=== PATIENT | female | born 1945 | race Caucasian/White ===

== ENCOUNTER 2016-07-11 10:33 | Outpatient (RCR) | payer MEDICARE ==
[~2016-07-11 10:33] MED LIST: ASPI-586 PO; ESTR0.5T3 VG; FLUT9.9S NS; LORA0.5T PO; METO-270 PO; PROP20TA5 PO; [UNRECOGNIZED DRUG - CODE] OP
--- OUTSIDE RECORDS SUMMARY | 2016-07-11 10:39 | XMS REPORT | Continuity of Care Document ---
Author Author [facility] Organization [facility] Address Unknown Phone Unavailable Care Team Providers Care Welding Machine Operator Thermit Name Role Phone Yash Johnson PCP [phone] Source Comments Some departments are not documenting in the electronic medical record. If you do not see the information that you expected, contact Release of Information in the Health Information Management department at [phone] for further assistance in locating additional records.[facility] Active Allergies and Adverse Reactions Allergen Noted Date Severity Reactions Comments Keflex 04/11/2016 Low UNKNOWN Current Medications Prescription Sig. Disp. Refills Start End Date Status Date propranolol (INDERAL) 20 Take 20 mg by mouth as Active mg tablet Needed (Pt takes after, metoprolol: Take one tablet if pulse exceeds 150-188 and if pulse and chest pain persists take one more tablet in an hour.). LORazepam (ATIVAN) 0.5 mg Take 1 Tab by mouth three Active tablet times daily. 2-3 Tablets taken daily; pt trying to take 2 tablets daily meloxicam (MOBIC) 7.5 mg Take 7.5 mg by mouth Active tablet twice weekly. Pt not taking daily as directed HYDROcodone-acetaminophen Take 1 Tab by mouth every Active (ZYDONE) 7.5-400 mg 6 hours as needed for tablet Pain (pt takes maybe 5 times a month) other medication 1 Dose four times daily. Active Eye drops aspirin 81 mg chewable Take 81 mg by mouth Active tablet daily. Take with food. fluticasone (FLOVENT HFA) Inhale 2 Puffs by mouth Active 110 mcg/actuation inhaler as Needed for Other.... MULTIVITAMIN WITH Take by mouth daily. Active MINERALS (ONE-A-DAY 50 PLUS PO) Active Problems Problem Noted Date AVNRT (AV marquita re-entry tachycardia) ([facility]) 06/01/2016 Overview: 05/31/16 SVT Ablation--Slow pathway modification for typical AVNRT - Dr. Knowles SVT (supraventricular tachycardia) (HCC) 05/31/2016 Tachycardia 05/17/2016 Overview: 03/2016 PioneerGEORGE: Echocardiogram -- Normal 03/2016 Pioneer MS: Stress thallium - "normal" 04/13/16 ILR implant - Medtronic Linq - Essential hypertension 05/17/2016 Hypercholesteremia 05/17/2016 JULIO (obstructive sleep apnea) 05/17/2016 Chronic headache 05/17/2016 Most Recent Encounters Date Type Specialty Providers Description 07/01/2016 Telephone Cardiology Joan Blackman RN Follow-up Phone Call - regarding ILR report- MPE recommendations 06/22/2016 Hospital Cardiology Temo Knowles MD Encounter 06/22/2016 Telephone Cardiology Joan Blackman RN HRM - Abnormal Results (Remote Device - Abnormal Rhythms) - Linq- frequent PVCs 06/22/2016 Orders Only Cardiology Temo Knowles MD Essential hypertension (Primary Dx); Hypercholesteremia; SVT (supraventricular tachycardia) (HCC); AVNRT (AV marquita re-entry tachycardia) (HCC); Tachycardia 06/21/2016 Hospital Cardiology Temo Knowles MD Encounter 06/01/2016 Telephone Cardiology Ginny Lewis RN 06/01/2016 Telephone Cardiology Alen Lara Remote Monitoring Questions - LM on pt's cell phone number to send a remote transmission from LINQ monitor to see add'l information. 05/31/2016 Hospital Cardiology Temo Knowles MD Encounter 05/31/2016 Hospital Cardiology Temo Knowles MD SVT ( supraventricular Encounter tachycardia) (HCC) 05/31/2016 Surgery Cardiology Temo Knowles MD Supraventricular Tachycardia Radiofrequency Ablation 05/30/2016 Anesthesia Cardiology Kermit Vega MD Event 05/30/2016 Pre-Admit Cardiology Taisha Lucia, NAVAL DESIGNER-C Orders Only 05/26/2016 Documentation Cardiology Magalie Wade, RN Labs Only - cbc, mg, bmp 05/24/2016 Documentation Cardiology Magalie Wade, flow match sofa cutter Request - pre procedure lab orders to [facility] 05/20/2016 Telephone Cardiology Trang Giang, Remote Monitoring RN Questions - symptom triggers 05/19/2016 Telephone Cardiology Mary Felix RN HRM - Abnormal Results (Remote Device - Abnormal Rhythms) - PVCs 05/18/2016 Documentation Cardiology Rj Bautista RN Precertification - Medicare 05/18/2016 Telephone Cardiology Kaela Pichardo LPN Procedure - Schedule ablation 05/17/2016 Office Visit Cardiology Temo Knowles MD SVT - possible SVT ablation 05/17/2016 Hospital Cardiology Temo Knowles MD Canceled (Error) Encounter 05/17/2016 Pre-Procedure Cardiology Magalie Wade RN EP Pre-Procedure Instructions Instructions - Electropysiology study with SVT ablation 05/17/2016 [facility] Cardiology Temo Knowles MD Encounter 05/11/2016 Office Visit Optometry Aileen Gallo, OD Visual disturbance (Primary Dx); Posterior vitreous detachment of both eyes; Pseudophakia of both eyes; ERM OS (epiretinal membrane, left eye); Anisometropia 05/06/2016 Telephone Cardiology Feliz Gonzalez RN HRM - Abnormal Results (Remote Device - Abnormal Rhythms) - LINQ symptom triggered / tachy event 05/0505/06/2016 Telephone Cardiology Alen Lara Remote Monitoring Questions - LM for pt to send a remote transmission from LINQ monitor to see any stored information. 05/03/2016 Telephone Cardiology Minda Palacios RN Other - SVT ablation discussion 05/01/2016 Documentation Cardiology Temo Knowles MD SVT 04/29/2016 Telephone Cardiology Feliz Gonzalez RN HRM - Abnormal Results (Remote Device - Abnormal Rhythms) - LINQ symptom events from 04/2804/29/2016 Telephone Cardiology Alen Lara Remote Monitoring Questions - LM for pt to send a remote transmission from LINQ monitor to see stored symptom triggered event. Pt verbalized understanding and sent full transmission. 04/18/2016 Telephone Cardiology Fany Rosales RN Follow-up Phone Call - LINQ tachy event 04/14/2016 Hospital Cardiology Temo Knowles MD Encounter 04/14/2016 Telephone Cardiology Kaela Pichardo LPN Remote Monitoring Questions - Needs help in setting it up 04/13/2016 Hospital Cardiology Temo Knowles MD Encounter 04/13/2016 Office Visit Cardiology Temo Knowles MD New Patient - Tachycardia ref Dr. Yash Johnson 04/13/2016 Documentation Cardiology Rj Bautista RN Precertification - Medicare 04/11/2016 Telephone Cardiology Kaela Pichardo LPN Patient Information - Returning call 04/11/2016 Patient Profile Cardiology Tiffanie Pappas Patient - Tacycardia Social History Tobacco Use Types Packs/Day Years Used Date Never Smoker Smokeless Tobacco: Never Used Alcohol Use Drinks/Week oz/Week Comments Yes Social Last Filed Vital Signs Vital Sign Reading Time Taken Blood Pressure 127/71 05/31/2016 4:00 PM CDT Pulse 60 05/31/2016 4:00 PM CDT Temperature 36.8 C (98.2 F) 05/31/2016 9:55 AM CDT Respiratory Rate - - Height 1.651 m (5' 5") 05/31/2016 6:00 AM CDT Weight 55.792 kg (123 lb) 05/31/2016 6:00 AM CDT Body Mass Index 20.47 05/31/2016 6:00 AM CDT Oxygen Saturation 95% 05/31/2016 4:00 PM CDT Plan of Care Date Type Specialty Providers Description 07/26/2016 Appointment Cardiology Temo Knowles MD [address] [facility] [place] [address] [phone] (Fax) 08/09/2016 Appointment Ophthalmology Aileen Gallo, OD [address] [place] [address] [phone] (Fax) 08/30/2016 Appointment Cardiology Temo Knowles MD [address] [facility] [address] [place] [address] [phone] (Fax) 08/30/2016 Appointment Cardiology Temo Knowles MD [address] [facility] [address] [address] [place] [address] [phone] (Fax) Health Maintenance Due Date Last Done Comments Hepatitis C Screening 1945 Physical (Comprehensive) 1952 Exam Pertussis Vaccine 1956 Tetanus Vaccine 1962 Breast Cancer Screening 1985 Colorectal Cancer 1995 Screening Shingles Vaccine 2005 Osteoporosis Screening 2010 Prevnar/Pneumovax (#1) 2010 Influenza Vaccine 05/19/2016 Procedures from Last 3 Months Procedure Name Priority Date/Time Associated Diagnosis Comments PROCEDURES-SCAN 06/02/2016 Results for this 10:53 AM CDT procedure are in the results section. PROCEDURES-SCAN 06/02/2016 Results for this 10:52 AM CDT procedure are in the results section. PROCEDURES-SCAN 06/02/2016 Results for this 10:52 AM CDT procedure are in the results section. PROCEDURES-SCAN 06/02/2016 Results for this 10:41 AM CDT procedure are in the results section. Results from Last 3 Months DEVICE EVALUATION - REMOTE ILR (06/22/2016 11:26 AM)Only the most recent of 3 results within the time period is included. Component Value Range Device Implanted By Dr.Martin Knowles Generator Model # [id number] Generator Serial # [id number] Generator Implnat Date 04/13/16 Remote Monitor Serial# [id number] YEE/EOL Indicator per transmitter Generator Termite Treater Dailymotion Wireless Generator Yes Device Type ILR Device Goldsmith Carelink Express Transmitter Compatible Permanent Comments r waves 0.28-0.34mV on date of implant ILR History of Afib no ILR Symptom Duration 4 7.5 mins each ILR Tachy Rate 158 ILR Tachy Duration 16 ILR Pause Duration 3 ILR Lev Rate 30 ILR Lev Duration 4 ILR AT Events Since Last n/a Interrogation ILR AT Lifetime Events as n/a of EP Device Followed By MAC ILR AF Rate AF only ILR AF Duration episodes > 6 mins ILR Current Monitoring 06/21/2016 to 07/21/2016 Period ILR Date of Last Daily 07/01/2016 Connection ILR Lifetime Events as of 07/01/2016 Datetion ILR Symptom Events Since 4 Last Interrogation ILR Symptom Lifetime 12 Events as of ILR Tachy Events Since 0 Last Interrogation ILR Tachy Lifetime Events 7 as of ILR Pause Events Since 0 Last Interrogation ILR Pause Lifetime Events 0 as of ILR Lev Events Since 0 Last Interrogation ILR Lev Lifetime Events 0 as of ILR AF Events Since Last 0 Interrogation ILR AF Lifetime Events as 0 of ILR Percent Time in AT/AF 0.0% Events Since Last Interrogation ILR Percent Time in AT/AF 0.0% Lifetime of Events as of ILR Battery Status OK ILR Presenting ECG Strip 06/22/16 SR with pvc's Generator Location Left Narrative [07/01/2016 4:04:44 PM - ALEN LARA] Reviewed Full Report. No new events to report. Will continue to monitor pt. I will route to Dr. Perez in the EP lab at [facility] for review and co-sign. Dr. Knowles is out of the office. Pt with relatively frequent VPDs--Sxic and no recurrent SVT.At this time we will get a 24 Hour Holter, either here at [facility] or with Dr. Esquivel to quantify her VPDs per 24 hrs and the we will likely initiate Mexilitine 200 mgBID, even if not > 20%, etc. Since her VPDs are Sxic. Temo Knowles MD [06/22/2016 4:30:58 PM - DENAE KOENIG] Full Report received. VRH shows appropriate botello curve distribution of HR. #19 Symptom SR with PVC's and artifact. #18 Symptom SR in the 90's with PVC's. Deemed WNL. Please click blue HRM Data Sheet Hyperlink for Report #18 #17 Symptom 06/04/16 @ 15:06 majority of strips shows a ST at a rate just above 100 bpm, with pvc's and some artifact. #16 Symptom 06/04/16 @ 14:[address] in the low 100's with frequent PVC's. Called pt's home to discuss symptoms, pt not available. Spoke with family member that relayed he would tell the pt the transmission was received and reviewed. Family member mention the pt had been working in the barn more the past few days, but I explained the symptoms were from 06/19/16. Educated to have pt call if she had any concerns or questions. Routed to [facility] for review and sign off. [06/22/2016 11:27:45 AM - ALEN LARA] Reviewed Summary Report. Two symptom triggered events rec'd #19 Symptom 06/19 @ 23:07 the 30 sec strip shows SR in the 80's-90's. Plot graph indicates possible premature contractions occurred between 2-5 min prior to symptom trigger activation. #16 Symptom / @ 14:33 the 30 sec strip shows SA in the 90's-100's with freq/trigeminal PVCs. Pt may need to send a remote transmission to see any stored information. Strips were scanned to review and I will route to Dr. Knowles for review and co-sign. EP nurse was flagged to review and f/u if needed. PROCEDURES-SCAN (06/02/2016 10:53 AM) Narrative Ordered by an unspecified provider. PROCEDURES-SCAN (06/02/2016 10:52 AM) Narrative Ordered by an unspecified provider. PROCEDURES-SCAN (06/02/2016 10:52 AM) Narrative Ordered by an unspecified provider. PROCEDURES-SCAN (06/02/2016 10:41 AM) Narrative Ordered by an unspecified provider. EP STUDY (05/31/2016 5:30 PM) Impressions : 1.Typical AVNRT easily and reproducibly induced. 2.Successful AVN Modification/ Slow Pathway Ablation. 3.NO evidence of Antegrade slow pathway function post ablation was present.ONLY Retrograde remnant slow pathway was present post RFA with a RG only jump and no echos and no reentry.No SVT could be induced post RFA despite aggressive programmed stimulation. PLAN: 1.We will monitor the patient overnight in the hospital with plans for discharge in the morning. 2.Will stop her Toprol. Narrative BRIEF SUMMARY: S/P Successful RFA for typical AVNRT Patient also had inducible atrial flutter it was very brief and nonsustained. With standard SVT catheter placement the earliest atrial activation was the His-A. CS activation was proximal to distal. It is possible that this is an isthmus-dependent atrial flutter but was not able to sustain the rhythm long enough to map.It is UNLIKELY that this is currently a clinically significant arrhythmia. Typical AVNRT was easily and reproducibly induced. First RF application just outside the os of the coronary sinus and the typical slow pathway location resulted in no SVT induced and dramatic modification of the slow pathway.Additional RFA resulted in no antegrade evidence of slow pathway function, and no inducible SVT, a retrograde slow pathway noted with a "jump". No evidence of her entry, no echo beats, et cetera. No evidence of accessory pathway. Pt. Tolerated the procedure well. DC home possibly later this evening if she is clinically stable Changes in her medications will include:Discontinuation of Toprol-XL She'll continue to utilize her Medtronic Reveal LinQ Implantable Looping Monitor device with any recurrent symptoms. We will make sure her Medtronic Reveal LinQ Implantable Looping Monitor Device is "cleared" prior to discharge. PROCEDURE: AV Node Modification-AVNRT RFA --Comprehensive EP study with coronary sinus catheter placement. --Three-dimensional electroanatomic mapping using Ensite NavX. --Moderate sedation. --SVT Ablation--Slow pathway modification for typical AVNRT. TRANSMISSION SYSTEM OPERATOR:Temo Knowles M.D. DIVISIONAL STOREKEEPER:None DATE:05/31/2016 INDICATION FOR PROCEDURE:Recurrent SVT CONSENT: The risks, benefits, indications and alternatives to the procedure were explained in detail with the patient and discussed at length prior to the procedure. The patient expressed understanding of the risks and consented to the procedure. All questions asked were answered and all permits were signed.The patient was transported to the Electrophysiology Laboratory in a non-sedated state and was placed supine on the fluoroscopy table. SEDATION: The patient underwent moderate sedation using Versed and Fentanyl administered by a trained Registered Nurse whom I supervised. Continuous blood pressure, heart rate and O2 saturation monitoring with supplemental oxygen as needed was utilized throughout the procedure. ANESTHESIA: Marcaine 0.25% was injected into subcutaneous tissue for local anesthesia. OTHER MEDICATIONS:NONE ACCESS: The left and right groins were prepped and draped in a sterile fashion. Marcaine 0.25% was injected into the subcutaneous tissue overlying the right and left femoral veins. The right and left femoral veins were accessed using the modified Seldinger technique with placement of sheaths and catheters as described below. CATHETERS USED: 1.EP Janet-curve hexapolar catheter placed via access with a 6 [place]an sheath in the left femoral vein and advanced to the right ventricular apex. 2.EP His-curve quadrapolar catheter placed via access with a 6 [place] sheath in the left femoral vein and advanced to the His position. 3.EP Janet-curve quadrapolar catheter placed via access with a 6 [place] sheath in the left femoral vein and advanced to the high right atrium. 4.EP decapolar deflectable catheter placed via access with a 6 [place] sheath in the right femoral vein and advanced to the coronary sinus. 5.4.0 mm [id number] EPTmapping/ablation catheter placed via access with a 7 [place] sheath in the right femoral vein and advanced to the right atrium to be used for mapping and ablation. DETAILS OF PROCEDURE: Electrophysiology Study & Programmed Stimulation: Following insertion of catheters as above, baseline measurements were obtained and programmed stimulation was performed as described below. Programmed extra stimulation was performed with evidence of dual AV marquita physiology and SVT was Induced. Following ablation, a repeat EP study was performed. EP STUDY FINDINGS: Programmed Stimulation: 1.Incremental Atrial pacing. 2.Incremental Ventricular. 3.Single and double atrial extra stimuli were performed at drive trains of600 msec. 4.Single ventricular extra stimuli were performed at drive train of 600 msec. Baseline Measurements: Initial:Sinus rhythm, cycle length 960 msec, P-R 140 msec, QRS 90 msec, Q-T 401 msec. Final:Sinus rhythm, cycle length 840 msec, P-R 139 msec, QRS 108 msec, Q-T 389 msec. Sinus Node Function: The patient was in normal sinus rhythm at the beginning of the procedure. AV Marquita Function: --A-H interval at baseline was 80 msec at beginning and 90 msec at completion of procedure. --Anterograde AV Wenckebach -Baseline:340 with a shift to SP around 420 ms -Post RFA Baseline:430 --Retrograde AV Wenckebach: -Baseline:330 -Post RFA Baseline:330 --Antegrade AVN ERP: -Baseline: 600/280 ms Jumps and Echos: 600/300 jump and Echo beat SVT Induced at 600/400/310 ms -Post RFA Baseline: 600/360 ms 600/400/380 Jumps and Echos: NONE--Antegrade ONLY Retrograde remnant slow pathway was present post RFA with a RG only jump and no echos and no reentry. NO evidence of Antegrade slow pathway function post ablation. No SVT could be induced post RFA despite aggressive programmed stimulation. --Retrograde AVN ERP: -Baseline: 600/< 280 ms ms Jumps and Echos:None at baseline -Post RFA Baseline: 600/< 270 ms Jumps and Echos: 600/340 to SP but NO reentry Atrial Function: A.Atrial ERP: Baseline:600/250 Post RFA Baseline:600/260 B.NONSUSTAINED Atrial flutter was reproducibly /340 ms but was never longer than a few seconds. His Purkinje System Function: A.H-V interval at baseline was 45 msec and was without significant change post RFA. There was no block below the His noted during testing. Accessory Pathway: No evidence of an accessory pathway was noted--with concentric and decremental antegrade and retrograde conduction via the AVN. ARRHYTHMIAS, MAPPING AND ABLATION: Arrhythmias Induced: A.Typical ANRT -SVT RY=983 -Induction:600/400/310 ms -Termination:Sensed single VPD and Overdrive V-pacing -Earliest RG atrial activation was the HBE-A -During SVT the WP=951 ms; the SHEPARD=36 ms -During SVT the VA time=16 ms -During SVT a sensed single VPD introduced when the His was refractory terminated SVT Mapping and Ablation: We advanced the EPT [id number] mapping/ablation catheter to the right atrium, and the His and AV node were mapped extensively using the intracrdiac 3-D mapping system and the HIS region was identified and displayed on the Litespriteite NavX mapping system. Applications of RF energy were delivered in the posterior-septal area of the slow pathway region.Just outside of the CS os. The CS os appeared to be very vertical and somewhat large therefore initially maintained some catheter stability without "falling in" to the CS was difficult. Ablation induced junctional beats/an accelerated junctional rhythm. We then repeated EP study.We were not able to induce tachycardia. ONLY Retrograde remnant slow pathway was present post RFA with a RG only jump and no echos and no reentry. NO evidence of Antegrade slow pathway function post ablation. No SVT could be induced post RFA despite aggressive programmed stimulation. Completion of Study: The catheters were then removed and the patient was transported to the outpatient holding area with plans for removal of the sheaths with manual pressure held until adequate hemostasis was noted. The patient tolerated the procedure well. No adverse events were noted at the end of the study. DEVICE EVALUATION - ILR (05/31/2016 3:07 PM) Component Value Range Device Implanted By Dr.Martin Knowles Generator Model # LNQ11 Generator Serial # [id number] Generator Implnat Date 04/13/16 Remote Monitor Serial# [id number] YEE/EOL Indicator per transmitter Generator Termite Treater Medtronic Wireless Generator Yes Device Type ILR Device Goldsmith Carelink Express Transmitter Compatible Permanent Comments r waves 0.28-0.34mV on date of implant ILR History of Afib no ILR Symptom Duration 4 7.5 mins each ILR Tachy Rate 158 ILR Tachy Duration 16 ILR Pause Duration 3 ILR Lev Rate 30 ILR Lev Duration 4 ILR AT Events Since Last n/a Interrogation ILR AT Lifetime Events as n/a of EP Device Followed By MAC ILR AF Rate AF only ILR AF Duration episodes > 6 mins Generator Location Left Narrative Inpt Medtronic LINQ interrogation by Loni Garza with Dailymotion. See scanned Implantable Device Flowsheet. Pt was inpt for EP study, SVT ablation.Cleared after that. Report to Dr. Knowles. POC ACTIVATED CLOTTING TIME (05/31/2016 9:52 AM) Component Value Range Activated Clotting Time 140 s POC PT/INR (05/31/2016 6:44 AM) Component Value Range INR POC 0.9 0.8-1.2 MAGNESIUM (05/26/2016) Component Value Range Magnesium 2.3 Specimen Blood BASIC METABOLIC PANEL (05/26/2016) Component Value Range Sodium 138 Potassium 4.7 Chloride 101 CO2 33.0 Blood Urea Nitrogen 20 Creatinine 0.7 Glucose 100 Calcium 9.8 Anion Gap 9 Specimen Blood CBC (05/26/2016) Component Value Range White Blood Cells 10.94 (A) 5.00-10.00 RBC 4.32 Hemoglobin 14.1 Hematocrit 42.0 MCV 97.2 (A) 80.0-97.0 MCH 32.6 (A) 27.0-31.0 MCHC 33.6 Platelet Count 207 RDW 13.3 Specimen Blood ECG/QRS (05/17/2016 11:05 AM) Component Value Range QRS DURATION 84 ILR IMPLANT (04/13/2016 1:57 PM) Component Value Range Device Implanted By Dr.Martin Knowles Generator Model # [id number] Generator Serial # [id number] Generator Implnat Date 04/13/16 Remote Monitor Serial# [id number] YEE/EOL Indicator per transmitter Generator Termite Treater Medtronic Generator Location Left Wireless Generator Yes Device Type ILR Device Goldsmith Carelink Express Transmitter Compatible Narrative PROCEDURE: Implantation of Medtronic LINQ implantable loop recorder (ILR). Willow Machine Tender: Temo Knowles M.D. Fellow:None INDICATION FOR PROCEDURE:Recurrent Tachycardia after failed external loop recorders to capture her rhythm. DETAILS OF PROCEDURE: Procedures/risks/rationale/options/benefits discussed with patient in detail and questions answered. The pt. And family if present expressed an understanding of the procedure and risks and wish to proceed. Informed Consent was obtained and permits signed. The patient received one dose of oral antibiotic prior to the procedure. The area over the mid left chest was prepped and draped in sterile fashion. Then local anesthesia with Lidocaine solution was injected into the subcutaneous tissue overlying the4-5th rib approximately 2-4 cm lateral to the sternum. A REVEAL business development associate tool was used to make a linwood in the skin.Using the injector tool, a tract/pocket was formed just under the skin in a diagonal course inferiorly toward the ventricle and the Medtronic LINQ ILR device was delivered using the same tract. Hemostasis was obtained.Steri-Strips if needed were placed and a sterile dressing were applied over the incision. The patient tolerated the procedure well. TESTING:R-waves detected and are recorded elsewhere in this note PROGRAMMING:The REVEAL LINQ device was programmed for Symptom activated events as well as auto detection for HRs less than 30 or 40 bpm, or greater than typically 167 bpm for 16 consecutive beats or periods of asystole > 3 secs. It will allow for up to 4 pt. Activated Events. ESTIMATED BLOOD LOSS: Less than 1 cc The patient tolerated the procedure well. SUCCESSFUL REVEAL LINQ IMPLANTABLE LOOPING RECORDER (ILR) IMPLANT
== END 2016-10-09 | disposition home or self-care (01) ==
LOC: CARD 10:33
PROVIDERS: ATTEND Internal Medicine Cardiovascular Disease
DX: I49.3 Ventricular premature depolarization (principal); R00.2 Palpitations; R42 Dizziness and giddiness
CPT/HCPCS: 93225; 93226

== ENCOUNTER 2017-01-25 20:00 | Outpatient (CLI) | payer MEDICARE | END 2017-01-26 06:45 | disposition home or self-care (01) | LOC: SLEEP 20:00 | PROVIDERS: ATTEND Otolaryngology Otolaryngology/Facial Plastic Surgery | DX: G47.33 Obstructive sleep apnea (adult) (pediatric) (principal) | CPT/HCPCS: 95811 ==

== ENCOUNTER 2017-10-04 18:29 | Inpatient (IN) | payer MEDICARE ==
[~2017-10-04] VITALS: Ht 162.6 cm; Wt 58.1 kg
[~2017-10-04 18:29] MED LIST changes: -METO-270 PO; +METO-387 PO; -[UNRECOGNIZED DRUG - CODE] OP; +[UNRECOGNIZED DRUG - CODE] OU
--- OUTSIDE RECORDS SUMMARY | 2017-10-04 18:35 | XMS REPORT | Continuity of Care Document ---
Author Author [employer] Organization [facility] Address Unknown Phone Unavailable Care Team Providers Care Filter Tender Jelly Name Role Phone [employer] Unavailable Unavailable Problems Medications Allergies, Adverse Reactions, Alerts Immunizations Results Vital Signs Encounters Location Location Details Encounter Type Encounter Number Reason For Visit Attending Provider ADM Date DC Date Status Source OUTPATIENT [id number] ELSA ANTHONY 05/01/2017 05/01/2017 Active [facility] OUTPATIENT [id number] ELSA ANTHONY 07/05/2017 07/05/2017 Active [facility] OUTPATIENT [id number] ELSA ANTHONY 08/08/2017 08/08/2017 Active [facility] OUTPATIENT [id number] ELSA ANTHONY 08/23/2017 08/23/2017 Active [facility] OUTPATIENT [id number] ELSA ANTHONY 09/12/2017 09/12/2017 Active [facility] O Active [facility] Procedures Plan of Care Social History Assessment and Plan Family History Advance Directives Functional Status
--- OUTSIDE RECORDS SUMMARY | 2017-10-04 18:36 | XMS REPORT | Encounter Summary ---
Author Author [facility] Organization [facility] Address Unknown Phone Unavailable Care Team Providers Care Adjuster And Inspector Name Role Phone PCP Unavailable Reason for Visit * Reason Comments Palpitations 9 month follow up Encounter Details Date Type Department Care Team Description 08/23/2017 Office Visit [facility] Cardiology Temo Knowles MD Palpitations ([address] follow up) [address] [place] [address] [place] [address] [phone] Social History Tobacco Use Types Packs/Day Years Used Date Never Smoker Smokeless Tobacco: Never Used Alcohol Use Drinks/Week oz/Week Comments Yes Social Sex Assigned at Date Recorded Not on file as of this encounter Last Filed Vital Signs Vital Sign Reading Time Taken Blood Pressure 140/70 08/23/2017 9:55 AM MARKET DEVELOPMENT MANAGER Pulse 74 08/23/2017 9:55 AM MARKET DEVELOPMENT MANAGER Temperature - - Respiratory Rate - - Oxygen Saturation - - Inhaled Oxygen - - Concentration Weight 57.7 kg (127 lb 3.2 oz) 08/23/2017 9:55 AM MARKET DEVELOPMENT MANAGER Height 165.1 cm (5' 5") 08/23/2017 9:55 AM MARKET DEVELOPMENT MANAGER Body Mass Index 21.17 08/23/2017 9:55 AM MARKET DEVELOPMENT MANAGER in this encounter Functional Status Functional Status Response Date of Assessment Does the patient have a hearing impairment: No 08/09/2016 Does the patient have a visual impairment: No 08/09/2016 Does the patient have impaired ambulation: No 08/09/2016 Does the patient have an activity of daily living No 08/09/2016 (ADL) impairment: Does the patient have an instrumental activity of No 08/09/2016 daily living (IADL) impairment: Cognitive Status Response Date of Assessment Does the patient have a cognitive impairment: No 08/09/2016 as of this encounter Instructions * Patient Instructions - Magalie Wade RN - 08/23/2017 10:00 AM MARKET DEVELOPMENT MANAGER follow up in [address] Knowles Start flecainide 50 mg twice daily Stop Diltiazem today. If you feel better after 5 days then restart ( rechallenge) the diltiazem If no better stay off of the diltiazem --Check your BP (Blood Pressure) daily and you may vary the time of day you check it. Monitor your blood pressure regularly Consider obtaining an automatic home blood pressure cuff if you don't already have one. Try to follow a low salt diet. If you smoke, make an honest effort to quit. Exercise helps with your blood pressure. Try to get at least 30 minutes of moderate intensity exercise at least 4 days a week. Your desired BP is with the top # less than 130 and bottom # less than 85. Call our office or your PCP if your blood pressure remains at or above the desired measurement consistently. If you have questions about your blood pressure readings, please contact the office. call to update medication list [phone] Visit with your sleep specialist about obstructive sleep apnea Have a regadenoson thallium completed with your primary care physician when completed have your pcp fax to [phone] in this encounter Progress Notes * Temo Knowles MD - 08/23/2017 10:00 AM MARKET DEVELOPMENT MANAGER Formatting of this note may be different from the original. Date of Service: 08/23/2017 Antionette Piedra is a 72 y.o. female. HPI I had the pleasure of seeing your patient Antionette Piedra in the [facility] as a part of the [facility] [place] office today for follow up regarding her tachypalpitations. Her Primary Forming Process Worker is Dr. Esquivel in [place], [place]. Ms. Piedra is an exceptionally pleasant 72 y.o. Female, who is accompanied by her equally pleasant spouse, Milton. In the past, she has also been accompanied by her Brother, Rubio, who has a Hx of palpitations himself. The past medical history and data below has been reviewed and updated by me with new events for today's visit. 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 NOTE: Prior intolerances to Toprol-XL (significant fatigue, headaches, hair loss, etc). Regarding her Palpitations: Please see Problem List and prior OV notes including Initial EP Consultation note on 04/13/16 for more detail. However, briefly: -- 2016: Increasing Sxs of palpitations despite PRN Propanolol. -- 01/23/16: Woke from sleep with tachypalpitations, diaphoresis, and LHedness-- HR 200 bpm --> Spontaneously terminated after 10-15 min while en route to [facility] ED. -- 01/2016: Evaluated by Dr. Esquivel --> Initiated Toprol-XL 25 mg daily --> Continued Sxs --> Increased Toprol-XL to 50 mg daily. -- 04/13/16 Initial EP Consultation -- 04/13/16: Medtronic Reveal LinQ Implantable Looping Monitor Implanted. -- 03/2016: Sxs of headaches --> Decreased Toprol-XL to 25 mg daily. -- 04/29/16: ILR documented Sxic SVT/PVCs with variable CLs, sudden-onset and terminations, and no clear P-waves-- most likely AVNRT. -- 05/31/16: Successful RFA for Typical AVNRT. She had inducible brief/NS-AFL, however it was UNLIKELY to be clinically significant. Post-Procedure DC'ed Toprol-XL for resting HRs in 40s-50s noted at last OV. -- 06/2016: Sxs of palpitations correlated with PACs/PVCs --> Issued Holter to quantify. -- 06/21/16: Holter (48-hr): Done via Dr. Esquivel's office.Predominant NSR, 68-112 bpm, Avg 85 bpm.There were 19 isolated and some interpolated PVCs and 1565 PACs.No sustained or nonsustained arrhythmias. -- 08/30/16: Initiated Diltiazem 120 mg daily (intolerant to Toprol-XL) for Sx- control. We instructed Ms Piedra that the amount of ectopy that she had did not warrant treatment. However she reported being markedly symptomatic and needed to pursue intervention. 11/23/16: Pt contacted our office inquiring if her Medtronic Reveal LinQ Implantable Looping Monitor was a contraindication to proceeding with an MRI of her pelvis and possibly also her head for sinus issues. She confirmed that she could not have an Open MRI but could have a Closed MRI. During this call, she also noted "lower HRs" detected by checking her pulse-- when she activated her ILR during these times, she had sinus rhythm with frequent PVCs (i.e., she was detecting functional bradycardia from her PVCs). -- 12/15/16: OV (Dr. Knowles): Medtronic Reveal LinQ Implantable Looping Monitor correlated palpitations with symptoms with sinus rhythm to sinus tachycardia with PACs and/or PVCs. She feels her Sxs are improved and does not warrant further Tx She STATES she has been feeling significantly tired. She notes that she will continue to feel palpitations occurring nearly daily. She also describes that she has been having issues with inflammation with her sacroilliac. She had obtained a sleep study, but was apparently having dental issues and Tx was ultimately discontinued per her Dentist's recommendation. Her SBPs at home have typically been in the upper 130s mmHg range, though she is not recording her BP daily. She denies any chest discomfort, shortness of breath, lightheadedness, dizziness , near syncope or syncope, PND or orthopnea. FHx, SHx and ROS documented and I have reviewed, with some pertinent features to include:Extensive +FHx of premature CAD/SCD (see 04/13/16 OV note for more detail). She is a Non-Smoker. Most pertinent ROS is included/discussed throughout the note, e.g. HPI and A/P. 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 She could not activate her Lenk for some reason. She is investigating connectivity issues. We have given her a phone contact to follow that up. But her device has not automatically recorded any arrhythmias either. Therefore I do not anticipate she has had recurrent SVT. She does however continue to activate for symptoms of palpitations or flutters which are consistent with her isolated PVCs. We discussed whether to treat those differently or not. She states they are bothering her enough that she would like them controlled. Her symptoms are nearly daily. Therefore will initiate flecainide 50 mg twice daily. Her last stress imaging was in 2014. Therefore I have asked her to pursue a Regadenosine thallium. We also discussed her diltiazem. She thinks it is contributing to her fatigue. We discussed her untreated sleep apnea. She stopped using her CPAP because of dental issues. We discussed that sleep apnea may be contributing to/causing her PVCs. Also contributing to/causing her elevated blood pressure, etc. Also that that is likely the cause of her fatigue. I strongly encouraged her to visit with the sleep specialist and she is not tolerating CPAP find alternative therapy. In the interim she will stop the diltiazem. After 5 days if she is feeling better I have asked her to rechallenge the diltiazem by restarting it and see if her symptoms recur. If she is not any better with regard to her fatigue off the diltiazem and she will remain off the diltiazem and monitor blood pressure closely to determine whether antihypertensive therapy as needed. If it is we will likely use an YI inhibitor. She is pleased with this plan however is not pleased that I recommended treating her sleep apnea. PLAN: -- Initiate Flecainide 50 mg BID -- We will pursue Regadenosine Thallium -- We discussed that if she does not hear back from our office with the results within one week, to contact our office regarding the results. We discussed if the stress test were abnormal, suggestive of CAD, or LV dysfunction etc we would potentially proceed with cardiac catheterization and possible PCI. We discussed the procedures and risks of the procedures. she verbalized a good understanding and wishes to proceed if needed. -- We will stop her Diltiazem for 4-5 days and she will assess if her fatigue is resolved -- If she feels improved off of Diltiazem, she will restart and rechallenge Diltiazem by discontinuing for 4-5 days again and assess her response -- If she continues to have symptoms of fatigue off Diltiazem, she will stay off Diltiazem if her BP is in accord -- We discussed the association between obstructive sleep apnea and AFIB and that inadequately Tx'd sleep apnea will increase the risk of recurrent AFIB and make controlling the AFIB much more difficult. Thus I emphasized the need to be strictly compliant with her CPAP, etc. And asked her to discuss with her PMD reassessing her CPAP settings if it hadn't been done over the last year. -- I have asked her to Check her BP (Blood Pressure) daily and vary the time of day she checks it. -- We discussed that exercise helps with her blood pressure and she should try to get at least 30 minutes of moderate intensity exercise at least 4 days a week. -- We discussed that her desired BP is less than 140 and less than 90. Ms. Piedra was educated regarding plan of care. She was instructed to call our office with any questions or concerns, as well as to notify us of any new or worsening symptoms. She verbalized understanding. I appreciate the opportunity to participate in the care of your patient. Please do not hesitate to contact me directly if you have any questions or further insights into her care. I have scheduled her follow-up with me in 6 month(s). Vitals: 08/23/17 0955 BP: 140/70 Pulse: 74 Weight: 57.7 kg (127 lb 3.2 oz) Height: 1.651 m (5' 5") Body mass index is 21.17 kg/(m^2). Past Medical History Patient Active Problem List Diagnosis Date Noted AVNRT (AV marquita re-entry tachycardia) (HCC) 06/01/2016 05/31/16 SVT Ablation--Slow pathway modification for typical AVNRT - Dr. Knowles SVT (supraventricular tachycardia) (HCC) 05/31/2016 Tachycardia 05/17/201603/2016 [place]: Echocardiogram -- Normal 03/2016 [place]: Stress thallium - "normal" 04/13/16 ILR implant - Medtronic Linq - Essential hypertension 05/17/2016 Hypercholesteremia 05/17/2016 JULIO (obstructive sleep apnea) 05/17/2016 Chronic headache 05/17/2016 Review of Systems Constitution: Positive for weakness and malaise/fatigue. HENT: Positive for tinnitus. Eyes: Positive for blurred vision, photophobia and visual disturbance. Cardiovascular: Positive for claudication and palpitations. Respiratory: Positive for shortness of breath. Endocrine: Positive for cold intolerance. Hematologic/Lymphatic: Bruises/bleeds easily. Skin: Positive for dry skin. Musculoskeletal: Positive for arthritis, back pain, joint pain, joint swelling and muscle weakness. Gastrointestinal: Positive for bloating, abdominal pain, change in bowel habit, flatus and melena. Genitourinary: Positive for bladder incontinence, nocturia and urgency. Neurological: Positive for difficulty with concentration, disturbances in coordination, excessive daytime sleepiness, focal weakness and loss of balance. Psychiatric/Behavioral: The patient is nervous/anxious. Allergic/Immunologic: Positive for environmental allergies. Physical Exam Constitutional: She is in no acute distress, resting comfortably. Skin/Integument: Warm and dry. Eyes: PERRL, sclera are non-icteric and no xanthelasmas noted. ENT: Hearing is intact, Oropharynx is clear and moist. Heme/Lym/Immun: Supple neck, without thyromegaly. Respiratory-Pulmonary/Chest: Effort normal and breath sounds normal. No respiratory distress or accessory muscle use. No obvious tracheal deviation. Clear to auscultation bilaterally. Cardiovascular: No evidence of increased jugular venous pressure, carotids are 2+/4+ equal bilaterally, without obvious bruit. Regular rhythm, S1, S2. I do not appreciate any significant murmur today. No heaves, thrills or rubs. Musc/Skeletal-Extremities: Without significant peripheral edema. With what appears to be full ROM. LINQ Site: Is well-healed. Neuro: Patient is alert and oriented to person, place, and time. Psych: Patient does not appear anxious, she appears appropriate, with normal non-pressured speech and what appears to be appropriate judgement Cardiovascular Studies ECG today demonstrates sinus rhythm at 74 bpm with 2 isolated PVCs. Medtronic [employer] LinQ Implantable Monitor. Full device check performed with reprogramming which I have extensively reviewed. Changes, if done, as discussed below and is detailed in other dictation/note. There have been 3 symptom activated events since his office visit in November 2016. One was in January, always in February, and one was June. Most recent episode in June documents sinus rhythm with a rare PVC. The prior episodes were similar sinus rhythm with isolated PVCs and occasional ventricular couplet. Problems Addressed Today Encounter Diagnoses Name Primary? PVC (premature ventricular contraction) Essential hypertension Current Medications (including today's revisions) aspirin 81 mg chewable tablet Take 81 mg by mouth daily. Take with food. DOCOSAHEXANOIC ACID/EPA (FISH OIL PO) Take by mouth. ESTRADIOL VA Insert or Apply 0.5 mg to vaginal area three times weekly. FEXOFENADINE HCL (PAM PO) Take by mouth as Needed. flecainide (TAMBOCOR) 50 mg tablet Take 1 tablet by mouth twice daily. LORazepam (ATIVAN) 0.5 mg tablet Take 1 Tab by mouth every 12 hours as needed. 2-3 Tablets taken daily; pt trying to take 2 tablets daily MULTIVITAMIN WITH MINERALS (ONE-A-DAY 50 PLUS PO) Take by mouth daily. naproxen-diphenhydramine (ALEVE PM) 220-25 mg tab Take 1 tablet by mouth at bedtime as needed. omeprazole DR(+) (PRILOSEC) 20 mg capsule Take 20 mg by mouth daily before breakfast. other medication Take 1 Dose by mouth daily. Medication Name & Strength: Prevagen Dose(how many): 1 tab Frequency(how often): qd other medication 1 Dose four times daily. Eye drops propranolol (INDERAL) 20 mg tablet Take 20 mg by mouth as Needed (Pt takes after, metoprolol: Take one tablet if pulse exceeds 150-188 and if pulse and chest pain persists take one more tablet in an hour.). traMADol (ULTRAM) 50 mg tablet Take 50 mg by mouth as Needed for Pain. Documentation recorded by Fam Perez, acting as scribe for Temo Knowles M.D. in this encounter Plan of Treatment Name Priority Associated Diagnoses Order Schedule ECG 12-LEAD Routine PVC (premature Ordered: 08/23/2017 ventricular contraction) Essential hypertension as of this encounter Results * ECG/QRS (08/23/2017 10:26 AM) Component Value Ref Range QRS DURATION 82 Specimen Performing Laboratory OTHER OUTSIDE LAB in this encounter Visit Diagnoses Diagnosis PVC (premature ventricular contraction) Other premature beats Essential hypertension Unspecified essential hypertension in this encounter
--- OUTSIDE RECORDS SUMMARY | 2017-10-04 18:36 | XMS REPORT | Encounter Summary ---
Author Author [facility] Organization [facility] Address Unknown Phone Unavailable Care Team Providers Care Trumpet Teacher Name Role Phone PCP Unavailable Encounter Details Date Type Department Care Team Description 07/05/2017 [facility] Cardiology Temo Knowles MD Encounter Remote Device Check [address] [facility] [phone] [address] [place] [address] [phone] Social History Tobacco Use Types Packs/Day Years Used Date Never Smoker Smokeless Tobacco: Never Used Alcohol Use Drinks/Week oz/Week Comments Yes Social Sex Assigned at Date Recorded Not on file as of this encounter Functional Status Functional Status Response [...] impairment: No 08/09/2016 as of this encounter Medications at Time of Discharge Medication Sig. Disp. Refills Start Date End Date aspirin 81 mg chewable Take 81 mg by mouth tablet daily. Take with food. FEXOFENADINE HCL (PAM Take by mouth as Needed. PO) LORazepam (ATIVAN) 0.5 mg Take 1 Tab by mouth every tablet 12 hours as needed. 2-3 Tablets taken daily; pt trying to take 2 tablets daily MULTIVITAMIN WITH Take by mouth daily. MINERALS (ONE-A-DAY 50 PLUS PO) other medication 1 Dose four times daily. Eye drops propranolol (INDERAL) 20 Take 20 mg by mouth as mg tablet Needed (Pt takes after, metoprolol: Take one tablet if pulse exceeds 150-188 and if pulse and chest pain persists take one more tablet in an hour.). diltiazem CD (CARDIZEM Take 1 Cap by mouth 90 Cap 11 08/30/201602/2017 CD) 120 mg capsule daily. estradiol (ESTRACE) 1 mg Take 1 mg by mouth daily. 08/23/2017 tablet HYDROcodone/acetaminophen Take 1 Tab by mouth every 08/23/2017 (NORCO) 7.5/325 mg tablet 6 hours as needed for Pain meloxicam (MOBIC) 7.5 mg Take 7.5 mg by mouth as 08/23/2017 tablet Needed for Pain. as of this encounter Plan of Treatment Not on fileas of this encounter Results * DEVICE EVALUATION - REMOTE ILR (07/11/2017 12:05 PM) Component Value Ref Range Device Implanted By Dr.Martin Knowles Generator Model # [id number] Generator Serial # [id number] Generator Implnat Date 04/13/16 Remote Monitor Serial# [id number] YEE/EOL Indicator per transmitter Generator [employer]it[employer] Wireless Generator Yes Device Type ILR Device Temple [employer] Express Transmitter Compatible Permanent Comments r waves 0.28-0.34mV on date of implant ILR History of Afib no ILR Symptom Duration 4 7.5 mins each ILR Tachy Rate 158 ILR Tachy Duration 16 ILR Pause Duration 3 ILR Lev Rate 30 ILR Lev Duration 4 ILR AT Events Since Last NA Interrogation ILR AT Lifetime Events as NA of EP Device Followed By MAC ILR AF Rate AF only ILR AF Duration episodes > 6 mins On Anticoagulation No Generator Location Left ILR Current Monitoring 07/05/17-08/05/17 Period ILR Date of Last Daily 06/26/17 Connection ILR Battery Status OK ILR Symptom Events Since 3 Last Interrogation ILR Symptom Lifetime 25 Events as of ILR Tachy Events Since [...] 0 of ILR Percent Time in AT/AF 0 Events Since Last Interrogation ILR Percent Time in AT/AF 0.0 Lifetime of Events as of ILR Presenting ECG Strip 06/26/17 @ 2304 SR 68 bpm ILR Lifetime Events as of 06/26/17 Datetion Specimen Performing Laboratory OTHER OUTSIDE LAB Narrative [07/11/2017 12:07:32 PM - YAKOV DYER] EP RN notified of abnormal transmission for f/u Presenting EGM: 06/26/17 @ 2304 SR 68 bpm Summary report received and reviewed. 3 new symptom activated events, 1 available for review. [employer] message sent to patient requesting manual transmission #31- Symptom- 06/23/17 @ 1733- SR 68 bpm with ectopy Strip(s) scanned for further review, will continue to monitor. Routed to Dr. Knowles for review/cosign. in this encounter Visit Diagnoses Diagnosis Essential hypertension Unspecified essential hypertension Hypercholesteremia Pure hypercholesterolemia SVT (supraventricular tachycardia) (HCC) Other specified cardiac dysrhythmias AVNRT (AV marquita re-entry tachycardia) (HCC) Other specified cardiac dysrhythmias Tachycardia Tachycardia, unspecified in this encounter
--- OUTSIDE RECORDS SUMMARY | 2017-10-04 18:36 | XMS REPORT | Clinical Summary ---
Author Author [facility] Organization [facility] Address Unknown Phone Unavailable Care Team Providers Care Guidance Adviser Name Role Phone PCP Unavailable Source Comments Some departments are not documenting in the electronic medical record. If you do not see the information that you expected, contact Release of Information in the Health Information Management department at [phone] for further assistance in locating additional records.[facility] Allergies Active Allergy Reactions Severity Noted Date Comments Cephalexin UNKNOWN Low 04/11/2016 Levofloxacin SEE COMMENTS Low 08/23/2017 intolerant Oxybutynin Chloride NAUSEA AND VOMITING Low 09/19/2016 Current Medications Prescription Sig. Disp. Refills Start End Date Status Date propranolol (INDERAL) 20 Take 20 mg by mouth as Active mg tablet Needed (Pt takes after, metoprolol: Take one tablet if pulse exceeds 150-188 and if pulse and chest pain persists take one more tablet in an hour.). LORazepam (ATIVAN) 0.5 mg Take 1 Tab by mouth every Active tablet 12 hours as needed. 2-3 Tablets taken daily; pt trying to take 2 tablets daily other medication 1 Dose four times daily. Active Eye drops aspirin 81 mg chewable Take 81 mg by mouth Active tablet daily. Take with food. MULTIVITAMIN WITH Take by mouth daily. Active MINERALS (ONE-A-DAY 50 PLUS PO) FEXOFENADINE HCL (PAM Take by mouth as Needed. Active PO) DOCOSAHEXANOIC ACID/EPA Take by mouth. Active (FISH OIL PO) ESTRADIOL VA Insert or Apply 0.5 mg to Active vaginal area three times weekly. traMADol (ULTRAM) 50 mg Take 50 mg by mouth as Active tablet Needed for Pain. omeprazole DR(+) Take 20 mg by mouth daily Active (PRILOSEC) 20 mg capsule before breakfast. other medication Take 1 Dose by mouth Active daily. Medication Name & Strength: Prevagen Dose(how many): 1 tab Frequency(how often): qd naproxen-diphenhydramine Take 1 tablet by mouth at Active (ALEVE PM) 220-25 mg tab bedtime as needed. flecainide (TAMBOCOR) 50 Take 1 tablet by mouth 180 tablet 3 08/23/20 Active mg tablet twice daily. 17 Active Problems Problem Noted Date AVNRT (AV marquita re-entry tachycardia) ([facility]) 06/01/2016 Overview: 05/31/16 SVT Ablation--Slow pathway modification for typical AVNRT - Dr. Knowles SVT (supraventricular tachycardia) ([facility]) 05/31/2016 Tachycardia 05/17/2016 Overview: 03/2016 [place], [place]: Echocardiogram -- Normal 03/2016 [place]: Stress thallium - "normal" 04/13/16 ILR implant - Medtronic Linq - Essential hypertension 05/17/2016 Hypercholesteremia 05/17/2016 JULIO (obstructive sleep apnea) 05/17/2016 Chronic headache 05/17/2016 Encounters Date Type Specialty Care Team Description 09/20/2017 Telephone Cardiology Gina Frank RN Medication Question (questions on Cartia ) 09/14/2017 Telephone Cardiology Magalie Wade RN 09/12/2017 [facility] Cardiology Temo Knowles MD Encounter 08/23/2017 Office Visit Cardiology Temo Knowles MD Palpitations ( 9 month follow up) 08/23/2017 [facility] Cardiology Temo Knowles MD Encounter 08/08/2017 [facility] Cardiology Temo Knowles MD Encounter 08/07/2017 Office Visit Ophthalmology Aileen Gallo, OD PVD ( posterior vitreous detachment), bilateral (Primary Dx);Pseudophakia of both eyes;Epiretinal membrane (ERM) of left eye;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 [facility] Cardiology Temo Knowles MD Encounter from Last 3 Months Family History Medical History Relation Name Comments Cataract Mother Amblyopia Neg Hx Blindness Neg Hx Glaucoma Neg Hx Macular Degen Neg Hx Retinal Detachment Neg Hx Strabismus Neg Hx Relation Name Status Comments Mother Social History Tobacco Use Types Packs/Day Years Used Date Never Smoker Smokeless Tobacco: Never Used Alcohol Use Drinks/Week oz/Week Comments Yes Social Sex Assigned at Date Recorded Not on file Last Filed Vital Signs Vital Sign Reading Time Taken Blood Pressure 140/70 08/23/2017 9:55 AM ELASTIC ATTACHER COVERSTITCH Pulse 74 08/23/2017 9:55 AM ELASTIC ATTACHER COVERSTITCH Temperature 36.8 C (98.2 F) 05/31/2016 9:55 AM CDT Respiratory Rate - - Oxygen Saturation 95% 05/31/2016 4:00 PM CDT Inhaled Oxygen - - Concentration Weight 57.7 kg (127 lb 3.2 oz) 08/23/2017 9:55 AM ELASTIC ATTACHER COVERSTITCH Height 165.1 cm (5' 5") 08/23/2017 9:55 AM ELASTIC ATTACHER COVERSTITCH Body Mass Index 21.17 08/23/2017 9:55 AM ELASTIC ATTACHER COVERSTITCH Plan of Treatment Health Maintenance Due Date Last Done Comments HEPATITIS C SCREENING 1945 PHYSICAL (COMPREHENSIVE) 1952 EXAM PERTUSSIS VACCINE 1956 TETANUS VACCINE 1962 FOOT EXAM 1963 HBA1C 1963 MICROALBUMIN 1963 BREAST CANCER SCREENING 1985 COLORECTAL CANCER 1995 SCREENING SHINGLES VACCINE 2005 OSTEOPOROSIS SCREENING 2010 PREVNAR/PNEUMOVAX (#1) 2010 INFLUENZA VACCINE 04/18/2017 DILATED EYE EXAM 08/09/2017 08/09/2016 Implants Implanted Type Area Feed Management Advisor Device Expiration Model / Identifier Date Serial / Lot Loop Recorder Results * ECG/QRS (08/23/2017 10:26 AM) Component Value Ref Range QRS DURATION 82 Specimen Performing Laboratory OTHER OUTSIDE LAB * DEVICE EVALUATION - ILR (08/23/2017 9:55 AM) Component Value Ref Range Device Implanted By Dr.Martin Knowles Generator Model # [id number] Generator Serial # [id number] Generator Implnat Date 04/13/16 Remote Monitor Serial# [id number] YEE/EOL Indicator per transmitter Generator Feed Management Advisor Medtronic Wireless Generator Yes Device Type ILR Device [place] [employer] Transmitter Compatible Permanent Comments r waves 0.28-0.34mV on date of implant ILR History of Afib no ILR Symptom Duration 4 7.5 mins each ILR Tachy Rate 158 ILR Tachy Duration 16 ILR Pause Duration 3 ILR Lev Rate 30 ILR Lev Duration 4 ILR AT Events Since Last NA Interrogation ILR AT Lifetime Events as N/A of EP Device Followed By MAC ILR AF Rate AF only ILR AF Duration episodes > 6 mins On Anticoagulation No Generator Location Left ILR Date of Last Daily 08/15/17 Connection ILR Symptom Events Since 9 Last Interrogation ILR Symptom Lifetime 25 Events as of ILR Tachy Events Since 0 Last Interrogation ILR Tachy Lifetime Events 0 as of ILR Pause Events Since 0 Last Interrogation ILR Pause Lifetime Events 0 as of ILR Lev Events Since 0 Last Interrogation ILR Lev Lifetime Events 0 as of ILR AF Events Since Last 0 Interrogation ILR AF Lifetime Events as 0 of ILR Percent Time in AT/AF 0 Events Since Last Interrogation ILR Percent Time in AT/AF 0 Lifetime of Events as of ILR Lifetime Events as of 08/23/17 Datetion Specimen Performing Laboratory OTHER OUTSIDE LAB Narrative In office LINQ check.Last remote connection 08/15/17. Pt reports transmitter is showing "?".She has tried unplugging, plugging back in. She is going to call [employer] to troubleshoot when she is home tomorrow. Episode #32 Symptom on 06/23/17, EGM shows NSR 60s with freq PVCs. This is last episode reported. Presenting rhythm, NSR 80s with freq PVCs. Report to Dr. Knowles in clinic. [08/23/2017 9:59:08 AM - BLAKE TEE] * DEVICE EVALUATION - REMOTE ILR (08/09/2017 11:11 AM) Only the most recent of 2 results within the time period is included. Component Value Ref Range Device Implanted By Dr.Martin Knowles Generator Model # [id number] Generator Serial # [id number] Generator Implnat Date 04/13/16 Remote Monitor Serial# [id number] YEE/EOL Indicator per transmitter Generator Feed Management Advisor Medtronic Wireless Generator Yes Device Type ILR Device [place] [employer] Transmitter Compatible Permanent Comments r waves 0.28-0.34mV on date of implant ILR History of Afib no ILR Symptom Duration 4 7.5 mins each ILR Tachy Rate 158 ILR Tachy Duration 16 ILR Pause Duration 3 ILR Lev Rate 30 ILR Lev Duration 4 ILR AT Events Since Last NA Interrogation ILR AT Lifetime Events as N/A of EP Device Followed By MAC ILR AF Rate AF only ILR AF Duration episodes > 6 mins On Anticoagulation No Generator Location Left ILR Current Monitoring 08/08/2017 to 09/07/2017 Period ILR Date of Last Daily 08/25/17 Connection ILR Battery Status OK ILR Symptom Events Since 0 Last Interrogation ILR Symptom Lifetime 25 Events [...] 0.0% Lifetime of Events as of ILR Presenting ECG Strip 08/06/2017 @ 00:04:50 shows SR in the 80's with ectopy/couplet PVCs ILR Lifetime Events as of 08/25/17 Datetion Specimen Performing Laboratory OTHER OUTSIDE LAB Narrative [08/30/2017 12:54:25 PM - YAKOV DYER] Presenting EGM: 08/25/17 @ 0828 SR 83 bpm with ectopy Full report received and reviewed. No new events to report, Will continue to monitor,Routed to Dr. Knowles for review/cosign. [08/09/2017 11:12:47 AM - ALEN VILLALOBOS] EP nurse was flagged to review and f/u if needed. Presenting rhythm: 08/06/2017 @ 00:04:50 shows SR in the 80's with ectopy/couplet PVCs Reviewed Summary Report. One symptom triggered event was rec'd #31 Symptom 06/23 @ 17:33 the 30 sec strip shows SR in the 60's-70's with couplets. Strip was scanned to review and I will route to Dr. Knowles in the EP lab at today for review and co-sign. from Last 3 Months
--- OUTSIDE RECORDS SUMMARY | 2017-10-04 18:36 | XMS REPORT | Encounter Summary ---
Author Author [facility] Organization [facility] Address Unknown Phone Unavailable Care Team Providers Care Microsoft Infrastructure Consultant Name Role Phone PCP Unavailable Reason for Visit * Reason Comments Medication Question questions on Cartia Encounter Details Date Type Department Care Team Description 09/20/2017 Telephone [facility] Cardiology Gina Frank RN Medication Question [address] (questions on Cartia ) [place] [address] Social History Tobacco Use Types Packs/Day Years [...] impairment: No 08/09/2016 as of this encounter Miscellaneous Notes * Telephone Encounter - Gina Frank, RN - 09/20/2017 11:50 AM WILLOW MACHINE OPERATOR 09/20/17 Pt has stopped Cartia but has since developed the flu and an URI. She is taking an antibiotic for 10 days. She feels really bad so it is difficult for her to assess her response to stopping the Carta. Per ov note dated 08/23/17 " We will stop her Diltiazem for 4-5 days and she will assess if her fatigue is resolved -- If she feels improved off of Diltiazem, she will restart and rechallenge Diltiazem by discontinuing for 4-5 days again and assess her response -- If she continues to have symptoms of fatigue off Diltiazem, she will stay off Diltiazem if her BP is in accord " Ms Piedra will stay off of Cartia for now until she recovers from the flu. She can retry Cartia when she is well to see how she does if she desires. It is also ok to stay off Cartia if her b/p is controlled. Pt verbalized understanding. No further needs identified at this time. ----- Message from Kaela Pichardo LPN sent at 09/20/2017 11:35 AM WILLOW MACHINE OPERATOR ----- Regarding: MPE- med question VM from patient on triage line. Said that when she was in on 08/23/17, MPShane told her that if she was doing fine, she could stop the Cartia XT and she did. She just wants to make sure she was right about that. Can call home # and leave answer on her secure VM. in this encounter Plan of Treatment Not on fileas of this encounter Visit Diagnoses Not on filein this encounter
--- OUTSIDE RECORDS SUMMARY | 2017-10-04 18:36 | XMS REPORT | Encounter Summary ---
Author Author [facility] Organization [facility] Address Unknown Phone Unavailable Care Team Providers Care It Network Engineer Name Role Phone PCP Unavailable Encounter Details Date Type Department Care Team Description 08/08/2017 [facility] Cardiology Temo Knowles MD Encounter Remote Device Check [address] [facility] [phone] [address] [place] [address] [phone] Social History Tobacco Use Types Packs/Day Years [...] by mouth tablet daily. Take with food. DOCOSAHEXANOIC ACID/EPA Take by mouth. (FISH OIL PO) FEXOFENADINE HCL (PAM Take by mouth [...] mouth as 08/23/2017 tablet Needed for Pain. OMEPRAZOLE PO Take by mouth. 08/23/2017 as of this encounter Plan of Treatment Not on fileas of this encounter Results * DEVICE EVALUATION - REMOTE ILR (08/09/2017 11:11 AM) Component Value Ref Range Device Implanted By Dr.Martin Knowles Generator Model # LNQ11 Generator Serial # [id number] Generator Implnat Date 04/13/16 Remote Monitor Serial# [id number] YEE/EOL Indicator per transmitter Generator Dev Ops Engineer [employer] Wireless Generator Yes Device Type ILR Device [place] [employer] Express Transmitter Compatible Permanent Comments r [...] lab at today for review and co-sign. in this encounter Visit Diagnoses Diagnosis Essential hypertension Unspecified essential hypertension Hypercholesteremia Pure hypercholesterolemia SVT (supraventricular tachycardia) (HCC) Other specified cardiac dysrhythmias AVNRT (AV marquita re-entry tachycardia) (HCC) Other specified cardiac dysrhythmias Tachycardia Tachycardia, unspecified in this encounter
--- OUTSIDE RECORDS SUMMARY | 2017-10-04 18:36 | XMS REPORT | Encounter Summary ---
Author Author [facility] Organization [facility] Address Unknown Phone Unavailable Care Team Providers Care Professional Skateboarder Name Role Phone PCP Unavailable Reason for Visit * Reason Comments Eye Problem PT is here for her 6 month FUV for PVD bilateral. Pt states that her vision has been a little weaker for her OS. Medications Only Pt is using AT's (B&L Soothe) at least 4-5 times a day OU. Encounter Details Date Type Department Care Team Description 08/07/2017 Office Visit [facility] Aileen Gallo, OD PVD ( posterior vitreous Physicians - [address] detachment), bilateral Ophthalmology [place] [address] (Primary Dx);Pseudophakia [address] [place] [address] of both eyes;Epiretinal 100 membrane (ERM) of left [place] eye;Ocular histoplasmosis [phone] Social History Tobacco Use Types Packs/Day Years Used Date Never Smoker Smokeless Tobacco: Never Used Alcohol Use Drinks/Week oz/Week Comments Yes Social Sex Assigned at Date Recorded Not on file as of this encounter Last Filed Vital Signs Vital Sign Reading Time Taken Blood Pressure - - Pulse - - Temperature - - Respiratory Rate - - Oxygen Saturation - - Inhaled Oxygen - - Concentration Weight 58.5 kg (129 lb) 08/07/2017 3:09 PM CANDY DEPOSITING MACHINE OPERATOR Height 162.6 cm (5' 4") 08/07/2017 3:09 PM CANDY DEPOSITING MACHINE OPERATOR Body Mass Index 22.14 08/07/2017 3:09 PM CANDY DEPOSITING MACHINE OPERATOR in this encounter Functional Status Functional Status [...] impairment: No 08/09/2016 as of this encounter Progress Notes * Aileen Gallo, OD - 08/07/2017 2:45 PM CANDY DEPOSITING MACHINE OPERATOR Body mass index is 22.14 kg/(m^2). Assessment and Plan: A/ 1. PVD OU -patient notes continued visual disturbance due to vitreous floater, continued complaints 2. Pseudophakia -patient's initial surgery done with multifocal IOL, patient unable to adapt then had second surgery for standard IOL in monovision -S/P endothelial pigment -History of YAG OS, PCO OD -patient apprehension to YAG OD 3. ERM OS -continued patient complaint of visual distortion OU 4. POHS OU P/ 1-2. Continue to monitor with examination in 6 months at next examination DFE and OCT of the macula. Discussed with patient ocular health causes for visual distortion/glare. Patient continues to have apprehension to YAG OD, does not want to pursue at this time. in this encounter Plan of Treatment Not on fileas of this encounter Visit Diagnoses Diagnosis PVD (posterior vitreous detachment), bilateral - Primary Pseudophakia of both eyes Lens replaced by other means Epiretinal membrane (ERM) of left eye Ocular histoplasmosis Unspecified Histoplasmosis retinitis in this encounter
--- OUTSIDE RECORDS SUMMARY | 2017-10-04 18:36 | XMS REPORT | Encounter Summary ---
Author Author [facility] Organization [facility] Address Unknown Phone Unavailable Care Team Providers Care Advertising Director Name Role Phone PCP Unavailable Encounter Details Date Type Department Care Team Description 08/23/2017 [facility] Cardiology Temo Knowles MD Encounter [id number] [facility] [address] [place] [address] [place] [address] [phone] Social History Tobacco Use Types Packs/Day Years [...] ACID/EPA Take by mouth. (FISH OIL PO) ESTRADIOL VA Insert or Apply 0.5 mg to vaginal area three times weekly. FEXOFENADINE HCL (PAM Take by mouth as Needed. PO) flecainide (TAMBOCOR) 50 Take 1 tablet by mouth 180 tablet 3 2016 mg tablet twice daily. LORazepam (ATIVAN) 0.5 mg Take 1 Tab by mouth every tablet 12 hours as needed. 2-3 Tablets taken daily; pt trying to take 2 tablets daily MULTIVITAMIN WITH Take by mouth daily. MINERALS (ONE-A-DAY 50 PLUS PO) naproxen-diphenhydramine Take 1 tablet by mouth at (ALEVE PM) 220-25 mg tab bedtime as needed. omeprazole DR(+) Take 20 mg by mouth daily (PRILOSEC) 20 mg capsule before breakfast. other [...] in an hour.). traMADol (ULTRAM) 50 mg Take 50 mg by mouth as tablet Needed for Pain. as of this encounter Plan of Treatment Not on fileas of this encounter Results * DEVICE EVALUATION - ILR (08/23/2017 9:55 AM) Component Value Ref Range Device Implanted By Dr.Martin Knowles Generator Model # LNQ11 Generator Serial # [id number] Generator Implnat Date 04/13/16 Remote Monitor Serial# [id number] YEE/EOL Indicator per transmitter Generator Die Stamper [employer] Wireless Generator Yes Device Type ILR Device [place] [employer] Express Transmitter Compatible Permanent Comments r [...] back in. She is going to call [employer] to troubleshoot when she is home tomorrow. Episode #32 Symptom on 06/23/17, EGM shows NSR 60s with freq PVCs. This is last episode reported. Presenting rhythm, NSR 80s with freq PVCs. Report to Dr. Knowles in clinic. [08/23/2017 9:59:08 AM - BLAKE TEE] in this encounter Visit Diagnoses Diagnosis PVC (premature ventricular contraction) Other premature beats Essential hypertension Unspecified essential hypertension in this encounter
--- OUTSIDE RECORDS SUMMARY | 2017-10-04 18:36 | XMS REPORT | Encounter Summary ---
Author Author [facility] Organization [facility] Address Unknown Phone Unavailable Care Team Providers Care Silk Screen Processor Name Role Phone PCP Unavailable Encounter Details Date Type Department Care Team Description 09/14/[address] [facility] Cardiology Magalie aWde, RN [address] [place] [address] Social History Tobacco Use Types [...] encounter Miscellaneous Notes * Telephone Encounter - Magalie Wade RN - 09/14/2017 10:33 AM ACCOUNT INFORMATION CLERK returned call - states she is driving to urgent care now. has had "influenza" the past 2 weeks. bronchial sounding cough repeatedly while on phone. asked her about the blurred vision from note below, she states it is related to her cataract surgery and had floaters across her eye since. reviewed quickly message from Janine yesterday regarding remote monitoring. she will try to connect when she returns later this afternoon and call if problems * Telephone Encounter - Magalie Wade RN - 09/14/2017 10:33 AM ACCOUNT INFORMATION CLERK ----- Message from Kaela Pichardo LPN sent at 09/14/2017 8:39 AM ACCOUNT INFORMATION CLERK ----- Regarding: MPE- RTC for Magalie MANDIE from patient on triage line returning our call. Said that she had blurred vision before she started the medication but she is coughing. Said to call home or cell # [phone]. in this encounter Plan of Treatment Not on fileas of this encounter Visit Diagnoses Not on filein this encounter
--- OUTSIDE RECORDS SUMMARY | 2017-10-04 18:36 | XMS REPORT | Encounter Summary ---
Author Author [facility] Organization [facility] Address Unknown Phone Unavailable Care Team Providers Care Hat Blocker Name Role Phone PCP Unavailable Encounter Details Date Type Department Care Team Description 09/12/2017 [facility] Cardiology Temo Knowles MD Encounter Remote Device Check [address] [facility] [phone] [address] [place] [address] [phone] Social History Tobacco Use Types Packs/Day Years [...] as of this encounter Plan of Treatment Name Priority Associated Diagnoses Date/Time DEVICE EVALUATION - REMOTE ILR Routine Essential hypertension 2016 4:05 PM PHILOSOPHY LECTURER Hypercholesteremia SVT (supraventricular tachycardia) (HCC) AVNRT (AV marquita re-entry tachycardia) (HCC) Tachycardia as of this encounter Visit Diagnoses Diagnosis Essential hypertension Unspecified essential hypertension Hypercholesteremia Pure hypercholesterolemia SVT (supraventricular tachycardia) (HCC) Other specified cardiac dysrhythmias AVNRT (AV marquita re-entry tachycardia) (HCC) Other specified cardiac dysrhythmias Tachycardia Tachycardia, unspecified in this encounter
--- OUTSIDE RECORDS SUMMARY | 2017-10-04 18:37 | XMS REPORT | Continuity of Care Document ---
Author Author [facility] Organization [facility] Address Unknown Phone Unavailable Allergies Active Description Code Type Severity Reaction Onset Reported/Identified Relationship to Patient Clinical Status Yes CEPHALEXIN,PCN CEPHALEXIN,PCN Unknown N/A 04/02/2015 Medications There is no data. Problems Date Dx Coded Attending Type Code Diagnosis Diagnosed By 07/07/2010 Ot V18.51 07/07/2010 Ot V76.51 01/25/2012 Ot 785.0 TACHYCARDIA NOS 10/02/2014 Ot 780.93 10/02/2014 Ot 780.93 10/02/2014 Ot V81.5 10/02/2014 Ot 272.0 10/02/2014 Ot 704.00 10/02/2014 Ot V07.4 10/02/2014 Ot 785.0 10/02/2014 Ot 785.0 10/02/2014 Ot 724.6 10/02/2014 JANEEN GRAY, DEONDRE R Ot 789.01 10/02/2014 JANEEN GRAY, DEONDRE R Ot 789.01 10/02/2014 JANEEN GRAY, DEONDRE R Ot 719.07 10/02/2014 JANEEN GRAY, DEONDRE R Ot 719.47 10/02/2014 JANEEN GRAY, DEONDRE R Ot 722.52 10/02/2014 JANEEN GRAY, DEONDRE R Ot 729.5 10/02/2014 JANEEN RGAY, DEONDRE R Ot 733.99 10/02/2014 JANEEN GRAY, DEONDRE R Ot 735.0 10/02/2014 JANEEN GRAY, DEONDRE R Ot 782.3 10/02/2014 JANEEN GRAY, DEONDRE R Ot 793.7 10/10/2014 YEE OSNUA MD Ot 721.3 LUMBOSACRAL SPONDYLOSIS 10/10/2014 YEE OSUNA MD Ot 722.52 LUMB/LUMBOSAC DISC DEGEN 10/10/2014 YEE OSUNA MD Ot V58.69 OTH MED,LT,CURRENT USE 10/27/2014 DORENE COX MD Ot 443.9 10/27/2014 DORENE COX MD Ot 723.0 10/29/2014 DORENE COX MD Ot 443.9 10/29/2014 DORENE COX MD Ot 723.0 11/28/2014 Ot 721.3 LUMBOSACRAL SPONDYLOSIS 11/28/2014 Ot 722.52 LUMB/ LUMBOSAC DISC DEGEN 11/28/2014 Ot V58.69 OTH MED,LT, CURRENT USE 12/17/2014 Ot 272.0 12/17/2014 Ot 704.00 12/17/2014 Ot V07.4 12/17/2014 Ot 785.0 12/17/2014 Ot 785.0 12/17/2014 Ot 724.6 12/17/2014 JANEEN GRAY, DEONDRE R Ot 789.01 12/17/2014 JANEEN GRAY, DEONDRE R Ot 789.01 12/17/2014 JANEEN GRAY, DEONDRE R Ot 719.07 12/17/2014 JANEEN GRAY, DEONDRE R Ot 719.47 12/17/2014 JANEEN GRAY, DEONDRE R Ot 722.52 12/17/2014 JANEEN GRAY, DEONDRE R Ot 729.5 12/17/2014 JANEEN GRAY, DEONDRE R Ot 733.99 12/17/2014 JANEEN GRAY, DEONDRE R Ot 735.0 12/17/2014 JANEEN GRAY, DEONDRE R Ot 782.3 12/17/2014 JANEEN GRAY, DEONDRE R Ot 793.7 12/17/2014 DORENE COX MD Ot 443.9 12/17/2014 DORENE COX MD Ot 723.0 12/18/2014 DORENE COX MD Ot 722.52 12/18/2014 DORENE COX MD Ot V57.1 01/02/2015 DORENE COX MD Ot 722.52 01/02/2015 DORENE COX MD Ot V57.1 01/22/2015 DORENE COX MD Ot 722.52 LUMB/LUMBOSAC DISC DEGEN 01/22/2015 DORENE COX MD Ot V57.1 PHYSICAL THERAPY NEC 02/06/2015 YEE OSUNA MD Ot 721.3 LUMBOSACRAL SPONDYLOSIS 02/06/2015 YEE OSUNA MD Ot V58.69 OT MED,LT,CURRENT USE 03/12/2015 YEE OSUNA MD Ot 721.3 03/12/2015 YEE OSUNA MD Ot V58.69 03/13/2015 YEE OSUNA MD Ot 721.3 03/13/2015 YEE OSUNA MD Ot V58.69 04/02/2015 Ot 785.0 04/02/2015 Ot 785.0 04/23/2015 NWAGWU, ISIDORE O [employer] IN [employer] NANNY Ot 785.0 04/23/2015 NWAGWU, ISIDORE O [employer] IN [employer] NANNY Ot 786.09 04/30/2015 NWAGWU, ISIDORE O [employer] IN [employer] NANNY Ot 785.0 04/30/2015 NWAGWU, ISIDORE O [employer] IN [employer] NANNY Ot 786.09 05/11/2015 NWAGWU, ISIDORE O [employer] IN [employer] NANNY Ot 785.0 05/11/2015 NWAGWU, ISIDORE O [employer] IN [employer] NANNY Ot 786.09 05/15/2015 NWAGWU, ISIDORE O [employer] IN [employer] NANNY Ot 785.0 05/15/2015 NWAGWU, ISIDORE O [employer] IN [employer] NANNY Ot 786.09 08/07/2015 YEE OSUNA MD Ot M47.816 SPONDYLOSIS W/O MYELOPATHY OR RADICULOPA 01/22/2016 Ot 272.0 PURE HYPERCHOLESTEROLEM 01/22/2016 Ot 704.00 ALOPECIA NOS 01/22/2016 Ot V07.4 HORMONE REPLACEMENT THERAPY (POSTMENOPAU 01/22/2016 Ot 785.0 TACHYCARDIA NOS 01/22/2016 Ot 785.0 TACHYCARDIA NOS 01/22/2016 Ot 724.6 DISORDERS OF SACRUM 01/22/2016 JANEEN GRAY, DEONDRE Dunn Ot 789.01 ABDOMINAL PAIN, RIGHT UPPER QUADRANT 01/22/2016 DEONDRE VERNON MD Ot 789.01 ABDOMINAL PAIN, RIGHT UPPER QUADRANT 01/22/2016 DEONDRE VERNON MD Ot 719.07 JOINT EFFUSION-ANKLE 01/22/2016 DEONDRE VERNON MD Ot 719.47 JOINT PAIN-ANKLE 01/22/2016 DEONDRE VERNON MD Ot 722.52 LUMB/LUMBOSAC DISC DEGEN 01/22/2016 DEONDRE VERNON MD Ot 729.5 PAIN IN LIMB 01/22/2016 DEONDRE VERNON MD Ot 733.99 BONE CARTILAGE DIS NEC 01/22/2016 DEONDRE VERNON MD Ot 735.0 HALLUX VALGUS 01/22/2016 DEONDRE VERNON MD Ot 782.3 EDEMA 01/22/2016 DEONDRE VERNON MD Ot 793.7 NOSP (ABN) FINDINGS ON RADIOLOGICAL OT 01/22/2016 KENNY GRAY, DORENE Lyn Ot 443.9 PERIPH VASCULAR DIS NOS 01/22/2016 DORENE COX MD Ot 723.0 CERVICAL SPINAL STENOSIS 01/22/2016 THAO GRAY, YEE Lyn Ot 721.3 LUMBOSACRAL SPONDYLOSIS 01/22/2016 THAO GRAY, YEE Lyn Ot V58.69 OTH MED,LT,CURRENT USE 01/22/2016 NWAGWU, ISIDORE O [employer] IN HOU[employer] NANNY Ot 785.0 TACHYCARDIA NOS 01/22/2016 NWAGWU, ISIDORE O [employer] IN [employer] NANNY Ot 786.09 RESPIRATORY ABNORM NEC 01/22/2016 NWAGWU, ISIDORE O [employer] IN [employer] NANNY Ot 785.0 TACHYCARDIA NOS 01/22/2016 NWAGWU, ISIDORE O [employer] IN [employer] NANNY Ot 786.09 RESPIRATORY ABNORM NEC 01/22/2016 Ot 272.0 PURE HYPERCHOLESTEROLEM 01/22/2016 Ot 704.00 ALOPECIA NOS 01/22/2016 Ot V07.4 HORMONE REPLACEMENT THERAPY (POSTMENOPAU 01/22/2016 Ot 785.0 TACHYCARDIA NOS 01/22/2016 Ot 785.0 TACHYCARDIA NOS 01/22/2016 Ot 724.6 DISORDERS OF SACRUM 01/22/2016 DEONDRE VERNON MD Ot 789.01 ABDOMINAL PAIN, RIGHT UPPER QUADRANT 01/22/2016 DEONDRE VERNON MD Ot 789.01 ABDOMINAL PAIN, RIGHT UPPER QUADRANT 01/22/2016 DEONDRE VERNON MD Ot 719.07 JOINT EFFUSION-ANKLE 01/22/2016 DEONDRE VERNON MD Ot 719.47 JOINT PAIN-ANKLE 01/22/2016 DEONDRE VERNON MD Ot 722.52 LUMB/LUMBOSAC DISC DEGEN 01/22/2016 DEONDRE VERNON MD Ot 729.5 PAIN IN LIMB 01/22/2016 DEONDRE VERNON MD Ot 733.99 BONE CARTILAGE DIS NEC 01/22/2016 DEONDRE VERNON MD Ot 735.0 HALLUX VALGUS 01/22/2016 DEONDRE VERNON MD Ot 782.3 EDEMA 01/22/2016 DEONDRE VERNON MD Ot 793.7 NOSP (ABN) FINDINGS ON RADIOLOGICAL OT 01/22/2016 DORENE COX MD Ot 443.9 PERIPH VASCULAR DIS NOS 01/22/2016 DORENE COX MD Ot 723.0 CERVICAL SPINAL STENOSIS 01/22/2016 YEE OSUNA MD Ot 721.3 LUMBOSACRAL SPONDYLOSIS 01/22/2016 YEE OSUNA MD Ot V58.69 OTH MED,LT,CURRENT USE 01/22/2016 NWAGWU, ISIDORE O [employer] IN [employer] NANNY Ot 785.0 TACHYCARDIA NOS 01/22/2016 NWAGWU, ISIDORE O [employer] IN [employer] NANNY Ot 786.09 RESPIRATORY ABNORM NEC 01/22/2016 NWAGWU, ISIDORE O [employer] IN [employer] NANNY Ot 785.0 TACHYCARDIA NOS 01/22/2016 NWAGWU, ISIDORE O [employer] IN [employer] NANNY Ot 786.09 RESPIRATORY ABNORM NEC 01/22/2016 YEE OSUNA MD Ot M47.816 SPONDYLOSIS W/O MYELOPATHY OR RADICULOPA 01/22/2016 YEE OSUNA MD Ot M51.16 INTERVERTEBRAL DISC DISORDERS W RADICULO 01/22/2016 YEE OSUNA MD Ot Z79.899 OTHER MCC (CURRENT) DRUG THERAPY 01/23/2016 Ot 272.0 PURE HYPERCHOLESTEROLEM 01/23/2016 Ot 704.00 ALOPECIA NOS 01/23/2016 Ot V07.4 HORMONE REPLACEMENT THERAPY (POSTMENOPAU 01/23/2016 Ot 785.0 TACHYCARDIA NOS 01/23/2016 Ot 785.0 TACHYCARDIA NOS 01/23/2016 Ot 724.6 DISORDERS OF SACRUM 01/23/2016 DEONDRE VERNON MD Ot 789.01 ABDOMINAL PAIN, RIGHT UPPER QUADRANT 01/23/2016 DEONDRE VERNON MD R Ot 789.01 ABDOMINAL PAIN, RIGHT UPPER QUADRANT 01/23/2016 DEONDRE VERNON MD Ot 719.07 JOINT EFFUSION-ANKLE 01/23/2016 DEONDRE VERNON MD Ot 719.47 JOINT PAIN-ANKLE 01/23/2016 DEONDRE VERNON MD Ot 722.52 LUMB/LUMBOSAC DISC DEGEN 01/23/2016 DEONDRE VERNON MD Ot 729.5 PAIN IN LIMB 01/23/2016 DEONDRE VERNON MD Ot 733.99 BONE CARTILAGE DIS NEC 01/23/2016 DEONDRE VERNON MD Ot 735.0 HALLUX VALGUS 01/23/2016 DEONDRE VERNON MD Ot 782.3 EDEMA 01/23/2016 DEONDRE VERNON MD Ot 793.7 NOSP (ABN) FINDINGS ON RADIOLOGICAL OT 01/23/2016 KENNY GRAY, DORENE Lyn Ot 443.9 PERIPH VASCULAR DIS NOS 01/23/2016 DORENE COX MD Ot 723.0 CERVICAL SPINAL STENOSIS 01/23/2016 THAO GRAY, YEE Lyn Ot 721.3 LUMBOSACRAL SPONDYLOSIS 01/23/2016 THAO GRAY, YEE Lyn Ot V58.69 OT MED,LT,CURRENT USE 01/23/2016 NWAGWU, ISIDORE O [employer] IN [employer] NANNY Ot 785.0 TACHYCARDIA NOS 01/23/2016 NWAGWU, ISIDORE O [employer] IN [employer] NANNY Ot 786.09 RESPIRATORY ABNORM NEC 01/23/2016 NWAGWU, ISIDORE O [employer] IN [employer] NANNY Ot 785.0 TACHYCARDIA NOS 01/23/2016 NWAGWU, ISIDORE O [employer] IN [employer] NANNY Ot 786.09 RESPIRATORY ABNORM NEC 01/24/2016 DEONDRE VERNON MD Ot E78.0 PURE HYPERCHOLESTEROLEMIA 01/24/2016 DEONDRE VERNON MD Ot E86.0 DEHYDRATION 01/24/2016 DEONDRE VERNON MD Ot I47.1 SUPRAVENTRICULAR TACHYCARDIA 01/24/2016 DEONDRE VERNON MD Ot R00.2 PALPITATIONS 01/24/2016 DEONDRE VERNON MD Ot R07.89 OTHER CHEST PAIN 01/24/2016 DEONDRE VERNON MD Ot R73.01 IMPAIRED FASTING GLUCOSE 01/24/2016 DEONDRE VERNON MD Ot R73.09 OTHER ABNORMAL GLUCOSE 01/24/2016 DEONDRE VERNON MD Ot Z82.49 FAMILY HX OF ISCHEM HEART DIS AND OTH DI 02/01/2016 YEE OSUNA MD Ot M47.816 SPONDYLOSIS W/O MYELOPATHY OR RADICULOPA 02/01/2016 YEE OSUNA MD Ot M51.16 INTERVERTEBRAL DISC DISORDERS W RADICULO 02/01/2016 YEE OSUNA MD Ot Z79.899 OTHER [employer]LECT[employer] SPECIALIST (CURRENT) DRUG THERAPY 02/18/2016 Ot 272.0 PURE HYPERCHOLESTEROLEM 02/18/2016 Ot 704.00 ALOPECIA NOS 02/18/2016 Ot V07.4 HORMONE REPLACEMENT THERAPY (POSTMENOPAU 02/18/2016 Ot 785.0 TACHYCARDIA NOS 02/18/2016 Ot 785.0 TACHYCARDIA NOS 02/18/2016 Ot 724.6 DISORDERS OF SACRUM 02/18/2016 DEONDRE VERNON MD Ot 789.01 ABDOMINAL PAIN, RIGHT UPPER QUADRANT 02/18/2016 DEONDRE VERNON MD Ot 789.01 ABDOMINAL PAIN, RIGHT UPPER QUADRANT 02/18/2016 DEONDRE VERNON MD Ot 719.07 JOINT EFFUSION-ANKLE 02/18/2016 DEONDRE VERNON MD Ot 719.47 JOINT PAIN-ANKLE 02/18/2016 DEONDRE VERNON MD Ot 722.52 LUMB/LUMBOSAC DISC DEGEN 02/18/2016 DEONDRE VERNON MD Ot 729.5 PAIN IN LIMB 02/18/2016 DEONDRE VERNON MD Ot 733.99 BONE CARTILAGE DIS NEC 02/18/2016 DEONDRE VERNON MD Ot 735.0 HALLUX VALGUS 02/18/2016 DEONDRE VERNON MD Ot 782.3 EDEMA 02/18/2016 DEONDRE VERNON MD Ot 793.7 NOSP (ABN) FINDINGS ON RADIOLOGICAL OT 02/18/2016 DORENE COX MD Ot 443.9 PERIPH VASCULAR DIS NOS 02/18/2016 DORENE COX MD Ot 723.0 CERVICAL SPINAL STENOSIS 02/18/2016 YEE OSUNA MD Ot 721.3 LUMBOSACRAL SPONDYLOSIS 02/18/2016 YEE OSUNA MD Ot V58.69 OTH MED,LT,CURRENT USE 02/18/2016 NWAGWU, ISIDORE O [employer] IN [employer] NANNY Ot 785.0 TACHYCARDIA NOS 02/18/2016 NWAGWU, ISIDORE O [employer] IN [employer]PER NANNY Ot 786.09 RESPIRATORY ABNORM NEC 02/18/2016 NWAGWU, ISIDORE O [employer] IN [employer] NANNY Ot 785.0 TACHYCARDIA NOS 02/18/2016 NWAGWU, ISIDORE O L[employer] IN HOU[employer] NANNY Ot 786.09 RESPIRATORY ABNORM NEC 02/18/2016 Ot 272.0 PURE HYPERCHOLESTEROLEM 02/18/2016 Ot 704.00 ALOPECIA NOS 02/18/2016 Ot V07.4 HORMONE REPLACEMENT THERAPY (POSTMENOPAU 02/18/2016 Ot 785.0 TACHYCARDIA NOS 02/18/2016 Ot 785.0 TACHYCARDIA NOS 02/18/2016 Ot 724.6 DISORDERS OF SACRUM 02/18/2016 JANEEN GRAY, DEONDRE Dunn Ot 789.01 ABDOMINAL PAIN, RIGHT UPPER QUADRANT 02/18/2016 JANEEN GRAY, DEONDRE R Ot 789.01 ABDOMINAL PAIN, RIGHT UPPER QUADRANT 02/18/2016 JANEEN GRAY, DEONDRE R Ot 719.07 JOINT EFFUSION-ANKLE 02/18/2016 DEONDRE VERNON MD Ot 719.47 JOINT PAIN-ANKLE 02/18/2016 JANEEN GRAY, DEONDRE R Ot 722.52 LUMB/LUMBOSAC DISC DEGEN 02/18/2016 DEONDRE VERNON MD R Ot 729.5 PAIN IN LIMB 02/18/2016 JANEEN GRAY, DEONDRE R Ot 733.99 BONE CARTILAGE DIS NEC 02/18/2016 DEONDRE VERNON MD R Ot 735.0 HALLUX VALGUS 02/18/2016 DEONDRE VERNON MD R Ot 782.3 EDEMA 02/18/2016 DEONDRE VERNON MD Ot 793.7 NOSP (ABN) FINDINGS ON RADIOLOGICAL OT 02/18/2016 DORENE COX MD Ot 443.9 PERIPH VASCULAR DIS NOS 02/18/2016 DORENE COX MD Ot 723.0 CERVICAL SPINAL STENOSIS 02/18/2016 YEE OSUNA MD Ot 721.3 LUMBOSACRAL SPONDYLOSIS 02/18/2016 YEE OSUNA MD Ot V58.69 OT MED,LT,CURRENT USE 02/18/2016 NWAGWU, MIGUELRE O L[employer] IN HOU[employer]KEEPER NANNY Ot 785.0 TACHYCARDIA NOS 02/18/2016 NWAGWU, JERMAINDORE O [employer] IN HOU[employer]PER NANNY Ot 786.09 RESPIRATORY ABNORM NEC 02/18/2016 NWAGWU, JERMAINDORE O L[employer] IN HOU[employer]KEEPER NANNY Ot 785.0 TACHYCARDIA NOS 02/18/2016 NWAGWU, JERMAINDORE O LIVE IN HOUSEKEEPER NANNY Ot 786.09 RESPIRATORY ABNORM NEC 02/19/2016 FARHAD GRAY FACC, ALI FACP CCDS Ot R00.2 PALPITATIONS 02/19/2016 FARHAD GRAY FACC, ALI FACP CCDS Ot R00.2 PALPITATIONS 04/07/2016 FARHAD GRAY FACC, ALI FACP CCDS Ot R00.2 PALPITATIONS 04/14/2016 FARHAD GRAY FAC, ALI FACP CCDS Ot R00.2 PALPITATIONS 04/28/2016 JAMAR KOENIG DO Ot R06.02 SHORTNESS OF BREATH 05/16/2016 JAMAR KOENIG DO Ot R06.02 SHORTNESS OF BREATH 05/18/2016 FARHAD GRAY FACC, ALI FACP CCDS Ot R00.2 PALPITATIONS 05/20/2016 YEE OSUNA MD Ot M47.816 SPONDYLOSIS W/O MYELOPATHY OR RADICULOPA 05/20/2016 YEE OSUNA MD Ot M51.16 INTERVERTEBRAL DISC DISORDERS W RADICULO 06/02/2016 YEE OSUNA MD Ot M47.816 SPONDYLOSIS W/O MYELOPATHY OR RADICULOPA 06/02/2016 YEE OSUNA MD Ot M51.16 INTERVERTEBRAL DISC DISORDERS W RADICULO 07/11/2016 Ot 272.0 PURE HYPERCHOLESTEROLEM 07/11/2016 Ot 704.00 ALOPECIA NOS 07/11/2016 Ot V07.4 HORMONE REPLACEMENT THERAPY (POSTMENOPAU 07/11/2016 Ot 785.0 TACHYCARDIA NOS 07/11/2016 Ot 785.0 TACHYCARDIA NOS 07/11/2016 Ot 724.6 DISORDERS OF SACRUM 07/11/2016 DEONDRE VERNON MD Ot 789.01 ABDOMINAL PAIN, RIGHT UPPER QUADRANT 07/11/2016 DEONDRE VERNON MD Ot 789.01 ABDOMINAL PAIN, RIGHT UPPER QUADRANT 07/11/2016 JANEEN GRAY, DEONDRE R Ot 719.07 JOINT EFFUSION-ANKLE 07/11/2016 JANEEN GRAY, DEONDRE R Ot 719.47 JOINT PAIN-ANKLE 07/11/2016 JANEEN GRAY, DEONDRE R Ot 722.52 LUMB/LUMBOSAC DISC DEGEN 07/11/2016 JANEEN GRAY, DEONDRE R Ot 729.5 PAIN IN LIMB 07/11/2016 JANEEN GRAY, DEONDRE R Ot 733.99 BONE CARTILAGE DIS NEC 07/11/2016 JANEEN GRAY, DEONDRE R Ot 735.0 HALLUX VALGUS 07/11/2016 JANEEN GRAY, DEONDRE R Ot 782.3 EDEMA 07/11/2016 JANEEN GRAY, DEONDRE R Ot 793.7 NOSP (ABN) FINDINGS ON RADIOLOGICAL OT 07/11/2016 KENNY GRAY, DORENE Lyn Ot 443.9 PERIPH VASCULAR DIS NOS 07/11/2016 DORENE COX MD Ot 723.0 CERVICAL SPINAL STENOSIS 07/11/2016 YEE OSUNA MD Ot 721.3 LUMBOSACRAL SPONDYLOSIS 07/11/2016 YEE OSUNA MD Ot V58.69 OTH MED,LT,CURRENT USE 07/11/2016 NWAGWU, ISIDORE O [employer] IN HOU[employer] NANNY Ot 785.0 TACHYCARDIA NOS 07/11/2016 NWAGWU, ISIDORE O [employer] IN HOU[employer] NANNY Ot 786.09 RESPIRATORY ABNORM NEC 07/11/2016 NWAGWU, ISIDORE O [employer] IN [employer] NANNY Ot 785.0 TACHYCARDIA NOS 07/11/2016 NWAGWU, ISIDORE O [employer] IN [employer]PER NANNY Ot 786.09 RESPIRATORY ABNORM NEC 07/11/2016 JAMAR KOENIG DO Ot R06.02 SHORTNESS OF BREATH 07/11/2016 FARHAD GRAY FACC, ALI FACP CCDS Ot R00.2 PALPITATIONS 07/12/2016 ELSA ANTHONY MD Ot I49.3 VENTRICULAR PREMATURE DEPOLARIZATION 07/12/2016 ELSA ANTHONY MD Ot R00.2 PALPITATIONS 07/12/2016 ELSA ANTHONY MD Ot R42 DIZZINESS AND GIDDINESS 07/13/2016 ELSA ANTHONY MD Ot I49.3 VENTRICULAR PREMATURE DEPOLARIZATION 07/13/2016 ELSA ANTHONY MD Ot R00.2 PALPITATIONS 07/13/2016 GABRIELLE GRAY, ELSA P Ot R42 DIZZINESS AND GIDDINESS 07/26/2016 JANEEN GRAY, DEONDRE R Ot R10.13 EPIGASTRIC PAIN 08/09/2016 GABRIELLE GRAY, ELSA P Ot I49.3 VENTRICULAR PREMATURE DEPOLARIZATION 08/09/2016 GABRIELLE GRAY, ELSA P Ot R00.2 PALPITATIONS 08/09/2016 GABRIELLE GRAY, ELSA P Ot R42 DIZZINESS AND GIDDINESS 08/16/2016 JANEEN GRAY, DEONDRE R Ot R10.13 EPIGASTRIC PAIN 08/17/2016 GABRIELLE GRAY, ELSA P Ot I49.3 VENTRICULAR PREMATURE DEPOLARIZATION 08/17/2016 GABRIELLE GRAY, ELSA P Ot R00.2 PALPITATIONS 08/17/2016 GABRIELLE GRAY, ELSA P Ot R42 DIZZINESS AND GIDDINESS 08/17/2016 JANEEN GRAY, DEONDRE R Ot R10.13 EPIGASTRIC PAIN 10/09/2016 GABRIELLE GRAY, ELSA P Ot I49.3 VENTRICULAR PREMATURE DEPOLARIZATION 10/09/2016 GABRIELLE GRAY, ELSA P Ot R00.2 PALPITATIONS 10/09/2016 GABRIELLE GRAY, ELSA P Ot R42 DIZZINESS AND GIDDINESS 10/15/2016 GABRIELLE GRAY, ELSA P Ot I49.3 VENTRICULAR PREMATURE DEPOLARIZATION 10/15/2016 GABRIELLE GRAY, ELSA P Ot R00.2 PALPITATIONS 10/15/2016 GABRIELLE GRAY, ELSA P Ot R42 DIZZINESS AND GIDDINESS 01/23/2017 Ot 785.0 TACHYCARDIA NOS 01/23/2017 Ot 785.0 TACHYCARDIA NOS 01/23/2017 Ot 724.6 DISORDERS OF SACRUM 01/23/2017 JANEEN GRAY, DEONDRE R Ot 789.01 ABDOMINAL PAIN, RIGHT UPPER QUADRANT 01/23/2017 DEONDRE VERNON MD R Ot 789.01 ABDOMINAL PAIN, RIGHT UPPER QUADRANT 01/23/2017 JANEEN GRAY, DEONDRE R Ot 719.07 JOINT EFFUSION-ANKLE 01/23/2017 JANEEN GRAY, DEONDRE R Ot 719.47 JOINT PAIN-ANKLE 01/23/2017 JANEEN GRAY, DEONDRE R Ot 722.52 LUMB/LUMBOSAC DISC DEGEN 01/23/2017 JANEEN GRAY, DEONDRE R Ot 729.5 PAIN IN LIMB 01/23/2017 JANEEN GRAY, DEONDRE R Ot 733.99 BONE CARTILAGE DIS NEC 01/23/2017 DEONDRE VERNON MD R Ot 735.0 HALLUX VALGUS 01/23/2017 DEONDRE VERNON MD Ot 782.3 EDEMA 01/23/2017 DEONDRE VERNON MD Ot 793.7 NOSP (ABN) FINDINGS ON RADIOLOGICAL OT 01/23/2017 DORENE COX MD Ot 443.9 PERIPH VASCULAR DIS NOS 01/23/2017 DORENE COX MD Ot 723.0 CERVICAL SPINAL STENOSIS 01/23/2017 YEE OSUNA MD Ot 721.3 LUMBOSACRAL SPONDYLOSIS 01/23/2017 YEE OSUNA MD Ot V58.69 OTH MED,LT,CURRENT USE 01/23/2017 NWAGWU, ISIDORE O LIVE IN HOU[employer]KEEPER NANNY Ot 785.0 TACHYCARDIA NOS 01/23/2017 NWAGWU, ISIDORE O L[employer] IN HOUSEKEEPER NANNY Ot 786.09 RESPIRATORY ABNORM NEC 01/23/2017 NWAGWU, ISIDORE O L[employer] IN HOU[employer]KEEPER NANNY Ot 785.0 TACHYCARDIA NOS 01/23/2017 NWAGWU, ISIDORE O L[employer] IN HOUSEKEEPER NANNY Ot 786.09 RESPIRATORY ABNORM NEC 01/23/2017 JAMAR KOENIG DO M Ot R06.02 SHORTNESS OF BREATH 01/23/2017 FARHAD GRAY FACC, JACKIE FACP CCDS Ot R00.2 PALPITATIONS 01/23/2017 DEONDRE VERNON MD Ot R10.13 EPIGASTRIC PAIN 01/23/2017 ELSA ANTHONY MD Ot I49.3 VENTRICULAR PREMATURE DEPOLARIZATION 01/23/2017 ELSA ANTHONY MD Ot R00.2 PALPITATIONS 01/23/2017 ELSA ANTHONY MD Ot R42 DIZZINESS AND GIDDINESS 01/23/2017 STAN GAMBOA MD Ot G47.33 OBSTRUCTIVE SLEEP APNEA (ADULT) (PEDIATR 01/23/2017 STAN GAMBOA MD, Ot G47.33 OBSTRUCTIVE SLEEP APNEA (ADULT) (PEDIATR 01/26/2017 STAN GAMBOA MD, Ot G47.33 OBSTRUCTIVE SLEEP APNEA (ADULT) (PEDIATR Procedures There is no data. Results There is no data. Encounters ACCT No. Visit Date/Time Discharge Status Pt. Type Provider Facility Loc./Unit Complaint [id number] 01/25/2017 20:00:00 01/26/2017 06:45:00 DIS Outpatient STAN GAMBOA MD [facility] SLEEP JULIO,ARRHYTHMIAS [id number] 10/10/2016 14:00:00 10/10/2016 23:59:59 CLS Preadmit ELSA ANTHONY MD [facility] CARD PVC,PALPITATIONS, DIZZINESS [id number] 07/11/2016 10:33:00 10/09/2016 00:01:00 DIS Outpatient ELSA ANTHONY MD [facility] CARD PVC,PALPITATIONS, DIZZINESS [id number] 07/25/2016 13:19:00 07/25/2016 23:59:59 CLS Outpatient JANEEN GRAY, DEONDRE Dunn [facility] RAD UPPER ABD PAIN [id number] 05/20/2016 10:36:00 05/20/2016 11:51:00 DIS Outpatient YEE OSUNA MD [facility] 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 [id number] 05/19/2016 09:00:00 05/19/2016 23:59:59 CLS Preadmit FARHAD GRAY FACC, JACKIE ESTEBAN CCDS [facility] CARD PALPITATIONS [id number] 02/18/2016 09:30:00 05/18/2016 00:01:00 DIS Outpatient JACKIE LLAMAS MD, FACC, FACP CCDS [facility] CARD PALPITATIONS [id number] 03/23/2016 12:51:00 03/23/2016 23:59:59 CLS Outpatient JAMAR KOENIG DO [facility] RT SOB [id number] 01/23/2016 03:40:00 01/24/2016 12:40:00 DIS Inpatient DEONDRE VERNON MD [facility] ICU PSVT [id number] 01/22/2016 09:31:00 01/22/2016 11:17:00 DIS Outpatient YEE OSUNA MD [facility] CARD SPONDYLOSIS [id number] 08/07/2015 09:51:00 08/07/2015 11:17:00 DIS Outpatient YEE OSUNA MD [facility] 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 [id number] 04/06/2015 13:37:00 04/06/2015 23:59:59 CLS Outpatient NWAGWU JERMAINDORE O L[employer] IN [employer] [facility] CARD TACHYCARDIA DYSPNEA WITH EXERTION [id number] 04/02/2015 11:35:00 04/02/2015 23:59:59 CLS Outpatient NWAGWU ISIDORE O [employer] [facility] CARD TACHYCARDIA DYPNEA WITH EXERTION [id number] 02/06/2015 07:54:00 02/06/2015 09:04:00 DIS Outpatient YEE OSUNA MD [facility] CARD LUMBAR SPONODOLYOSIS [id number] 01/30/2015 09:58:00 01/30/2015 23:59:59 CLS Outpatient YEE OSUNA MD [facility] CARD LUMBAR SPONDOLOYSIS [id number] 01/22/2015 15:44:00 01/22/2015 17:00:00 DIS Outpatient DORENE COX MD [facility] REHAB LUMBAR DDD [id number] 10/10/2014 07:29:00 10/10/2014 08:49:00 DIS Outpatient YEE OSUNA MD [facility] CARD DDD [id number] 10/02/2014 12:07:00 10/02/2014 23:59:59 CLS Outpatient DORENE COX MD [facility] RAD GAIT DISTURBANCE HYPERFLEXIA PVD [id number] 12/03/2013 08:18:00 12/03/2013 23:59:59 CLS Outpatient DEONDRE VERNON MD [facility] RAD L-5, L-4 RADICULOPATHY, LEFT ANKLE PAIN [id number] 06/27/2013 11:33:00 06/27/2013 23:59:59 CLS Outpatient DEONDRE VERNON MD [facility] RAD RUQ PAIN [id number] 06/26/2013 08:42:00 06/26/2013 23:59:59 CLS Outpatient DEONDRE VERNON MD [facility] RAD RUQ PAIN [id number] 11/28/2014 07:55:00 Document Registration [id number] 12/31/2012 13:10:00 Document Registration [id number] 01/26/2012 00:00:00 Document Registration [id number] 11/02/2011 15:30:00 Document Registration [id number] 11/02/2011 15:30:00 Document Registration [id number] 04/07/2011 08:06:00 Document Registration [id number] 07/07/2010 08:32:00 Document Registration [id number] 06/23/2009 11:57:00 Document Registration [id number] 06/22/2009 15:40:00 Document Registration
[2017-10-04] MEDS ORDERED: NS IV 1000 ML 1,000 ML IV ONE (19:22)
[2017-10-04] MEDS ORDERED: fentaNYL INJECTION 100 MCG/2 ML AMP IVP ONE (19:30)
[2017-10-04] MEDS ORDERED: HYOSCYAMINE 0.125 MG (LEVSIN) TAB SL ONE (19:30)
[2017-10-04] MEDS ORDERED: ONDANSETRON 4 MG/2 ML (SDV) Z0FRAN IVP ONE (19:30)
[2017-10-04 19:34] LABS: BASOPHILS % (AUTO) 0 % (0-10); EOSINOPHILS # (AUTO) 0.3 10^3/uL (0.0-0.3); EOSINOPHILS % (AUTO) 4 % (0-10); HEMATOCRIT 41 % (35-52); HEMOGLOBIN 13.9 G/DL (11.5-16.0); LYMPHOCYTES # (AUTO) 1.5 X 10^3 (1.0-4.0); LYMPHOCYTES % (AUTO) 17 % (12-44); MEAN CORPUSCULAR HEMOGLOBIN 33 PG (25-34); MEAN CORPUSCULAR HGB CONC 34 G/DL (32-36); MEAN CORPUSCULAR VOLUME 97 FL (80-99); MEAN PLATELET VOLUME 9.5 FL (7.4-10.4); MONOCYTES # (AUTO) 0.5 X 10^3 (0.0-1.0); MONOCYTES % (AUTO) 6 % (0-12); NEUTROPHILS # (AUTO) 6.4 X 10^3 (1.8-7.8); NEUTROPHILS % (AUTO) 73 % (42-75); PLATELET COUNT 219 10^3/uL (130-400); RED BLOOD COUNT 4.25 10^6/uL (4.35-5.85); RED CELL DISTRIBUTION WIDTH 13.5 % (10.0-14.5); WHITE BLOOD COUNT 8.8 10^3/uL (4.3-11.0)
[2017-10-04 19:48] LABS: ALANINE AMINOTRANSFERASE 22 U/L (0-55); ALBUMIN 4.5 GM/DL (3.2-4.5); ALKALINE PHOSPHATASE 52 U/L (40-136); BILIRUBIN,TOTAL 0.2 MG/DL (0.1-1.0); CALCIUM 9.3 MG/DL (8.5-10.1); CARBON DIOXIDE 25 MMOL/L (21-32); CHLORIDE 104 MMOL/L (98-107); GLUCOSE 117 MG/DL (70-105); LIPASE 17 U/L (8-78); POTASSIUM 4.3 MMOL/L (3.6-5.0); SODIUM 142 MMOL/L (135-145); TOTAL PROTEIN 7.4 GM/DL (6.4-8.2)
[2017-10-04 20:25] LABS: BUN/CREATININE RATIO 22; CREATININE SERUM 0.82 MG/DL (0.60-1.30); GFR ESTIMATED > 60
[2017-10-04 20:44] LABS: BILIRUBIN,URINE NEGATIVE (NEGATIVE); CLARITY,URINE CLEAR; COLOR,URINE YELLOW; GLUCOSE, URINE (UA) NEGATIVE (NEGATIVE); KETONES,URINE NEGATIVE (NEGATIVE); LEUKOCYTE ESTERASE ,URINE 1+ (NEGATIVE); NITRITE,URINE NEGATIVE (NEGATIVE); PH,URINE 5 (5-9); PROTEIN,URINE 1+ (NEGATIVE); UROBILINOGEN,URINE NORMAL (NORMAL)
[2017-10-04] MEDS ORDERED: IOHEXOL 350 MG/ML 100 ML (OMNIPAQUE 350) VIAL IV ONE (21:30)
[2017-10-04] MEDS ORDERED: NS 100 ML (IVPB) BAG IV ONE (21:30)
--- NOTE | 2017-10-04 23:49 | ED Abdominal Pain ---
General Chief Complaint: Abdominal/GI Problems Stated Complaint: ABD PAIN Nursing Triage Note: pt reports upper abdominal pain that is intermittent and started 2 hours ago. Sepsis Screen: No Definite Risk Source of Information: Patient Exam Limitations: No Limitations History of Present Illness Time Seen By Provider: 19:12 Initial Comments This 72-year-old woman presents to the emergency room by private vehicle with complaints of abdominal pain across the umbilicus that is waxing and waning with associated cramps. She was nauseated and began to vomit after my assessment. She vomited approximately 1 L of stomach contents. She states the pain seems migratory and started about 2 hours before assessment. She reports having a normal bowel movement this morning. She reports recently finishing doxycycline for treatment of pneumonia. She also reports a history of prior diverticulitis. She has been afebrile. Allergies and Home Medications Allergies Uncoded Allergies: CEPHALEXIN,PCN (Allergy, Unknown, 04/02/15) Home Medications Aspirin 81 Mg Tablet.dr, 81 MG PO DAILY, (Reported) Carboxymethylcellulose Sodium 15 Ml Drp.lq.gel, 1 ML OP, (Reported) Estradiol 0.5 Mg Tablet, 0.5 MG VG THREE TIMES WEEKLY, (Reported) Flecainide Acetate 50 Mg Tablet, (Reported) Fluticasone Propionate 9.9 Ml [place].susp, 9.9 ML NS, (Reported) Lorazepam 0.5 Mg Tablet, 0.5 MG PO TID, (Reported) Metoprolol Succinate 25 Mg Tab.er.24h, 25 MG PO DAILY, #30 Ref 6 Prescribed by: ADOLFO CARDENAS on 01/24/16 1229 Propranolol HCl 20 Mg Tablet, 20 MG PO Q1HR PRN for TACHYCARDIA, (Reported) Review of Systems Constitutional: no symptoms reported EENTM: No Symptoms Reported Respiratory: No Symptoms Reported Cardiovascular: No Symptoms Reported Gastrointestinal: See HPI Genitourinary: No Symptoms Reported Musculoskeletal: no symptoms reported Skin: no symptoms reported Psychiatric/Neurological: No Symptoms Reported Endocrine: No Symptoms Reported Past Auyrlsp-Xdzevd-Lgllbv Hx Patient Social History Alcohol Use: Regular Use Alcohol Beverage of Choice: Beer Recreational Drug Use: No Smoking Status: Never a Smoker Recent Foreign Travel: No Contact w/Someone Who Travel: No Recent Infectious Disease Expo: No Physical Abuse: No Sexual Abuse: No Mistreated: No Immunizations Up To Date Tetanus Booster (TDap): Unknown PED Vaccines UTD: No Surgeries History of Surgeries: Yes Surgeries: Bladder Surgery, Cardiac (loop recorder), Hysterectomy, Oophorectomy Cardiovascular Cardiac Disorders: Irregular Heartbeat, Palpitations Reproductive System Hx Reproductive Disorders: No Sexually Transmitted Disease: No HIV/AIDS: No Female Reproductive Disorders: Denies Gastrointestinal Gastrointestinal Disorders: Gastroesophageal Reflux Musculoskeletal Musculoskeletal Disorders: Arthritis HEENT HEENT Disorders: Cataract Loss of Vision: Bilateral Hearing Impairment: Denies Psychosocial Behavioral Health Disorders: Anxiety, Depression Suicide Risk Score: 0 Physical Exam Vital Signs VS - Last 72 Hours, by Label 10/04/17 18:47 Temp 98.2 Pulse 88 Resp 20 B/P (MAP) 137/86 (103) Pulse Ox 97 Capillary Refill : Less Than 3 Seconds General Appearance: WD/WN, moderate distress HEENT: PERRL/EOMI, normal ENT inspection, other (oropharynx dry) Neck: supple, normal inspection Respiratory: lungs clear, normal breath sounds, no respiratory distress, no accessory muscle use Cardiovascular: regular rate, rhythm, no edema, no murmur Gastrointestinal: normal bowel sounds, abnormal bowel sounds (present but decreased), distended, tenderness (generalized) Extremities: non-tender, normal inspection, no pedal edema Neurologic/Psychiatric: tube making machine operator II-XII nml as tested, no motor/sensory deficits, alert, normal mood/affect, oriented x 3 Skin: normal color, warm/dry Progress/Results/Core Measures Results/Orders Lab Results Laboratory Tests Test 10/04/17 18:42 10/04/17 20:35 Range/Units White Blood Count 8.8 4.3-11.0 10^3/uL Red Blood Count 4.25 L 4.35-5.85 10^6/uL Hemoglobin 13.9 11.5-16.0 G/DL Hematocrit 41 35-52 % Mean Corpuscular Volume 97 80-99 FL Mean Corpuscular Hemoglobin 33 25-34 PG Mean Corpuscular Hemoglobin Concent 34 32-36 G/DL Red Cell Distribution Width 13.5 10.0-14.5 % Platelet Count 219 130-400 10^3/uL Mean Platelet Volume 9.5 7.4-10.4 FL Neutrophils (%) (Auto) 73 42-75 % Lymphocytes (%) (Auto) 17 12-44 % Monocytes (%) (Auto) 6 0-12 % Eosinophils (%) (Auto) 4 0-10 % Basophils (%) (Auto) 0 0-10 % Neutrophils # (Auto) 6.4 1.8-7.8 X 10^3 Lymphocytes # (Auto) 1.5 1.0-4.0 X 10^3 Monocytes # (Auto) 0.5 0.0-1.0 X 10^3 Eosinophils # (Auto) 0.3 0.0-0.3 10^3/uL Basophils # (Auto) 0.0 0.0-0.1 10^3/uL Sodium Level 142 135-145 MMOL/L Potassium Level 4.3 3.6-5.0 MMOL/L Chloride Level 104 98-107 MMOL/L Carbon Dioxide Level 25 21-32 MMOL/L Anion Gap 13 5-14 MMOL/L Blood Urea Nitrogen 18 7-18 MG/DL Creatinine 0.82 0.60-1.30 MG/DL Estimat Glomerular Filtration Rate > 60 BUN/Creatinine Ratio 22 Glucose Level 117 H 70-105 MG/DL Calcium Level 9.3 8.5-10.1 MG/DL Total Bilirubin 0.2 0.1-1.0 MG/DL Aspartate Amino Transf (AST/SGOT) 26 5-34 U/L Alanine Aminotransferase (ALT/SGPT) 22 0-55 U/L Alkaline Phosphatase 52 40-136 U/L Total Protein 7.4 6.4-8.2 GM/DL Albumin 4.5 3.2-4.5 GM/DL Lipase 17 8-78 U/L Urine Color YELLOW Urine Clarity CLEAR Urine pH 5 5-9 Urine Specific Pierce 1.025 H 1.016-1.022 Urine Protein 1+ H NEGATIVE Urine Glucose (UA) NEGATIVE NEGATIVE Urine Ketones NEGATIVE NEGATIVE Urine Nitrite NEGATIVE NEGATIVE Urine Bilirubin NEGATIVE NEGATIVE Urine Urobilinogen NORMAL NORMAL MG/DL Urine Leukocyte Esterase 1+ H NEGATIVE Urine RBC (Auto) NEGATIVE NEGATIVE Urine RBC NONE /HPF Urine WBC 2-5 /HPF Urine Squamous Epithelial Cells 2-5 /HPF Urine Crystals NONE /LPF Urine Bacteria NONE /HPF Urine Casts NONE /LPF Urine Mucus SMALL H /LPF Urine Culture Indicated NO My Orders Orders - VIDHI RODRIGUEZ MD Cbc With Automated Diff (10/04/17 19:13) Comprehensive Metabolic Panel (10/04/17 19:13) Lipase (10/04/17 19:13) Ua Culture If Indicated (10/04/17 19:13) Saline Lock/Iv-Start (10/04/17 19:13) Ondansetron Injection (Zofran Injectio (10/04/17 19:30) Fentanyl Injection (Sublimaze Injection (10/04/17 19:30) Ns Iv 1000 Ml (Sodium Chloride 0.9%) (10/04/17 19:22) Hyoscyamine Sl Tablet (Levsin Sl Tablet) (10/04/17 19:30) Ct Abdomen/Pelvis W (10/04/17 20:52) Iohexol Injection (Omnipaque 350 Mg/Ml 1 (10/04/17 21:30) Ns (Ivpb) (Sodium Chloride 0.9% Ivpb Bag (10/04/17 21:30) Medications Given in ED Current Medications Medications Dose Ordered Sig/Vahid Route Start Time Stop Time Status Last Admin Dose Admin Fentanyl Citrate 50 mcg ONCE ONCE IVP 10/04/17 19:30 10/04/17 19:31 DC 10/04/17 19:29 50 MCG Hyoscyamine Sulfate 0.25 mg ONCE ONCE SL 10/04/17 19:30 10/04/17 19:31 DC 10/04/17 19:29 0.25 MG Iohexol 100 ml ONCE ONCE IV 10/04/17 21:30 10/04/17 21:31 DC 10/04/17 21:20 100 ML Ondansetron HCl 8 mg ONCE ONCE IVP 10/04/17 19:30 10/04/17 19:31 DC 10/04/17 19:29 8 MG Sodium Chloride 80 ml ONCE ONCE IV 10/04/17 21:30 10/04/17 21:31 DC 10/04/17 21:20 80 ML Sodium Chloride 1,000 ml @ 0 mls/hr Q0M ONCE IV 10/04/17 19:22 10/04/17 19:24 DC 10/04/17 19:29 0 MLS/HR Vital Signs/I&O Vital Sign - Last 12Hours 10/04/17 18:47 Temp 98.2 Pulse 88 Resp 20 B/P (MAP) 137/86 (103) Pulse Ox 97 Blood Pressure Mean: 103 Progress Note : Progress Note Patient received Zofran, Levsin and fentanyl for symptom management. She received a liter of IV fluids. Labs were unremarkable but because of patient's severity of symptoms and large volume of emesis, CT was ordered. Patient was relatively comfortable at the time of admission. Case was reviewed with Dr. Escobar and Dr. Blank. Patient has a preference for Dr. Brown for surgical consult due to existing relationship. Consult will be placed for him with calls to Abhay cantu. Diagnostic Imaging Diagonstic Imaging: CT Plain Films/CT/US/NM/MRI: abdomen, pelvis Comments CT abdomen and pelvis viewed by me and [facility] report reviewed. There is small bowel dilatation with a transition point in the right lower quadrant suggestive of small bowel obstruction. Departure Communication (Admissions) Time/Spoke to Admitting Phy: 23:[address] Escobar Time/Spoke to Consulting Phy: 23:40 Communication/Consulting Dr. Blank Impression Impression: Primary Impression: Small bowel obstruction Additional Impressions: Abdominal pain Qualified Codes: R10.84 - Generalized abdominal pain Vomiting Qualified Codes: R11.2 - Nausea with vomiting, unspecified Disposition: ADMITTED INPATIENT Condition: Improved Admissions Decision to Admit Reason: Admit from ER (General) Decision to Admit/Date: Oct 04, 2017 Time/Decision to Admit Time: 23:15 Departure-Patient Inst. Referrals: DEONDRE VERNON MD (PCP/Family) Primary Care Physician VIDHI RODRIGUEZ MD Oct 04, 2017 23:49
--- OUTSIDE RECORDS SUMMARY | 2017-10-05 00:03 | XMS REPORT | Continuity of Care Document ---
Author Author [employer] Organization [facility] Address Unknown Phone Unavailable Care Team Providers Care Big Data Lead Name Role Phone [employer] Unavailable Unavailable Problems Medications Allergies, Adverse Reactions, Alerts Immunizations Results Vital Signs Encounters Location Location Details Encounter Type Encounter Number Reason For Visit Attending Provider ADM Date DC Date Status Source OUTPATIENT [id number] ELSA ANTHONY 05/01/2017 05/01/2017 Active [facility] OUTPATIENT [id number] ELSA ANTHONY 07/05/2017 07/05/2017 Active [facility] OUTPATIENT [id number] ELSA ANTHONY 08/08/2017 08/08/2017 Active [facility] OUTPATIENT [id number] ELSA ANTHONY 08/23/2017 08/23/2017 Active [facility] OUTPATIENT [id number] ELSA ANTHONY 09/12/2017 09/12/2017 Active [facility] O Active [facility] Procedures Plan of Care Social History Assessment and Plan Family History Advance Directives Functional Status
--- OUTSIDE RECORDS SUMMARY | 2017-10-05 00:04 | XMS REPORT | Encounter Summary ---
Author Author [facility] Organization [facility] Address Unknown Phone Unavailable Care Team Providers Care Cook Tortilla Name Role Phone PCP Unavailable Encounter Details Date Type Department Care Team Description 09/14/2017 Telephone [facility] Cardiology Magalie Wade, RN [address] [place] [address] Social History Tobacco Use Types [...] Magalie Wade RN - 09/14/2017 10:33 AM WEIGHER OPERATOR returned call - states she is driving [...] Magalie Wade RN - 09/14/2017 10:33 AM WEIGHER OPERATOR ----- Message from Kaela Pichardo LPN sent at 09/14/2017 8:39 AM WEIGHER OPERATOR ----- Regarding: MPE- RTC for Magalie MANDIE from patient on triage line returning our call. Said that she had blurred vision before she started the medication but she is coughing. Said to call home or cell # [phone]. in this encounter Plan of Treatment Not on fileas of this encounter Visit Diagnoses Not on filein this encounter
--- OUTSIDE RECORDS SUMMARY | 2017-10-05 00:04 | XMS REPORT | Encounter Summary ---
Author Author [facility] Organization [facility] Address Unknown Phone Unavailable Care Team Providers Care Meat And Seafood Manager Name Role Phone PCP Unavailable Reason for Visit * Reason Comments Eye Problem PT is here for her 6 month FUV for PVD bilateral. Pt states that her vision has been a little weaker for her OS. Medications Only Pt is using AT's (B&L Soothe) at least 4-5 times a day OU. 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 Assessment [...]
--- OUTSIDE RECORDS SUMMARY | 2017-10-05 00:04 | XMS REPORT | Encounter Summary ---
Author Author [facility] Organization [facility] Address Unknown Phone Unavailable Care Team Providers Care Commercial Fisher Name Role Phone PCP Unavailable Encounter Details Date Type Department Care Team Description 09/12/2017 [facility] Cardiology Temo Knowles MD Encounter Remote Device Check [address] [facility] [phone] [address] [place] [address] [phone] Social History Tobacco Use Types Packs/Day Years [...] ILR Routine Essential hypertension 2016 4:05 PM ASSOCIATE MATERIAL HANDLER Hypercholesteremia SVT (supraventricular tachycardia) (HCC) AVNRT (AV marquita re-entry tachycardia) (HCC) Tachycardia as of this encounter Visit Diagnoses Diagnosis Essential hypertension Unspecified essential hypertension Hypercholesteremia Pure hypercholesterolemia SVT (supraventricular tachycardia) (HCC) Other specified cardiac dysrhythmias AVNRT (AV marquita re-entry tachycardia) (HCC) Other specified cardiac dysrhythmias Tachycardia Tachycardia, unspecified in this encounter
--- OUTSIDE RECORDS SUMMARY | 2017-10-05 00:04 | XMS REPORT | Encounter Summary ---
Author Author [facility] Organization [facility] Address Unknown Phone Unavailable Care Team Providers Care Marketing Admin Name Role Phone PCP Unavailable Encounter Details Date Type Department Care Team Description 08/08/2017 [facility] Cardiology Temo Knowles MD Encounter Remote Device Check [address] [facility] [phone] [address] [place] [address] [phone] Social History Tobacco Use Types Packs/Day Years [...] Generator Model # [id number] Generator Serial # [id number] Generator Implnat Date 04/13/16 Remote Monitor Serial# [id number] YEE/EOL Indicator per transmitter Generator Land Classifier Ondango Wireless Generator Yes Device Type ILR Device [place] Carelink Express Transmitter Compatible Permanent Comments r [...]
--- OUTSIDE RECORDS SUMMARY | 2017-10-05 00:04 | XMS REPORT | Clinical Summary ---
Author Author [facility] Organization [facility] Address Unknown Phone Unavailable Care Team Providers Care Suggestion Clerk Name Role Phone PCP Unavailable Source Comments Some departments are not documenting in the electronic medical record. If you do not see the information that you expected, contact Release of Information in the Health Information Management department at [phone] for further assistance in locating additional records.[facility] Allergies Active Allergy Reactions Severity Noted [...] Noted Date AVNRT (AV marquita re-entry tachycardia) ([facility]) 06/01/2016 Overview: 05/31/16 SVT Ablation--Slow pathway modification for typical AVNRT - Dr. Knowles SVT (supraventricular tachycardia) ([facility]) 05/31/2016 Tachycardia 05/17/2016 Overview: 03/2016 [place]: Echocardiogram -- Normal 03/2016 [place]: Stress thallium - "normal" 04/13/16 ILR implant - Medtronic Linq - Essential hypertension 05/17/2016 Hypercholesteremia 05/17/2016 JULIO (obstructive sleep apnea) 05/17/2016 Chronic headache 05/17/2016 Encounters Date Type Specialty Care Team Description 09/20/2017 Telephone Cardiology Gina Frank RN Medication Question (questions on Cartia ) 09/14/2017 Telephone Cardiology Magalie Wade RN 09/12/2017 [facility] Cardiology Temo Knowles MD Encounter 08/23/2017 Office Visit Cardiology Temo Knowles MD Palpitations ( 9 month follow up) 08/23/2017 [facility] Cardiology Temo Knowles MD Encounter 08/08/2017 [facility] Cardiology Temo Knowles MD Encounter 08/07/2017 Office Visit Ophthalmology Alieen Gallo, OD PVD ( posterior vitreous detachment), bilateral (Primary Dx);Pseudophakia of both eyes;Epiretinal membrane (ERM) of left eye;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 [facility] Cardiology Temo Knowles MD Encounter from Last [...] Taken Blood Pressure 140/70 08/23/2017 9:55 AM EVENT MANAGER Pulse 74 08/23/2017 9:55 AM EVENT MANAGER Temperature 36.8 C (98.2 F) 05/31/2016 9:55 AM CDT Respiratory Rate - - Oxygen Saturation 95% 05/31/2016 4:00 PM CDT Inhaled Oxygen - - Concentration Weight 57.7 kg (127 lb 3.2 oz) 08/23/2017 9:55 AM EVENT MANAGER Height 165.1 cm (5' 5") 08/23/2017 9:55 AM EVENT MANAGER Body Mass Index 21.17 08/23/2017 9:55 AM EVENT MANAGER Plan of Treatment Health Maintenance Due Date Last Done Comments HEPATITIS C SCREENING 1945 PHYSICAL (COMPREHENSIVE) 1952 EXAM PERTUSSIS VACCINE 1956 TETANUS VACCINE 1962 FOOT EXAM 1963 HBA1C 1963 MICROALBUMIN 1963 BREAST CANCER SCREENING 1985 COLORECTAL CANCER 1995 SCREENING SHINGLES VACCINE 2005 OSTEOPOROSIS SCREENING 2010 PREVNAR/PNEUMOVAX (#1) 2010 INFLUENZA VACCINE 04/18/2017 DILATED EYE EXAM 08/09/2017 08/09/2016 Implants Implanted Type Area Senior Managing Director Device Expiration Model / Identifier Date Serial / Lot Loop Recorder Results * ECG/QRS (08/23/2017 10:26 AM) Component Value Ref Range QRS DURATION 82 Specimen Performing Laboratory OTHER OUTSIDE LAB * DEVICE EVALUATION - ILR (08/23/2017 9:55 AM) Component Value Ref Range Device Implanted By Dr.Martin Knowles Generator Model # LNQ11 Generator Serial # [id number] Generator Implnat Date 04/13/16 Remote Monitor Serial# [id number] YEE/EOL Indicator per transmitter Generator Senior Managing Director Medtronic Wireless Generator Yes Device Type ILR Device [place] Carelink Express Transmitter Compatible Permanent Comments r [...] back in. She is going to call [employer] to troubleshoot when she is home tomorrow. [...] Generator Model # [id number] Generator Serial # [id number] Generator Implnat Date 04/13/16 Remote Monitor Serial# [id number] YEE/EOL Indicator per transmitter Generator Senior Managing Director Medtronic Wireless Generator Yes Device Type ILR Device [place] Carelink Express Transmitter Compatible Permanent Comments r [...]
--- OUTSIDE RECORDS SUMMARY | 2017-10-05 00:04 | XMS REPORT | Encounter Summary ---
Author Author [facility] Organization [facility] Address Unknown Phone Unavailable Care Team Providers Care Pattern Grader Name Role Phone PCP Unavailable Encounter Details Date Type Department Care Team Description 08/23/2017 [facility] Cardiology Temo Knowles MD Encounter [id number] [facility] [address] [place] [address] [place] [address] [phone] Social History Tobacco Use Types Packs/Day Years [...] Generator Model # [id number] Generator Serial # [id number] Generator Implnat Date 04/13/16 Remote Monitor Serial# [id number] YEE/EOL Indicator per transmitter Generator Um Nurse [employer] Wireless Generator Yes Device Type ILR Device [place] Carelink Express Transmitter Compatible Permanent Comments r [...] back in. She is going to call [employer] to troubleshoot when she is home tomorrow. [...]
--- OUTSIDE RECORDS SUMMARY | 2017-10-05 00:04 | XMS REPORT | Encounter Summary ---
Author Author [facility] Organization [facility] Address Unknown Phone Unavailable Care Team Providers Care Iron Plastic Bullet Maker Name Role Phone PCP Unavailable Reason for Visit * Reason Comments Palpitations 9 month follow up Encounter Details Date Type Department Care Team Description 08/23/2017 Office Visit [facility] Cardiology Temo Knowles MD Palpitations ([address] follow up) [address] [place] [address] [place] [address] [phone] Social History Tobacco Use Types Packs/Day Years Used Date Never Smoker Smokeless Tobacco: Never Used Alcohol Use Drinks/Week oz/Week Comments Yes Social Sex Assigned at Date Recorded Not on file as of this encounter Last Filed Vital Signs Vital Sign Reading Time Taken Blood Pressure 140/70 08/23/2017 9:55 AM NOZZLE AND SLEEVE WORKER Pulse 74 08/23/2017 9:55 AM NOZZLE AND SLEEVE WORKER Temperature - - Respiratory Rate - - Oxygen Saturation - - Inhaled Oxygen - - Concentration Weight 57.7 kg (127 lb 3.2 oz) 08/23/2017 9:55 AM NOZZLE AND SLEEVE WORKER Height 165.1 cm (5' 5") 08/23/2017 9:55 AM NOZZLE AND SLEEVE WORKER Body Mass Index 21.17 08/23/2017 9:55 AM NOZZLE AND SLEEVE WORKER in this encounter Functional Status Functional Status [...] Magalie Wade RN - 08/23/2017 10:00 AM NOZZLE AND SLEEVE WORKER follow up in [address] [...] the office. call to update medication list [phone] Visit with your sleep specialist about obstructive sleep apnea Have a regadenoson thallium completed with your primary care physician when completed have your pcp fax to [phone] in this encounter Progress Notes * Temo Knowles MD - 08/23/2017 10:00 AM NOZZLE AND SLEEVE WORKER Formatting of this note may be different from the original. Date of Service: 08/23/2017 Antionette Piedra is a 72 y.o. female. HPI I had the pleasure of seeing your patient Antionette Piedra in the [facility] as a part of the [facility] office today for follow up regarding her tachypalpitations. Her Primary Hemodialysis Rn is Dr. Esquivel in [place], [place]. Ms. Piedra is an exceptionally pleasant [...] 10-15 min while en route to [facility] ED. -- 01/2016: Evaluated by Dr. Esquivel [...] SVT (supraventricular tachycardia) (HCC) 05/31/2016 Tachycardia 05/17/201603/2016 [place]: Echocardiogram -- Normal 03/2016 [place]: Stress thallium - "normal" 04/13/16 ILR implant [...] 74 bpm with 2 isolated PVCs. Medtronic Onovative LinQ Implantable Monitor. Full device check performed [...]
--- OUTSIDE RECORDS SUMMARY | 2017-10-05 00:04 | XMS REPORT | Encounter Summary ---
Author Author [facility] Organization [facility] Address Unknown Phone Unavailable Care Team Providers Care Logging Engineer Name Role Phone PCP Unavailable Reason for Visit * Reason Comments Medication Question questions on Cartia Encounter Details Date Type Department Care Team Description 09/20/2017 Telephone [facility] Cardiology Gina Frank RN Medication Question [address] (questions on Cartia ) [place] [address] Social History Tobacco Use Types [...] Gina Frank, RN - 09/20/2017 11:50 AM SUPERVISOR BLOOMING MILL 09/20/17 Pt has stopped Cartia but has [...] Pichardo LPN sent at 09/20/2017 11:35 AM SUPERVISOR BLOOMING MILL ----- Regarding: MPE- med question VM from [...]
--- OUTSIDE RECORDS SUMMARY | 2017-10-05 00:05 | XMS REPORT | Encounter Summary ---
Author Author [facility] Organization [facility] Address Unknown Phone Unavailable Care Team Providers Care Bulking Machine Operator Name Role Phone PCP Unavailable Encounter Details Date Type Department Care Team Description 07/05/[address] [facility] Cardiology Temo Knowles MD Encounter Remote Device Check [address] [facility] [phone] [address] [place] [address] [phone] Social History Tobacco Use Types Packs/Day Years [...] Generator Model # [id number] Generator Serial # [id number] Generator Implnat Date 04/13/16 Remote Monitor Serial# [id number] YEE/EOL Indicator per transmitter Generator Telesales Agent SPEEDELO Wireless Generator Yes Device Type ILR Device [employer] Express Transmitter Compatible Permanent Comments r [...] symptom activated events, 1 available for review. StyleSeat message sent to patient requesting manual transmission [...]
--- OUTSIDE RECORDS SUMMARY | 2017-10-05 00:06 | XMS REPORT | Continuity of Care Document ---
Author Author [facility] Organization [facility] Address Unknown Phone Unavailable Allergies Active Description [...] GRAY, DEONDRE R Ot 729.5 10/02/2014 JANEEN GRAY, DEONDRE R Ot 733.99 10/02/2014 JANEEN GRAY, DEONDRE R Ot 735.0 10/02/2014 JANEEN GRAY, DEONDRE R Ot 782.3 10/02/2014 JANEEN GRAY, DEONDRE R Ot 793.7 10/10/2014 YEE OSUNA MD Ot 721.3 LUMBOSACRAL SPONDYLOSIS 10/10/2014 YEE [...] JANEEN GRAY, DEONDRE R Ot 719.07 12/17/2014 JNAEEN GRAY, DEONDRE R Ot 719.47 12/17/2014 JANEEN [...] 04/02/2015 Ot 785.0 04/23/2015 NWAGWU, ISIDORE O METAL BUFFER Ot 785.0 04/23/2015 NWAGWU, ISIDORE O METAL BUFFER Ot 786.09 04/30/2015 NWAGWU, ISIDORE O METAL BUFFER Ot 785.0 04/30/2015 NWAGWU, ISIDORE O METAL BUFFER Ot 786.09 05/11/2015 NWAGWU, ISIDORE O METAL BUFFER Ot 785.0 05/11/2015 NWAGWU, ISIDORE O METAL BUFFER Ot 786.09 05/15/2015 NWAGWU, ISIDORE O METAL BUFFER Ot 785.0 05/15/2015 NWAGWU, ISIDORE O METAL BUFFER Ot 786.09 08/07/2015 YEE OSUNA MD Ot [...] OTH MED,LT,CURRENT USE 01/22/2016 NWAGWU, ISIDORE O METAL BUFFER Ot 785.0 TACHYCARDIA NOS 01/22/2016 NWAGWU, ISIDORE O METAL BUFFER Ot 786.09 RESPIRATORY ABNORM NEC 01/22/2016 NWAGWU, ISIDORE O METAL BUFFER Ot 785.0 TACHYCARDIA NOS 01/22/2016 NWAGWU, ISIDORE O METAL BUFFER Ot 786.09 RESPIRATORY ABNORM NEC 01/22/2016 Ot [...] OTH MED,LT,CURRENT USE 01/22/2016 NWAGWU, ISIDORE O METAL BUFFER Ot 785.0 TACHYCARDIA NOS 01/22/2016 NWAGWU, ISIDORE O METAL BUFFER Ot 786.09 RESPIRATORY ABNORM NEC 01/22/2016 NWAGWU, ISIDORE O METAL BUFFER Ot 785.0 TACHYCARDIA NOS 01/22/2016 NWAGWU, ISIDORE O METAL BUFFER Ot 786.09 RESPIRATORY ABNORM NEC 01/22/2016 YEE OSUNA MD Ot M47.816 SPONDYLOSIS W/O MYELOPATHY OR RADICULOPA 01/22/2016 YEE OSUNA MD Ot M51.16 INTERVERTEBRAL DISC DISORDERS W RADICULO 01/22/2016 YEE OSUNA MD Ot Z79.899 OTHER FDC (CURRENT) DRUG THERAPY 01/23/2016 Ot 272.0 PURE [...] OT MED,LT,CURRENT USE 01/23/2016 NWAGWU, ISIDORE O METAL BUFFER Ot 785.0 TACHYCARDIA NOS 01/23/2016 NWAGWU, ISIDORE O METAL BUFFER Ot 786.09 RESPIRATORY ABNORM NEC 01/23/2016 NWAGWU, ISIDORE O METAL BUFFER Ot 785.0 TACHYCARDIA NOS 01/23/2016 NWAGWU, ISIDORE O METAL BUFFER Ot 786.09 RESPIRATORY ABNORM NEC 01/24/2016 DEONDRE [...] 02/01/2016 YEE OSUNA MD Ot Z79.899 OTHER [employer] (CURRENT) DRUG THERAPY 02/18/2016 Ot 272.0 PURE [...] Ot 443.9 PERIPH VASCULAR DIS NOS 02/18/2016 DORNEE COX MD Ot 723.0 CERVICAL SPINAL STENOSIS 02/18/2016 YEE OSUNA MD Ot 721.3 LUMBOSACRAL SPONDYLOSIS 02/18/2016 YEE OSUNA MD Ot V58.69 OTH MED,LT,CURRENT USE 02/18/2016 NWAGWU, ISIDORE O METAL BUFFER Ot 785.0 TACHYCARDIA NOS 02/18/2016 NWAGWU, ISIDORE O METAL BUFFER Ot 786.09 RESPIRATORY ABNORM NEC 02/18/2016 NWAGWU, ISIDORE O METAL BUFFER Ot 785.0 TACHYCARDIA NOS 02/18/2016 NWAGWU, ISIDORE O METAL BUFFER Ot 786.09 RESPIRATORY ABNORM NEC 02/18/2016 Ot 272.0 PURE HYPERCHOLESTEROLEM 02/18/2016 Ot 704.00 ALOPECIA NOS 02/18/2016 Ot V07.4 HORMONE REPLACEMENT THERAPY (POSTMENOPAU 02/18/2016 Ot 785.0 TACHYCARDIA NOS 02/18/2016 Ot 785.0 TACHYCARDIA NOS 02/18/2016 Ot 724.6 DISORDERS OF SACRUM 02/18/2016 JANEEN GRAY, DEONDRE uDnn Ot 789.01 ABDOMINAL PAIN, RIGHT UPPER QUADRANT [...] OT MED,LT,CURRENT USE 02/18/2016 NWAGWU, MIGUELRE O METAL BUFFER Ot 785.0 TACHYCARDIA NOS 02/18/2016 NWAGWU, JERMAINDORE O METAL BUFFER Ot 786.09 RESPIRATORY ABNORM NEC 02/18/2016 NWAGWU, JERMAINDORE O METAL BUFFER Ot 785.0 TACHYCARDIA NOS 02/18/2016 NWAGWU, JERMAINDORE O METAL BUFFER Ot 786.09 RESPIRATORY ABNORM NEC 02/19/2016 FARHAD [...] Ot R06.02 SHORTNESS OF BREATH 05/18/2016 FARHAD GARY FACC, ALI FACP CCDS Ot R00.2 PALPITATIONS [...] OTH MED,LT,CURRENT USE 07/11/2016 NWAGWU, ISIDORE O METAL BUFFER Ot 785.0 TACHYCARDIA NOS 07/11/2016 NWAGWU, ISIDORE O METAL BUFFER Ot 786.09 RESPIRATORY ABNORM NEC 07/11/2016 NWAGWU, ISIDORE O METAL BUFFER Ot 785.0 TACHYCARDIA NOS 07/11/2016 NWAGWU, ISIDORE O METAL BUFFER Ot 786.09 RESPIRATORY ABNORM NEC 07/11/2016 JAMAR [...] OTH MED,LT,CURRENT USE 01/23/2017 NWAGWU, ISIDORE O METAL BUFFER Ot 785.0 TACHYCARDIA NOS 01/23/2017 NWAGWU, ISIDORE O METAL BUFFER Ot 786.09 RESPIRATORY ABNORM NEC 01/23/2017 NWAGWU, ISIDORE O METAL BUFFER Ot 785.0 TACHYCARDIA NOS 01/23/2017 NWAGWU, ISIDORE O METAL BUFFER Ot 786.09 RESPIRATORY ABNORM NEC 01/23/2017 JAMAR [...] SLEEP APNEA (ADULT) (PEDIATR 01/26/2017 STAN GAMBOA MD Ot G47.33 OBSTRUCTIVE SLEEP APNEA (ADULT) (PEDIATR Procedures There is no data. Results Test Result Range Complete blood count (CBC) with automated white blood cell (WBC) differential - 10/04/17 18:42 Blood leukocytes automated count (number/volume) 8.8 10*3/uL 4.3-11.0 Blood erythrocytes automated count (number/volume) 4.25 10*6/uL 4.35-5.85 Venous blood hemoglobin measurement (mass/volume) 13.9 g/dL 11.5-16.0 Blood hematocrit (volume fraction) 41 % 35-52 Automated erythrocyte mean corpuscular volume 97 [foz_us] 80-99 Automated erythrocyte mean corpuscular hemoglobin (mass per erythrocyte) 33 pg 25-34 Automated erythrocyte mean corpuscular hemoglobin concentration measurement ( mass/volume) 34 g/dL 32-36 Automated erythrocyte distribution width ratio 13.5 % 10.0-14.5 Automated blood platelet count (count/volume) 219 10*3/uL 130-400 Automated blood platelet mean volume measurement 9.5 [foz_us] 7.4-10.4 Automated blood neutrophils/100 leukocytes 73 % 42-75 Automated blood lymphocytes/100 leukocytes 17 % 12-44 Blood monocytes/100 leukocytes 6 % 0-12 Automated blood eosinophils/100 leukocytes 4 % 0-10 Automated blood basophils/100 leukocytes 0 % 0-10 Blood neutrophils automated count (number/volume) 6.4 10*3 1.8-7.8 Blood lymphocytes automated count (number/volume) 1.5 10*3 1.0-4.0 Blood monocytes automated count (number/volume) 0.5 10*3 0.0-1.0 Automated eosinophil count 0.3 10*3/uL 0.0-0.3 Automated blood basophil count (count/volume) 0.0 10*3/uL 0.0-0.1 Comprehensive metabolic panel - 10/04/17 18:42 Serum or plasma sodium measurement (moles/volume) 142 mmol/L 135-145 Serum or plasma potassium measurement (moles/volume) 4.3 mmol/L 3.6-5.0 Serum or plasma chloride measurement (moles/volume) 104 mmol/L 98-107 Carbon dioxide 25 mmol/L 21-32 Serum or plasma anion gap determination (moles/volume) 13 mmol/L 5-14 Serum or plasma urea nitrogen measurement (mass/volume) 18 mg/dL 7-18 Serum or plasma creatinine measurement (mass/volume) 0.82 mg/dL 0.60-1.30 Serum or plasma urea nitrogen/creatinine mass ratio 22 NRG Serum or plasma creatinine measurement with calculation of estimated glomerular filtration rate > NRG Serum or plasma glucose measurement (mass/volume) 117 mg/dL 70-105 Serum or plasma calcium measurement (mass/volume) 9.3 mg/dL 8.5-10.1 Serum or plasma total bilirubin measurement (mass/volume) 0.2 mg/dL 0.1-1.0 Serum or plasma alkaline phosphatase measurement (enzymatic activity/volume) 52 U/L 40-136 Serum or plasma aspartate aminotransferase measurement (enzymatic activity/ volume) 26 U/L 5-34 Serum or plasma alanine aminotransferase measurement (enzymatic activity/volume ) 22 U/L 0-55 Serum or plasma protein measurement (mass/volume) 7.4 g/dL 6.4-8.2 Serum or plasma albumin measurement (mass/volume) 4.5 g/dL 3.2-4.5 Lipase - 10/04/17 18:42 Lipase 17 U/L 8-78 Complete urinalysis with reflex to culture - 10/04/17 20:35 Urine color determination YELLOW NRG Urine clarity determination CLEAR NRG Urine pH measurement by test strip 5 5-9 Specific gravity of urine by test strip 1.025 1.016- 1.022 Urine protein assay by test strip, semi-quantitative 1+ NEGATIVE Urine glucose detection by automated test strip NEGATIVE NEGATIVE Erythrocytes detection in urine sediment by light microscopy NEGATIVE NEGATIVE Urine ketones detection by automated test strip NEGATIVE NEGATIVE Urine nitrite detection by test strip NEGATIVE NEGATIVE Urine total bilirubin detection by test strip NEGATIVE NEGATIVE Urine urobilinogen measurement by automated test strip (mass/volume) NORMAL NORMAL Urine leukocyte esterase detection by dipstick 1+ NEGATIVE Automated urine sediment erythrocyte count by microscopy (number/high power field) NONE NRG Automated urine sediment leukocyte count by microscopy (number/high power field ) [HPF] NRG Bacteria detection in urine sediment by light microscopy NONE NRG Squamous epithelial cells detection in urine sediment by light microscopy 2-5 NRG Crystals detection in urine sediment by light microscopy NONE NRG Casts detection in urine sediment by light microscopy NONE NRG Mucus detection in urine sediment by light microscopy SMALL NRG Complete urinalysis with reflex to culture NO NRG Encounters ACCT No. Visit Date/Time Discharge Status Pt. Type Provider Facility Loc./Unit Complaint [id number] 01/25/2017 20:00:00 01/26/2017 06:45:00 DIS Outpatient BEE GRAY, STAN [facility] SLEEP JULIO,ARRHYTHMIAS [id number] 10/10/2016 14:00:00 10/10/2016 23:59:59 CLS Preadmit ELSA ANTHONY MD [facility] CARD PVC,PALPITATIONS, DIZZINESS [id number] 07/11/2016 10:33:00 10/09/2016 00:01:00 DIS Outpatient ELSA ANTHONY MD [facility] CARD PVC,PALPITATIONS, DIZZINESS [id number] 07/25/2016 13:19:00 07/25/2016 23:59:59 CLS Outpatient DEONDRE VERNON MD [facility] RAD UPPER ABD PAIN [id number] 05/20/2016 10:36:00 05/20/2016 11:51:00 DIS Outpatient YEE OSUNA MD [facility] 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 [id number] 05/19/2016 09:00:00 05/19/2016 23:59:59 CLS Preadmit FARHAD MONSONCJACKIE FACP CCDS [facility] CARD PALPITATIONS [id number] 02/18/2016 09:30:00 05/18/2016 00:01:00 DIS Outpatient JACKIE LLAMAS MD, FACC, FACP CCDS [facility] CARD PALPITATIONS [id number] 03/23/2016 12:51:00 03/23/2016 23:59:59 CLS Outpatient JAMAR KOENIG DO [facility] RT SOB [id number] 01/23/2016 03:40:00 01/24/2016 12:40:00 DIS Inpatient DEONDRE VERNON MD [facility] ICU PSVT [id number] 01/22/2016 09:31:00 01/22/2016 11:17:00 DIS Outpatient EYE OSUNA MD [facility] CARD SPONDYLOSIS [id number] 08/07/2015 09:51:00 08/07/2015 11:17:00 DIS Outpatient YEE OSUNA MD [facility] 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 [id number] 04/06/2015 13:37:00 04/06/2015 23:59:59 CLS Outpatient JERMAIN KHANDORE O METAL BUFFER [facility] CARD TACHYCARDIA DYSPNEA WITH EXERTION [id number] 04/02/2015 11:35:00 04/02/2015 23:59:59 CLS Outpatient JOSE LUISWU ISIDORE O METAL BUFFER [facility] CARD TACHYCARDIA DYPNEA WITH EXERTION [id number] 02/06/2015 07:54:00 02/06/2015 09:04:00 DIS Outpatient YEE OSUNA MD [facility] CARD LUMBAR SPONODOLYOSIS [id number] 01/30/2015 09:58:00 01/30/2015 23:59:59 CLS Outpatient YEE OSUNA MD [facility] CARD LUMBAR SPONDOLOYSIS [id number] 01/22/2015 15:44:00 01/22/2015 17:00:00 DIS Outpatient DORENE COX MD [facility] REHAB LUMBAR DDD [id number] 10/10/2014 07:29:00 10/10/2014 08:49:00 DIS Outpatient YEE OSUNA MD [facility] CARD DDD [id number] 10/02/2014 12:07:00 10/02/2014 23:59:59 CLS Outpatient DORENE COX MD [facility] RAD GAIT DISTURBANCE HYPERFLEXIA PVD [id number] 12/03/2013 08:18:00 12/03/2013 23:59:59 CLS Outpatient DEONDRE VERNON MD [facility] RAD L-5, L-4 RADICULOPATHY, LEFT ANKLE PAIN [id number] 06/27/2013 11:33:00 06/27/2013 23:59:59 CLS Outpatient DEONDRE VERNON MD [facility] RAD RUQ PAIN [id number] 06/26/2013 08:42:00 06/26/2013 23:59:59 CLS Outpatient DEONDRE VERNON MD [facility] RAD RUQ PAIN [id number] 10/04/2017 19:35:00 Document Registration [id number] 11/28/2014 07:55:00 Document Registration [id number] 12/31/2012 13:10:00 Document Registration [id number] 01/26/2012 00:00:00 Document Registration [id number] 11/02/2011 15:30:00 Document Registration [id number] 11/02/2011 15:30:00 Document Registration [id number] 04/07/2011 08:06:00 Document Registration [id number] 07/07/2010 08:32:00 Document Registration [id number] 06/23/2009 11:57:00 Document Registration [id number] 06/22/2009 15:40:00 Document Registration
[2017-10-05] MEDS ORDERED: FLEC50TA PO (00:17)
[2017-10-05 02:00] VITALS: BP 128/66
[2017-10-05] MEDS ORDERED: ONDANSETRON 4 MG/2 ML (SDV) Z0FRAN IV PRN (02:30)
[2017-10-05] MEDS ORDERED: fentaNYL INJECTION 100 MCG/2 ML AMP IV PRN (02:30)
[2017-10-05] MEDS: D5 1/2 NS W/KCL 20 MEQ/L 1,000 ML IV SCH ×4 (03:15→22:05)
[2017-10-05 04:54] VITALS: BP 119/57
--- NOTE | 2017-10-05 06:20 | Diagnostic Imaging Report ---
PROCEDURE: CT abdomen and pelvis with contrast. TECHNIQUE: Multiple contiguous axial images were obtained through the abdomen and pelvis after administration of intravenous contrast. INDICATION: Pain. Exam compared 07/25/2016. FINDINGS: Mid to distal small bowel is dilated with air-fluid levels. The distal small bowel is fecalized. There is transition in bowel caliber in the right lower quadrant with no appreciable focal mass effect, however, in the region of the transition, the bowel wall is thickened and shows mucosal hyperenhancement. At least partial small bowel obstruction is present and obstruction owing to inflammatory bowel disease could not be excluded. No perforation, no free air, no pneumatosis. No abscess. Urinary tracts unremarkable. There is trace pelvic free fluid. There is no loculated collection or abscess. No adnexal lesion. IMPRESSION: At least partial small bowel obstruction is present, transition in the right lower quadrant where no identifiable mass effect is found. Distal small bowel near and just beyond the transition shows mucosal hyperemia and hyperenhancement with mild wall thickening and inflammatory or infectious enteritis as the etiology of suspected obstruction could not be excluded. No abscess or perforation. There is a small volume pelvic free fluid nonloculated. Dictated by: Dictated on workstation # [id number]
[2017-10-05 06:53] LABS: BASOPHILS % (AUTO) 0 % (0-10); EOSINOPHILS # (AUTO) 0.3 10^3/uL (0.0-0.3); EOSINOPHILS % (AUTO) 5 % (0-10); HEMATOCRIT 37 % (35-52); HEMOGLOBIN 12.4 G/DL (11.5-16.0); LYMPHOCYTES # (AUTO) 1.2 X 10^3 (1.0-4.0); LYMPHOCYTES % (AUTO) 20 % (12-44); MEAN CORPUSCULAR HEMOGLOBIN 33 PG (25-34); MEAN CORPUSCULAR HGB CONC 34 G/DL (32-36); MEAN CORPUSCULAR VOLUME 97 FL (80-99); MEAN PLATELET VOLUME 9.5 FL (7.4-10.4); MONOCYTES # (AUTO) 0.6 X 10^3 (0.0-1.0); MONOCYTES % (AUTO) 10 % (0-12); NEUTROPHILS # (AUTO) 3.9 X 10^3 (1.8-7.8); NEUTROPHILS % (AUTO) 66 % (42-75); PLATELET COUNT 165 10^3/uL (130-400); RED CELL DISTRIBUTION WIDTH 13.6 % (10.0-14.5)
[2017-10-05] MEDS ORDERED: INFLUENZA TRIvalent 2017-2018 0.5 ML/45 MCG SYR IM ONE (07:00)
[2017-10-05] MEDS ORDERED: CATHETER FLUSH 10 ML SYR IV PRN (07:00)
[2017-10-05 07:23] LABS: ALANINE AMINOTRANSFERASE 18 U/L (0-55); ALBUMIN 3.6 GM/DL (3.2-4.5); ALKALINE PHOSPHATASE 40 U/L (40-136); BILIRUBIN,TOTAL 0.4 MG/DL (0.1-1.0); BUN/CREATININE RATIO 20; CALCIUM 8.5 MG/DL (8.5-10.1); CARBON DIOXIDE 24 MMOL/L (21-32); CHLORIDE 109 MMOL/L (98-107); CREATININE SERUM 0.69 MG/DL (0.60-1.30); GFR ESTIMATED > 60; GLUCOSE 106 MG/DL (70-105); SODIUM 142 MMOL/L (135-145); TOTAL PROTEIN 5.6 GM/DL (6.4-8.2)
[2017-10-05 08:00] VITALS: BP 112/63
[2017-10-05] MEDS ORDERED: fentaNYL INJECTION 100 MCG/2 ML AMP IVP PRN (08:30)
[2017-10-05] MEDS ORDERED: DOXY100C2 PO (09:37)
[2017-10-05] MEDS ORDERED: FEXO1TAB40 PO (09:43)
[2017-10-05] MEDS ORDERED: LACT1CAP40 PO (09:43)
[2017-10-05] MEDS ORDERED: ACET-2650 PO (09:43)
[2017-10-05] MEDS ORDERED: ESTR0.5T VG (09:43)
[2017-10-05] MEDS ORDERED: LORA0.5T PO (09:43)
[2017-10-05] MEDS ORDERED: MULT-878 PO (09:43)
[2017-10-05] MEDS: FAMOTIDINE 20MG/2ML IV (PEPCID) IVP SCH ×2 (09:48→20:58)
[2017-10-05] MEDS: metroNIDAZOLE 500MG/100ML IVPB 100 ML IV SCH ×2 (09:48→20:58)
--- NOTE | 2017-10-05 10:05 | CONSULTATION REPORT ---
DATE OF SERVICE: 10/05/2017 PRIMARY CARE PHYSICIAN: Dr. Dung Johnson. ADMITTING PHYSICIAN: Dr. Escobar. HISTORY OF PRESENT ILLNESS: The patient is a 72-year-old female who presented to the Emergency Department last night for crampy lower abdominal pain, abdominal distention followed by nausea and vomiting. She reports that she has had some crampy lower abdominal pain; however, not to the abdominal distention as well as no nausea or vomiting. She reports a history of having some mild diverticulitis in the past with intermittent, crampy pain in the left lower abdominal quadrant. She states that this discomfort was different. She reports that she has been on numerous antibiotics in the past several months with the most recent antibiotic being doxycycline for what sounds to be mycoplasma pneumonia. A CT scan was performed, which did show mild enteritis as well as a mild transition point; however, no full obstruction. Since admission, we placed on IV fluids. She states that she has felt much better and has not had any episodes of nausea or vomiting. She also reports that her pain is under control. Upon examination, there are no abdominal hernias and no peritoneal signs. PAST MEDICAL HISTORY: Cardiac arrhythmia, gastroesophageal reflux disease, history of diverticulosis, arthritis, anxiety, depression. PAST SURGICAL HISTORY: Open total abdominal hysterectomy, section x2, bladder suspension, cardiac ablation, tubal ligation and appendectomy. ALLERGIES: CEPHALEXIN, PENICILLIN. MEDICATIONS: Aspirin, estradiol, flecainide, fluticasone, lorazepam, metoprolol 25 mg daily, propranolol 20 mg q.1h. p.r.n. SOCIAL HISTORY: Social alcohol. Negative smoke. FAMILY HISTORY: Mother with breast cancer. VITAL SIGNS: Temperature 98.2, pulse 88, respirations 20, pulse ox 97% on room air. REVIEW OF SYSTEMS: A well-nourished female in no acute distress. She is not experiencing any shortness of breath or difficulty breathing. No chest pain, palpitations, diaphoresis. She presented with nausea and vomiting as well as crampy lower abdominal pain; however, has had none since being admitted. No hematemesis, no coffee ground emesis. Her last bowel movement was yesterday morning. She states she has irritable bowel with intermittent episodes of diarrhea and constipation, no red blood per rectum, no dark tarry stools. No fever or chills. No recent inadvertent weight loss. All other review systems negative. PHYSICAL EXAMINATION: CHEST: Clear. Good breath sounds bilaterally. HEART: Regular, no murmurs. EXTREMITIES: No lower extremity edema, negative Homans sign. HEENT: No scleral icterus. NECK: No cervical lymphadenopathy. ABDOMEN: Soft, nondistended. There is mild discomfort in the midabdominal region upon deep palpation. There are no peritoneal signs. SKIN: Warm and dry. LABORATORY DATA: WBC 6.0, hemoglobin 12.4, hematocrit 37, platelets 165. ASSESSMENT AND PLAN: A 72-year-old female with partial small-bowel obstruction most likely secondary to a gastroenteritis. She reports that she has had multiple upper respiratory infections requiring a multitude of antibiotics with the last infection encompassing all mycoplasma pneumonia being on doxycycline. She presented with crampy abdominal pain as well as nausea and vomiting. A CT scan was performed which did show no complete small bowel obstruction; however, a mild area of transition as well as a slightly thickened bowel wall more likely consistent with an enteritis from bacterial overgrowth. There are no hernias detected. She also does have a history of diverticulitis and diverticula are identified in the sigmoid colon; however, no signs of diverticulitis. Recommendations at this point, conservative management with IV fluid hydration and we will incorporates targeted antibacterial therapy for enteropathogenic bacteria with ciprofloxacin and Flagyl. We will also start a clear liquid diet and advance as tolerated. When she is tolerating a diet, has adequate pain control and does show objective evidence of a bowel function, we will discharge her home. Job ID: [id number] DocumentID: [id number] Dictated Date: 10/05/2017 09:19:50 Rn Resource Nurse Date: 10/05/2017 10:04:54 Dictated By: SEBASTIAN ALVARADO MD [facility]
[2017-10-05] MEDS: CIPROFLOXACIN IV 400MG/200ML 200 ML IV SCH ×2 (11:03→22:06)
[2017-10-05] MEDS ORDERED: PROPRANOLOL 20 MG (INDERAL) TABLET PO PRN ×2 (11:15→16:45)
[2017-10-05] MEDS ORDERED: LORazepam 0.5 MG (ATIVAN) TABLET PO PRN (11:15)
[2017-10-05 12:00] VITALS: BP 120/58
--- NOTE | 2017-10-05 12:10 | History & Physical-Hospitalist ---
HPI History of Present Illness: HPI/Chief Complaint CC: SBO HPI: This is a 72yoWF clinic patient of Dr Johnson's presents to the emergency room with complaints of abdominal pain and then had 1 L of emesis and workup revealed small bowel obstruction on CT scan. Dr. Brown is been consulted and patient feels much better and has advance diet to clear liquids. Apparently she has had a couple of rounds of antibiotics most recent was doxycycline and she does have a past medical history of irritable bowel so it is assumed the bowel obstruction is caused by some sort of inflammatory process and will be treated conservatively if at all possible. currently patient denies any pain and wants to be up and around and get back home as soon as possible. Source: patient Exam Limitations: no limitations Date Seen 10/05/17 Time Seen by Provider: 11:00 Attending Physician Lea Escobar Floyd R MD Referring Physician Date of Admission Oct 04, 2017 at 23:46 Home Medications & Allergies Home Medications Reviewed patient Home Medication Reconciliation Form Allergies Allergies Coded Allergies Penicillins (Unverified Allergy, Unknown, 10/05/17) cephalexin (Unverified Allergy, Unknown, 10/05/17) Past Tdfxeqm-Bqhbdk-Atavur Hx Patient Social History Employed/Student: retired Alcohol Use: Regular Use Alcohol Beverage of Choice: Beer, Wine Recreational Drug Use: No Smoking Status: Never a Smoker Physical Abuse Screen: No Sexual Abuse: No Recent Foreign Travel: No Contact w/other who traveled: No Recent Hopitalizations: No Recent Infectious Disease Expo: No Immunizations Up To Date Tetanus Booster (TDap): Unknown Pediatric: No Seasonal Allergies Seasonal Allergies: No Surgeries Yes (loop recorder, bladder sling, fistula) Bladder Surgery, Cardiac (loop recorder), Hysterectomy, Oophorectomy Respiratory Yes Asthma Cardiovascular Yes (TACHYCARDIA; loop recorder placed) Irregular Heartbeat, Palpitations Neurological No Reproductive System Hx Reproductive Disorders: No Sexually Transmitted Disease: No HIV/AIDS: No Female Reproductive Disorders: Denies Genitourinary Yes (bladder sling-prolapse) Gastrointestinal Yes Gastroesophageal Reflux, Diverticulosis, Irritable Bowel Musculoskeletal No (buldging discs, left sacrol iliac) Arthritis Endocrine History of Endocrine Disorders: No HEENT History of HEENT Disorders: Yes HEENT Disorders: Cataract Loss of Vision: Bilateral Hearing Impairment: Denies Cancer No Psychosocial History of Psychiatric Problem: Yes Behavioral Health Disorders: Anxiety, Depression Integumentary History of Skin or Integumenta: No Blood Transfusions History of Blood Disorders: No Family Medical History Family Hx: Alzheimer's disease 19 MOTHER FH: breast cancer 19 MOTHER FH: cardiovascular disease G8 BROTHER FH: scoliosis 19 MOTHER Ventricular fibrillation 19 FATHER ( at 58) Review of Systems Constitutional: see HPI, dizziness, malaise EENTM: no symptoms reported Respiratory: no symptoms reported Cardiovascular: no symptoms reported Gastrointestinal: abdominal pain (LUQ), nausea, vomiting Genitourinary: no symptoms reported Musculoskeletal: no symptoms reported Skin: no symptoms reported Psychiatric/Neurological: No Symptoms Reported All Other Systems Reviewed Negative Unless Noted: Yes Physical Exam Physical Exam Vital Signs Vital Sign - Last 12Hours 10/04/17 10/05/17 18:47 01:47 Temp 98.2 Pulse 88 Resp 20 B/P (MAP) 137/86 (103) Pulse Ox 97 O2 Delivery Room Air Capillary Refill : Less Than 3 Seconds General Appearance: No Apparent Distress, WD/WN Eyes: Bilateral Eye Normal Inspection, Bilateral Eye PERRL HEENT: PERRL/EOMI, Normal ENT Inspection, Pharynx Normal Neck: Full Range of Motion, Normal Inspection, Non Tender, Supple, Carotid Bruit Respiratory: Chest Non Tender, Lungs Clear, Normal Breath Sounds, No Accessory Muscle Use, No Respiratory Distress Cardiovascular: Regular Rate, Rhythm, No Edema, No Gallop, No JVD, No Murmur, Normal Peripheral Pulses Gastrointestinal: Normal Bowel Sounds, No Organomegaly, No Pulsatile Mass, Non Tender, Soft Back: Normal Inspection, No CVA Tenderness, No Vertebral Tenderness Extremity: Normal Capillary Refill, Normal Inspection, Normal Range of Motion, Non Tender, No Calf Tenderness, No Pedal Edema Neurologic/Psychiatric: Alert, Oriented x3, No Motor/Sensory Deficits, Normal Mood/Affect Skin: Normal Color, Warm/Dry Lymphatic: No Adenopathy Results Results/Procedures Lab Laboratory Tests 10/04/17 18:42 10/05/17 06:10 Assessment/Plan Admission Diagnosis Assessment: Acute small bowel obstruction Recently completed 2 rounds of antibiotics most recent was doxycycline History of irritable bowel syndrome History of diverticulosis Assessment and Plan Plan: Pain management IV fluids Advance diet Appreciate Dr. Brown's expertise [facility] Clinical Quality Measures DVT/VTE Risk/Contraindication: Risk Factor Score Per Nursin RFS Level Per Nursing on Admit: 2=Moderate LEA ESCOBAR DO Oct 05, 2017 12:10
[2017-10-05] MEDS: LACTOBACILLUS Acidoph/Bulgar (LACTINEX/FLORANEX) TAB PO SCH (12:44)
[2017-10-05] MEDS: ASPIRIN E.C. 81 MG (ECOTRIN) TAB PO SCH (12:44)
[2017-10-05] MEDS: FLECAINIDE 100 MG (TAMBOCOR) TAB PO SCH ×2 (12:45→20:58)
[2017-10-05] MEDS: LORazepam 0.5 MG (ATIVAN) TABLET PO SCH ×2 (12:50→20:58)
[2017-10-05 16:00] VITALS: BP 156/81
[2017-10-05] MEDS: ACETAMINOPHEN 325 MG TABLET/CAPLET (TYLENOL) PO PRN (16:53)
[2017-10-05 20:00] VITALS: BP 104/55
[2017-10-05] MEDS ORDERED: LORazepam 0.5 MG (ATIVAN) TABLET PO SCH (21:00)
[2017-10-06] VITALS: BP 106/60
[2017-10-06] MEDS: ACETAMINOPHEN 325 MG TABLET/CAPLET (TYLENOL) PO PRN (00:58)
[2017-10-06] MEDS ORDERED: MULTIVIT W/MINERALS TAB (THERAGRAN M) PO SCH (07:00)
[2017-10-06 08:00] VITALS: BP 140/70
[2017-10-06] MEDS ORDERED: FAMOTIDINE 20MG/2ML IV (PEPCID) IVP SCH (09:00)
[2017-10-06] MEDS ORDERED: ASPIRIN E.C. 81 MG (ECOTRIN) TAB PO SCH (09:00)
[2017-10-06] MEDS ORDERED: ESTRADIOL 1 MG TAB (ESTRACE) VG SCH (09:00)
[2017-10-06] MEDS ORDERED: LORATADINE (CLARITIN) 10 MG TAB PO PRN (09:00)
[2017-10-06] MEDS ORDERED: FLUTICASONE NASAL SPRAY (FLONASE) 16 GM BTL NS PRN (09:00)
[2017-10-06] MEDS ORDERED: FAMOTIDINE 20 MG (PEPCID) TABLET PO SCH (09:18)
[2017-10-06] MEDS ORDERED: BISACODYL 5 MG (DULCOLAX) TABLET PO NR (09:19)
[2017-10-06] MEDS: metroNIDAZOLE 500MG/100ML IVPB 100 ML IV SCH (09:20)
[2017-10-06] MEDS: CIPROFLOXACIN IV 400MG/200ML 200 ML IV SCH (09:20)
[2017-10-06] MEDS: FLECAINIDE 100 MG (TAMBOCOR) TAB PO SCH (09:21)
[2017-10-06] MEDS: LORazepam 0.5 MG (ATIVAN) TABLET PO SCH (09:21)
[2017-10-06] MEDS: ASPIRIN E.C. 81 MG (ECOTRIN) TAB PO SCH (09:21)
[2017-10-06] MEDS: LACTOBACILLUS Acidoph/Bulgar (LACTINEX/FLORANEX) TAB PO SCH (09:21)
[2017-10-06] MEDS: D5 1/2 NS W/KCL 20 MEQ/L 1,000 ML IV SCH (09:43)
--- NOTE | 2017-10-06 10:09 | Progress Note-Hospitalist ---
Progress Note HPI/CC on Admission CC: SBO HPI: This is a 72yoWF clinic patient of Dr Johnson's presents to the emergency room with complaints of abdominal pain and then had 1 L of emesis and workup revealed small bowel obstruction on CT scan. Dr. Brown is been consulted and patient feels much better and has advance diet to clear liquids. Apparently she has had a couple of rounds of antibiotics most recent was doxycycline and she does have a past medical history of irritable bowel so it is assumed the bowel obstruction is caused by some sort of inflammatory process and will be treated conservatively if at all possible. currently patient denies any pain and wants to be up and around and get back home as soon as possible. Progress Notes/Assess & Plan Date Seen 10/06/17 Time Seen by Provider: 10:15 Admission Dx/Process Assessment: Acute small bowel obstruction Recently completed 2 rounds of antibiotics most recent was doxycycline History of irritable bowel syndrome History of diverticulosis Diagonsis/Assessment & Plan She is doing well this morning. Still having minor colicky abd pain but is manageable. She is passing gas and small hard stool but no full BM yet. She was started on Dulcolax to help move things along. She is eating and feeling better overall. ROS: Const- "Doing well this morning" Resp- + non-productive cough, no SOB Cardiac- No CP. Denies palpitations GI- + mild abdominal pain, No BM MSK- no joint swelling or pain Psych- in good spirits PE: General- NAD. Up and walking in the halls HEENT- non-traumatic, normocephalic, PERRLA Cardio- RRR, no murmurs rubs or gallops appreciated Resp- Even chest movement, CTAB GI- Mildly tender to deep palpation, soft and non distention, +BS Ext- no LE swelling, FROM of all extremities Neuro- AOx3 Assessment: Acute small bowel obstruction Recently completed 2 rounds of antibiotics most recent was doxycycline History of irritable bowel syndrome History of diverticulosis Plan: Pain management Dr Brown started her on Dulcolax to try and initiate a BM Advance diet prn Appreciate Dr. Brown's expertise restarted Home meds Disp: She needs to have a BM before she will be able to D/C. Allow her to eat regular diet and encourage plenty of fluid and being up and around. Will d/c to home when able KAL GUAJARDO DO Oct 06, 2017 10:09
[2017-10-06] MEDS ORDERED: METR500T PO (11:29)
[2017-10-06] MEDS ORDERED: CIPR500T4 PO (11:29)
[2017-10-06] MEDS ORDERED: ACHD5005 PO (11:29)
--- NOTE | 2017-10-06 11:31 | Discharge Summary-Hospitalist ---
Diagnosis/Chief Complaint Date of Admission Oct 04, 2017 at 23:46 Date of Discharge Discharge Date: Oct 06, 2017 Admission Diagnosis Assessment: Acute small bowel obstruction Recently completed 2 rounds of antibiotics most recent was doxycycline History of irritable bowel syndrome History of diverticulosis Discharge Diagnosis She is doing well this morning. Still having minor colicky abd pain but is manageable. She is passing gas and small hard stool but no full BM yet. She was started on Dulcolax to help move things along. She is eating and feeling better overall. ROS: Const- "Doing well this morning" Resp- + non-productive cough, no SOB Cardiac- No CP. Denies palpitations GI- + mild abdominal pain, No BM MSK- no joint swelling or pain Psych- in good spirits PE: General- NAD. Up and walking in the halls HEENT- non-traumatic, normocephalic, PERRLA Cardio- RRR, no murmurs rubs or gallops appreciated Resp- Even chest movement, CTAB GI- Mildly tender to deep palpation, soft and non distention, +BS Ext- no LE swelling, FROM of all extremities Neuro- AOx3 Assessment: Acute small bowel obstruction Recently completed 2 rounds of antibiotics most recent was doxycycline History of irritable bowel syndrome History of diverticulosis Plan: Pain management Dr Brown started her on Dulcolax to try and initiate a BM Advance diet prn Appreciate Dr. Brown's expertise restarted Home meds Disp: She needs to have a BM before she will be able to D/C. Allow her to eat regular diet and encourage plenty of fluid and being up and around. Will d/c to home when able Discharge Summary Discharge Physical Examination Allergies: Coded Allergies: Penicillins (Unverified Allergy, Unknown, 10/05/17) cephalexin (Unverified Allergy, Unknown, 10/05/17) Vitals & I&Os Vital Signs Date Time Temp Pulse Resp B/P (MAP) Pulse Ox O2 Delivery O2 Flow Rate FiO2 10/06/17 08:00 97.9 70 18 140/70 (93) 97 Room Air Hospital Course Hospital course: Patient had an uneventful hospital course she was admitted placed on IV fluids and IV pain medication and Dr. Brown was consulted. Patient was treated conservatively for small bowel obstruction that appeared to resolve spontaneously with conservative treatment. Patient will complete Cipro and Flagyl for an additional [address] Brown's recommendations and she was deemed stable for discharge and agreeable to that plan. Discharge Home Medications: Active Scripts Active Hydrocodone/Acetaminophen 5/325mg Tablet (Acetaminophen/Hydrocodone Bitart) 1 Tab Tab 1 Tab PO TID Ciprofloxacin HCl 500 Mg Tablet 500 Mg PO BID Reported Tylenol Arthritis (Acetaminophen) 650 Mg Tablet.er 650 Mg PO BID PRN Carol-D 12 Hour Tablet (Fexofenadine/Pseudoephedrine) 1 Each Tab.er.12h 1 Tab PO DAILY PRN Estradiol Tablet (Estradiol) 0.5 Mg Tablet 0.5 Mg VG MOWEFR One Daily For Women 50+ Adv Tb (Multivitamins-Min/FA/Ginkgo) 1 Each Tablet 1 Tab PO DAILY Lorazepam 0.5 Mg Tablet 0.5 Mg PO DAILY PRN Culturelle Capsule (L. Rhamnosus GG/Inulin) 1 Each Cap.sprink 1 Cap PO DAILY Flecainide Acetate 50 Mg Tablet 50 Mg PO BID Lubricant Dry Eye Relief (Carboxymethylcellulose Sodium) 15 Ml Drp.lq.gel OU BID Flonase Allergy Relief (Fluticasone Propionate) 9.9 Ml Lander.susp 2 Sprays NS DAILY PRN Lorazepam 0.5 Mg Tablet 0.5 Mg PO BID Aspir 81 (Aspirin) 81 Mg Tablet.dr 81 Mg PO DAILY Propranolol HCl 20 Mg Tablet 20 Mg PO UD PRN Instructions to patient/family Please see electronic discharge instructions given to patient. Clinical Quality Measures DVT/VTE Risk/Contraindication: Risk Factor Score Per Nursin RFS Level Per Nursing on Admit: 2=Moderate KAL GUAJARDO DO Oct 06, 2017 11:31
--- NOTE | 2017-10-06 11:52 | Progress Note (SOAP) ---
Subjective Date Seen by Provider: Oct 06, 2017 Time Seen by Provider: 11:00 Subjective/Events-last exam doing much better. tolerating regular diet with no nausea/vomiting. no abdominal pain. has not had BM however hx irritable bowel. Objective Exam Vital Signs Date Time Temp Pulse Resp B/P (MAP) Pulse Ox O2 Delivery O2 Flow Rate FiO2 10/06/17 08:00 97.9 70 18 140/70 (93) 97 Room Air 10/06/17 00:00 98.0 79 18 106/60 (75) 96 Room Air 10/05/17 20:00 97.9 79 15 104/55 (71) 96 Room Air 10/05/17 16:00 96.7 68 16 156/81 (106) 98 Room Air 10/05/17 12:00 97.8 76 20 120/58 (78) 98 Room Air I & O 10/06/17 07:00 Intake Total 3450 ml Output Total 3250 ml Balance 200 ml Capillary Refill : Less Than 3 Seconds General Appearance: No Apparent Distress HEENT: PERRL/EOMI Neck: Full Range of Motion Respiratory: Chest Non Tender, Lungs Clear Cardiovascular: Regular Rate, Rhythm Gastrointestinal: normal bowel sounds, non tender, soft Extremity: Normal Capillary Refill Neurologic/Psychiatric: Alert, Oriented x3 Skin: Normal Color Lymphatic: No Adenopathy Assessment/Plan Assessment/Plan Assess & Plan/Chief Complaint gastroenteritis secondary bacterial overgrowth and abx. doing better. cipro and flagyl 5 days to cover enteropath bacteria. ok for home. may continue dulcolax which she takes at home. low residue diet for next week then high fiber(>25g/d) custodial. Clinical Quality Measures DVT/VTE Risk/Contraindication: Risk Factor Score Per Nursin RFS Level Per Nursing on Admit: 2=Moderate SEBASTIAN ALVARADO MD Oct 06, 2017 11:51 am
== END 2017-10-06 13:10 | disposition home or self-care (01) | DRG 390 ==
LOC: EDUNIT# 18:29 → ER 18:31 → 4TH 23:46
PROVIDERS: ADMIT Internal Medicine; ATTEND Internal Medicine
DX: K56.690 Other partial intestinal obstruction (principal); K52.9 Noninfective gastroenteritis and colitis, unspecified; K57.30 Diverticulosis of large intestine without perforation or abscess without bleeding; K21.9 Gastro-esophageal reflux disease without esophagitis; M19.91 Primary osteoarthritis, unspecified site; F41.9 Anxiety disorder, unspecified; F32.9 Major depressive disorder, single episode, unspecified; Z87.01 Personal history of pneumonia (recurrent); Z79.899 Other long term (current) drug therapy
CPT/HCPCS: 36415; 74177; 80053; 81000; 83690; 85025; 96361; 96374; 96375

== ENCOUNTER 2018-04-12 05:43 | Outpatient (CLI) | payer MEDICARE ==
[~2018-04-12] VITALS: Ht 162.6 cm; Wt 55.8 kg
[~2018-04-12 05:43] MED LIST changes: +ACET-2650 PO; +ACHD5005 PO; +CIPR500T4 PO; +DOXY100C2 PO; +ESTR0.5T VG; +FEXO1TAB40 PO; +FLEC50TA PO; +LACT1CAP40 PO; +METR500T PO; +MULT-878 PO
[2018-04-12] MEDS ORDERED: TRAM50TA2 PO (13:26)
[2018-04-12] MEDS ORDERED: HYDR-3820 PO (13:26)
== END 2018-04-12 13:28 | disposition home or self-care (01) ==
LOC: PREOP 05:43
PROVIDERS: ATTEND Surgery
DX: Z01.818 Encounter for other preprocedural examination (principal)

== ENCOUNTER 2018-04-18 09:58 | Day surgery (SDC) | payer MEDICARE ==
[~2018-04-18] VITALS: Ht 162.6 cm; Wt 55.8 kg
[~2018-04-18 09:58] MED LIST changes: +HYDR-3820 PO; +TRAM50TA2 PO
--- NOTE | 2018-04-18 10:03 | Conscious Sedation/ASA ---
Conscious Sedation Pre-Proced Time Reviewed: 10:00 ASA Class: 2 Airway Mallampati Classification: ([place] appropriate class) I. II. III, IV Lungs Heart ASA score ASA 1: a normal healthy patient ASA 2: a patient with a mild systemic disease (mid diabetes, controlled hypertension, obesity ASA 3: a patient with a severe systemic disease that limits activity (angina , COPD, prior Myocardial infarction) ASA 4: a patient with an incapacitating disease that is a constant threat to life (CHF, renal failure) ASA 5: a moribund patient not expected to survive 24 hrs. (ruptured aneurysm) ASA 6: a declared brain patient whose organs are being harvested. For emergent operations, add the letter E after the classification Grade 2 Sedation Plan: Analgesia, Amnesia, Plan communicated to team members, Discussed options with patient/fam, Discussed risks with patient/fam Note The patient is an appropriate candidate to undergo the planned procedure, sedation, and anesthesia. The patient immediately re-assessed prior to indication. SEBASTIAN ALVARADO MD Apr 18, 2018 10:03 am
--- NOTE | 2018-04-18 10:04 | Progress Note-Pre Operative ---
Pre-Operative Progress Note H&P Reviewed The H&P was reviewed, patient examined and no changes noted. Date Seen by Provider: Apr 18, 2018 Time Seen by Provider: 10:00 Date H&P Reviewed: Apr 18, 2018 Time H&P Reviewed: 10:00 Pre-Operative Diagnosis: GERD, dark stools SEBASTIAN ALVARADO MD Apr 18, 2018 10:04 am
[2018-04-18] MEDS ORDERED: NS IV 500 ML 500 ML IV PRN (10:09)
[2018-04-18] MEDS ORDERED: ACETAMINOPHEN 325 MG TABLET PO PRN (10:15)
[2018-04-18] MEDS ORDERED: HURRICAINE EXT TUBE (BENZOCAINE) XX PRN (10:15)
[2018-04-18] MEDS ORDERED: HYDROcodone/APAP 5 MG/325 MG (LORTAB) TAB PO PRN (10:15)
[2018-04-18] MEDS ORDERED: LIDOCAINE JELLY 2% (XYLOCAINE) 5 ML TUBE MM PRN (10:15)
[2018-04-18] MEDS ORDERED: morphine INJ 10 MG/ML 1ML (SYR OR VIAL) IV PRN (10:15)
[2018-04-18] MEDS ORDERED: ONDANSETRON 4 MG/2 ML (SDV) Z0FRAN IV PRN (10:15)
[2018-04-18 10:35] VITALS: BP 122/78
[2018-04-18] MEDS ORDERED: fentaNYL INJECTION 100 MCG/2 ML AMP ONE ×2 (12:28)
[2018-04-18] MEDS ORDERED: LIDOCAINE JELLY 2% (XYLOCAINE) 5 ML TUBE ONE (12:28)
[2018-04-18] MEDS ORDERED: MIDAZOLAM 2 MG/2 ML (VERSED) VIAL ONE ×5 (12:29→13:08)
[2018-04-18] MEDS ORDERED: HURRICAINE EXT TUBE (BENZOCAINE) ONE (12:29)
[2018-04-18] MEDS: fentaNYL INJECTION 100 MCG/2 ML AMP IVP PRN ×4 (12:38→13:04)
[2018-04-18] MEDS: MIDAZOLAM 2 MG/2 ML (VERSED) VIAL IVP PRN ×5 (12:43→13:05)
--- NOTE | 2018-04-18 13:23 | Progress Note-Post Operative ---
Post-Operative Progess Note Surgeon (s)/Hotel Front Office Manager (s) Surgeon SEBASTIAN ALVARADO MD Hotel Front Office Manager: none Pre-Operative Diagnosis GERD, dark stools Post-Operative Diagnosis reflux esophagitis(class B), small-mod HH(2.5cm), mild gastritis. chronic stage 2 ext and int hemorrhoids. Procedure & Operative Findings Date of Procedure 04/18/18 Procedure Performed/Findings EGD with bx. Colonoscopy. Anesthesia Type CS Estimated Blood Loss Estimated blood loss (mL): minimal Specimens/Packing Specimens Removed GE jxn, antrum SEBASTIAN ALVARADO MD Apr 18, 2018 1:23 pm
[2018-04-18] MEDS ORDERED: PANT40TA2 PO (13:25)
--- NOTE | 2018-04-18 13:27 | Discharge Inst-Surgical ---
D/C Lap Instructions-KIDO New, Converted, or Re-Newed RX: RX on Chart Follow Up 6 weeks. Activity as tolerated High Fiber Diet 25g or more per day Avoid Alcohol, Caffeine, Spicy [place] and Acid foods. Drink 64 fluid oz or more of fluids per day. Symptoms to Report: Fever over 101 degree F, Nausea/Vomiting If any problems/questions: Contact your physician or go to Emergency Room SEBASTIAN ALVARADO MD Apr 18, 2018 1:27 pm
[2018-04-18 13:50] VITALS: BP 118/72
[2018-04-18 14:25] VITALS: BP 109/76
[2018-04-18 14:30] VITALS: BP 109/76
--- NOTE | 2018-04-18 21:50 | OPERATIVE REPORT ---
DATE OF SERVICE: 04/18/2018 ATTENDING PRIMARY CARE PHYSICIAN: Dr. Johnson. PREOPERATIVE DIAGNOSES: Abdominal pain, gastroesophageal reflux disease, dark stools. POSTOPERATIVE DIAGNOSES: Reflux esophagitis class B, small to moderate size hiatal hernia approximately 2.5 cm in size, mild gastritis, chronic stage II external and internal hemorrhoids. Remainder of the rectum and colon were normal. PROCEDURE: EGD with biopsy, colonoscopy. SURGEON: Sebastian Alvarado M.D. ANESTHESIA: Conscious sedation. ESTIMATED BLOOD LOSS: Minimal. FINDINGS: EGD, reflux esophagitis class B, small to moderate size hiatal hernia approximately 2.5 cm in size, mild gastritis. No formal ulcerations, polyps or any neoplasms identified. Pylorus and duodenum appeared normal with no distal obstructions. Colonoscopy: Chronic stage II external and internal hemorrhoids with no active bleeding. The remainder of the rectum and colon were normal. There were no polyps or any neoplasms identified. DISPOSITION: The patient tolerated the procedure well. INDICATIONS: The patient is a 72-year-old female who presented to the Emergency Department in September 2017 for crampy abdominal pain, which was followed by nausea and vomiting. She reports that she has had crampy abdominal pain as well as abdominal distention for years and this is likely consistent with an irritable bowel syndrome. However, on that admission, she had reported taking numerous antibiotics for other reasons including mycoplasma pneumonia as well as other issues. A CT scan was performed, which did show enteritis as well as a mild distention; however, no obstruction. She reports that since that admission, she has had a crampy abdominal pain, more related to eating foods with higher fat content. She also reports gastroesophageal reflux disease and does take occasional ibez-flq-mwhgqwf Prilosec, which does help. She did have another episode approximately one week ago and did also notice dark tarry type of stool as well. Her last colonoscopy was in 2004. DESCRIPTION OF PROCEDURE: The patient was brought to the endoscopy suite, laid in left lateral decubitus position. After adequate IV pain and sedating medications and conscious sedation anesthesia, the mouthpiece was applied. Endoscope was placed in the mouth, visualizing the pharynx and hypopharyngeal region. Vocal cords, epiglottis and vallecula identified and appeared to be normal. The endoscope was then gently intubated at the esophageal opening and esophagus insufflated. Endoscope was then advanced through the first, second and third portions of the esophagus at the level of the GE junction, a reflux esophagitis class B identified. There were no ulcers or strictures identified in this region. A biopsy was taken with forceps with visualization of good hemostasis. The endoscope was then advanced in the stomach and then endoscope retroflexed, visualizing a small to moderate size hiatal hernia approximately 2.5 cm in size. There was a mild severity gastritis more towards the stomach antrum. There were no formal ulcerations, polyps or any neoplasms identified. A biopsy was taken of the stomach antrum with forceps for H. pylori with visualization of good hemostasis. The endoscope was then advanced to the pylorus and the first and second portions of duodenum, which appeared normal with no distal obstructions. The endoscope was then slowly withdrawn while taking a second look and suctioning residual air with no additional findings. The patient tolerated this portion of the procedure well. We will recommend the necessary lifestyle and diet accommodation including small and more frequent meals, avoidance of eating at night as well as head elevation while lying supine. She also needs to avoid caffeinated and alcoholic beverages as well as spicy, greasy and acidic foods. We will also proceed with a trial of Protonix 40 mg daily. If she continues to be symptomatic with reflux type symptoms despite maximal medical therapy, we will do further reevaluation with an esophageal manometry. She has normal waveform contractions of the esophagus and no dysmotility and she does have recurrent reflux. She may be a candidate for hiatal hernia repair as well as an antireflux procedure. Under the same conscious sedation anesthesia, we then proceeded with the colonoscopy portion of the procedure. A digital rectal examination was performed, which revealed mild chronic stage II external and internal hemorrhoids, not actively edematous nor inflamed and no bleeding. Normal sphincter tone was felt and there were no palpable masses. The endoscope was then intubated to the anus and rectum gently insufflated. The endoscope was then advanced through the valves of [place] of the rectum with no polyps or any neoplasms identified. The endoscope was then advanced through the sigmoid colon where no diverticulosis identified. We then proceeded through remainder of the descending, transverse, ascending colon to the cecum. There were no polyps, neoplasms or any mucosal inflammatory changes identified throughout the colon or rectum. The endoscope was then slowly withdrawn while taking a second look and suctioning residual air with no additional findings. The patient tolerated the procedure well. We will recommend continued medical management for irritable bowel type of symptoms including high fiber diet with at least 25 to 30 grams of fiber per day as well as copious amounts of water to promote soft stools on a daily basis. She does not need another colonoscopy for another 10 years. Job ID: [id number] DocumentID: [id number] Dictated Date: 04/18/2018 13:31:14 Ultimate Hoops Trainer Date: 04/18/2018 21:50:03 Dictated By: SEBASTIAN ALVARADO MD MTDD
== END 2018-04-18 14:30 | disposition home or self-care (01) ==
LOC: ENDO 09:58
PROVIDERS: ATTEND Surgery
DX: K21.0 Gastro-esophageal reflux disease with esophagitis (principal); K44.9 Diaphragmatic hernia without obstruction or gangrene; K29.70 Gastritis, unspecified, without bleeding; K64.1 Second degree hemorrhoids; F41.9 Anxiety disorder, unspecified; F32.9 Major depressive disorder, single episode, unspecified; Z80.3 Family history of malignant neoplasm of breast; Z79.899 Other long term (current) drug therapy

== ENCOUNTER → 2018-06-27 | Outpatient (CLI) | payer MEDICARE ==
[~2018-06-27] MED LIST changes: +PANT40TA2 PO
--- NOTE | 2018-06-27 13:14 | Diagnostic Imaging Report ---
INDICATION: Report of abnormality noted on outside MRI. TECHNIQUE: Two-view chest at 12:10 p.m. CORRELATION STUDY: 01/23/2016. FINDINGS: The heart size, mediastinal configuration and pulmonary vasculature are within normal limits. Mildly tortuous course of the thoracic aorta. Loop recorder device is superimposed over the left hilum. The lungs are clear with no consolidating infiltrate. There is no significant pleural effusion or pneumothorax. There is mild scoliotic curvature of the thoracic spine along with degenerative change. IMPRESSION: 1. Negative for acute abnormality in the chest. No definitive evidence for abnormal lung parenchymal density. If continued concern, correlation with CT imaging of the chest would be recommended. Dictated by: Dictated on workstation # [id number]
== END ==
LOC: RAD 11:23
PROVIDERS: ATTEND Internal Medicine Rheumatology
DX: R91.1 Solitary pulmonary nodule (principal)
CPT/HCPCS: 71046

== ENCOUNTER → 2018-09-24 | Outpatient (CLI) | payer MEDICARE ==
--- NOTE | 2018-09-24 09:48 | Diagnostic Imaging Report ---
INDICATION: Right upper quadrant pain. TECHNIQUE: Gallbladder sonography performed in routine fashion. FINDINGS: The liver shows normal echogenicity with no focal lesions. Gallbladder was unremarkable with no stones or wall thickening. Common duct measures 5.8 mm. The pancreas is unremarkable to the extent seen. The right kidney was normal and measures 10.4 cm in length. There is no ascites. Sonographic Mejia sign was negative. Hepatic veins and portal vein are patent. IMPRESSION: Negative ultrasound of the right upper quadrant. Dictated by: Dictated on workstation # [id number]
== END ==
LOC: RAD 07:45
PROVIDERS: ATTEND Surgery
DX: R10.11 Right upper quadrant pain (principal); R14.0 Abdominal distension (gaseous); R11.2 Nausea with vomiting, unspecified
CPT/HCPCS: 76705

== ENCOUNTER → 2018-09-25 | Outpatient (CLI) | payer MEDICARE ==
[~2018-09-25] MED LIST changes: +CATHETER FLUSH 10 ML SYR IV PRN
--- NOTE | 2018-09-25 13:50 | Diagnostic Imaging Report ---
Indication: Right upper quadrant pain and bloating. Patient was administered 5.2 mCi technetium 99M Choletec intravenously and imaging over the abdomen was performed. At 60 minutes patient ingested one can of ensure and gallbladder ejection fraction was calculated. There is homogeneous uptake of activity by the liver. There is prompt excretion of activity into the common duct and gallbladder. Normal passage of activity into the small bowel is noted. Gallbladder ejection fraction is normal at 56%. Impression: Normal HIDA scan and gallbladder ejection fraction. Dictated by: Dictated on workstation # [id number]
== END ==
LOC: CARD 09:34
PROVIDERS: ATTEND Surgery
DX: R10.11 Right upper quadrant pain (principal); R14.0 Abdominal distension (gaseous); R11.10 Vomiting, unspecified; R11.2 Nausea with vomiting, unspecified
CPT/HCPCS: 78227

== ENCOUNTER 2018-10-03 13:21 | Outpatient (CLI) | payer MEDICARE ==
[~2018-10-03] VITALS: Ht 162.6 cm; Wt 58.1 kg
[~2018-10-03 13:21] MED LIST changes: -CATHETER FLUSH 10 ML SYR IV PRN
[2018-10-04] MEDS ORDERED: HYDR-3816 PO (11:23)
== END 2018-10-03 14:11 | disposition home or self-care (01) ==
LOC: PREOP 13:21
PROVIDERS: ATTEND Surgery
DX: Z01.818 Encounter for other preprocedural examination (principal)

== ENCOUNTER 2018-10-04 10:50 | Day surgery (SDC) | payer MEDICARE ==
[~2018-10-04] VITALS: Ht 162.6 cm; Wt 58.1 kg
[2018-10-04] MEDS ORDERED: CLINDAMYCIN 600 MG/50 ML IVPB 50 ML IV ONE (11:00)
--- NOTE | 2018-10-04 11:20 | Progress Note-Pre Operative ---
Pre-Operative Progress Note H&P Reviewed The H&P was reviewed, patient examined and no changes noted. Date Seen by Provider: Oct 04, 2018 Time Seen by Provider: 11:20 Date H&P Reviewed: Oct 04, 2018 Time H&P Reviewed: 11:20 Pre-Operative Diagnosis: Biliary Dyskinesia MICKIE PEREZ APRN Oct 04, 2018 11:20
[2018-10-04] MEDS ORDERED: HYDR-3816 PO (11:23)
--- NOTE | 2018-10-04 11:24 | Discharge Inst-Surgical ---
D/C Lap Instructions-KIDO New, Converted, or Re-Newed RX: RX on Chart Follow Up Appt in 2 weeks Activity as tolerated No driving for 24 hours No driving while on pain medications Incentive Spirometry use every 2 hours while awake Regular Diet Symptoms to Report: Fever over 101 degree F, Nausea/Vomiting Infection Signs and Symptoms to report: Increased redness, Foul odor of wound, Increased drainage Bathing instructions: May shower Operative Area Clean/Dry; Keep incision clean/dry If any problems/questions: Contact your physician or go to Emergency Room MICKIE PEREZ APRN Oct 04, 2018 11:24
[2018-10-04] MEDS ORDERED: ACETAMINOPHEN 325 MG TABLET PO PRN (11:30)
[2018-10-04] MEDS ORDERED: HYDROcodone/APAP 5 MG/325 MG (LORTAB) TAB PO ONE (11:30)
[2018-10-04] MEDS ORDERED: morphine INJ 10 MG/ML 1ML (SYR OR VIAL) IVP PRN (11:30)
[2018-10-04] MEDS ORDERED: ONDANSETRON 4 MG/2 ML (SDV) Z0FRAN IVP PRN ×2 (11:30→13:30)
[2018-10-04] MEDS: LACTATED RINGERS 1,000 ML IV PRN ×2 (11:37→13:10)
[2018-10-04] MEDS ORDERED: ONDANSETRON 4 MG/2 ML (SDV) Z0FRAN ONE (11:38)
[2018-10-04] MEDS ORDERED: DEXAMETHASONE 10 MG/ML (DECADRON) 1 ML VIAL ONE (11:38)
[2018-10-04] MEDS ORDERED: MIDAZOLAM 2 MG/2 ML (VERSED) VIAL ONE (11:38)
[2018-10-04] MEDS ORDERED: SEVOFLURANE (ULTANE) 15 ML INHAL SOLN ONE (11:38)
[2018-10-04] MEDS ORDERED: proPOfol 200 MG/20 ML (DIPRIVAN) VIAL IV ONE (11:38)
[2018-10-04] MEDS ORDERED: ROCURONIUM 10 MG/ML 5 ML SYRINGE IV ONE (11:38)
[2018-10-04] MEDS ORDERED: fentaNYL INJECTION 100 MCG/2 ML AMP ONE (11:38)
[2018-10-04 11:48] VITALS: BP 136/83
[2018-10-04] MEDS ORDERED: BUP/EPI 0.5% 1:200,000 (SENSORCAINE) 30 ML VIAL ONE (12:07)
[2018-10-04] MEDS ORDERED: NEOSTIGMINE 1 MG/ML 5 ML SYRINGE ONE (12:54)
[2018-10-04] MEDS ORDERED: GLYCOPYRROLATE 0.2 MG/ML (ROBINUL) 2 ML VIAL ONE (12:54)
--- NOTE | 2018-10-04 12:57 | Progress Note-Post Operative ---
Post-Operative Progess Note Surgeon (s)/Systems Support Officer (s) Surgeon SEBASTIAN ALVARADO MD Systems Support Officer: giovani gaitan SALES REPRESENTATIVE [employer] Pre-Operative Diagnosis Biliary Dyskinesia Post-Operative Diagnosis same Procedure & Operative Findings Date of Procedure 10/04/18 Procedure Performed/Findings laparoscopic cholecystectomy. Anesthesia Type GET Estimated Blood Loss Estimated blood loss (mL): minimal Specimens/Packing Specimens Removed gallbladder SEBASTIAN ALVARADO MD Oct 04, 2018 12:57
[2018-10-04] MEDS ORDERED: morphine INJ 10 MG/ML 1ML (SYR OR VIAL) IVP ONE (13:30)
[2018-10-04 14:05] VITALS: BP 123/69
[2018-10-04] MEDS ORDERED: HYDROcodone/APAP 5 MG/325 MG (LORTAB) TAB ONE (14:24)
[2018-10-04 14:35] VITALS: BP 126/74
[2018-10-04 15:05] VITALS: BP 122/70
[2018-10-04 15:25] VITALS: BP 122/70
--- NOTE | 2018-10-04 16:34 | OPERATIVE REPORT ---
DATE OF SERVICE: 10/04/2018 ATTENDING PRIMARY CARE PHYSICIAN: Dr. Johnson. PREOPERATIVE DIAGNOSIS: Symptomatic biliary dyskinesia. POSTOPERATIVE DIAGNOSIS: Symptomatic biliary dyskinesia. PROCEDURE PERFORMED: Laparoscopic cholecystectomy. SURGEON: Sebastian Brown MD. DRUG ABUSE PROGRAM COORDINATOR: Donal Firend APRN. ANESTHESIA: General endotracheal. ESTIMATED BLOOD LOSS: Minimal. FINDINGS: Mild gallbladder dilatation, no gallbladder wall dilatation. No stones. What was visualized, the stomach, omentum and small bowel appeared normal. DISPOSITION: The patient tolerated the procedure well. INDICATIONS: The patient is a 73-year-old female, known to us. We saw her as an inpatient on 10/04/2017, for crampy abdominal pain followed by nausea and vomiting. She had stated that she had similar milder symptoms in the past few years as well, not requiring admission. On that admission, she had reported taking antibiotics for mycoplasma pneumonia. A CT scan was performed, which did show a mild enteritis; however, no other abnormalities. Since that time, she has had two other admissions for crampy abdominal pain related to eating foods. She reports that she has had some issues with reflux and has been taking Prilosec. We did an EGD and colonoscopy on 04/18/2018. Findings included a reflux esophagitis stage II, small to moderate size hiatal hernia, 2.5 cm in size. Biopsies were negative for H. pylori as well as negative for Hardy esophagus. She continues to have symptoms, including feeling sickly and nauseous with episodes of pain in the epigastric region as well as a right upper abdominal quadrant on an intermittent basis. She states that this has been occurring for greater than 4 years; however, in the past year, her symptoms have become much more frequent as well as more severe. She also reports that specific foods, especially things that are greasy or fatty make her symptoms worse. She did have an ultrasound performed, which did not show any gallstones and this was followed by a HIDA scan, which showed a normal ejection fraction of 56%. However, she has had the same type of sickly feeling that day with nausea and felt like she had to vomit; however, did not. Her symptoms are consistent with a biliary dyskinesia. DESCRIPTION OF PROCEDURE: The patient was brought to the operating room, laid supine on the table. After adequate IV pain and sedating medications and general endotracheal intubation, the abdomen was prepped and draped in standard surgical fashion. A 0.5% Marcaine with epinephrine was used to anesthetize the overlying skin in the left upper abdominal quadrant and a transverse skin incision made using a 15-blade. An #0 silk suture was applied to the medial aspect of the incision for traction and a Veress needle inserted with a low opening pressure of 0 mmHg and the abdomen was then insufflated to 15 mmHg pressure. The Veress needle was removed and a 5 mm Xcel trocar placed followed by a 5 mm 45-degree angle laparoscope visualizing the peritoneal cavity. A 4-quadrant abdominal exploration was performed. There was a dilated gallbladder; however, there was no gallbladder wall inflammation. What was visualized, the stomach, omentum, small bowel appeared normal. Under direct visualization, we then proceed to place a supraumbilical 10 mm port after the skin and peritoneal lining were anesthetized using 0.5% Marcaine with epinephrine and a transverse skin incision made using 15-blade. In a similar manner, a right upper abdominal quadrant 5 mm port was placed. The patient was then placed in reverse Trendelenburg position as well as plane right side up, left side down. The gallbladder was then retracted anteriorly and superiorly and the hepatoduodenal ligament opened and dissected using blunt dissection as well as cautery and a hook instrument. The critical view of safety was identified, including the triangle of Calot as well as the cystic artery and duct as the only two structures going into the gallbladder as well as the cystic plate behind the proximal gallbladder. A timeout was then taken and the cystic duct and artery were then clipped proximally, distally and cut with EndoShears. The gallbladder was then dissected off the liver bed using electrocautery and hook instrument with visualization of good hemostasis as well as no leaking ducts of Luschka. The gallbladder was removed through the 10 mm port site using an EndoCatch bag. The 10 mm port site fascia and peritoneum were then closed under direct visualization using a Stephan-India device and #0 Vicryl suture. The abdomen was desufflated and remaining ports removed. All skin incisions were closed using 4-0 Monocryl running subcuticular sutures. Wounds were then cleaned and covered with Dermabond. The patient tolerated the procedure well. We will start IV and oral pain medication as well as a clear liquid diet. Once she is tolerating clears, has good pain control with oral pain medication and is ambulating well, we will discharge her home. She will be instructed to do no heavy lifting or exertion for the next two weeks and slowly advance diet with a clear liquid diet with broad-based soups and drinks and then to slowly increase as tolerated; however, there is a normal adjustment period after surgical removal of the gallbladder until her symptoms go away. Job ID: [id number] DocumentID: [id number] Dictated Date: 10/04/2018 13:10:50 Video Machines Mechanic Date: 10/04/2018 16:33:51 Dictated By: SEBASTIAN BROWN MD MTDD
== END 2018-10-04 15:25 | disposition home or self-care (01) ==
LOC: SDC 10:50
PROVIDERS: ATTEND Surgery
DX: K81.1 Chronic cholecystitis (principal); I47.1 Supraventricular tachycardia; K21.9 Gastro-esophageal reflux disease without esophagitis; K44.9 Diaphragmatic hernia without obstruction or gangrene; Z79.82 Long term (current) use of aspirin; Z79.899 Other long term (current) drug therapy
CPT/HCPCS: 87081; 94664

== ENCOUNTER 2020-11-20 12:53 | Outpatient (RCR) | payer MEDICARE ==
[~2020-11-20 12:53] MED LIST changes: +ACHYD1T PO; -CIPR500T4 PO; +CIPR500T5 PO; +HYDR-34 PO; -HYDR-3820 PO; -METO-387 PO; +MTP25TSR PO; -TRAM50TA2 PO; +TRM50T PO
== END 2020-11-22 | disposition home or self-care (01) ==
PROVIDERS: ATTEND Orthopaedic Surgery Sports Medicine
DX: M17.12 Unilateral primary osteoarthritis, left knee (principal); R26.9 Unspecified abnormalities of gait and mobility

== ENCOUNTER 2021-01-14 14:07 | Outpatient (RCR) | payer MEDICARE | END 2021-01-14 17:00 | disposition home or self-care (01) | PROVIDERS: ATTEND Orthopaedic Surgery Sports Medicine | DX: M17.12 Unilateral primary osteoarthritis, left knee (principal) ==

== ENCOUNTER → 2021-03-11 | Outpatient (CLI) | payer MEDICARE ==
--- NOTE | 2021-03-11 15:06 | Diagnostic Imaging Report ---
INDICATION: Frontal headache AP, Valverde and lateral views of paranasal sinuses are obtained. No paranasal sinus air-fluid levels identified. No significant mural thickening is seen and there is no evidence of bone destruction. IMPRESSION: No radiographic evidence of acute sinusitis. Dictated by: Dictated on workstation # [id number]
== END ==
LOC: RAD 14:15
PROVIDERS: ATTEND Internal Medicine
DX: J32.9 Chronic sinusitis, unspecified (principal)
CPT/HCPCS: 70220

== ENCOUNTER 2021-07-22 14:09 | Outpatient (RCR) | payer MEDICARE ==
[~2021-07-22 14:09] MED LIST changes: -DOXY100C2 PO; +DOXY100C5 PO
== END 2021-07-26 | disposition home or self-care (01) ==
PROVIDERS: ATTEND Orthopaedic Surgery Orthopaedic Trauma
DX: M47.26 Other spondylosis with radiculopathy, lumbar region (principal)

== ENCOUNTER → 2022-07-18 | Outpatient (CLI) | payer MEDICARE ==
--- NOTE | 2022-07-18 09:21 | Diagnostic Imaging Report ---
INDICATION: Pelvic and left hip pain AP view of the pelvis is obtained with coned AP and frog-leg views of left hip. FINDINGS: No acute fracture or dislocation is identified. No abnormal lytic or sclerotic focus is seen, and there is no radiopaque foreign body. IMPRESSION: No acute abnormality. Dictated by: Dictated on workstation # [id number]
== END ==
LOC: RAD 09:07
PROVIDERS: ATTEND Nurse Practitioner Family
DX: M25.552 Pain in left hip (principal); R10.2 Pelvic and perineal pain

== ENCOUNTER → 2022-09-13 | Outpatient (CLI) | payer MEDICARE ==
[2022-09-13 11:25] LABS: HEMATOCRIT 44 % (35-52); HEMOGLOBIN 14.6 g/dL (11.5-16.0); MEAN CORPUSCULAR HEMOGLOBIN 32 pg (25-34); MEAN CORPUSCULAR HGB CONC 34 g/dL (32-36); MEAN CORPUSCULAR VOLUME 96 fL (80-99); MEAN PLATELET VOLUME 8.6 fL (9.0-12.2); PLATELET COUNT 252 10^3/uL (130-400); WHITE BLOOD COUNT 7.8 10^3/uL (4.3-11.0)
[2022-09-13 11:44] LABS: ALANINE AMINOTRANSFERASE 33 U/L (0-55); ALBUMIN 4.5 GM/DL (3.2-4.5); ALKALINE PHOSPHATASE 58 U/L (40-136); BILIRUBIN,TOTAL 0.4 MG/DL (0.1-1.0); BUN/CREATININE RATIO 25; CALCIUM 9.5 MG/DL (8.5-10.1); CARBON DIOXIDE 26 MMOL/L (21-32); CHLORIDE 101 MMOL/L (98-107); CREATININE SERUM 0.83 MG/DL (0.60-1.30); GFR ESTIMATED 73; GLUCOSE 99 MG/DL (70-105); POTASSIUM 3.6 MMOL/L (3.6-5.0); SODIUM 138 MMOL/L (135-145); TOTAL PROTEIN 7.2 GM/DL (6.4-8.2)
--- NOTE | 2022-09-13 13:45 | Diagnostic Imaging Report ---
EXAMINATION: CHEST (PA AND LATERAL) CLINICAL INDICATION: 77-year-old female, cough, wheezing, shortness of breath. COMPARISON: June 27, 2018. FINDINGS: Heart size and mediastinal contours are unchanged. There is no identified pneumothorax. There is no large pleural effusion. There is no identified focal airspace consolidation. IMPRESSION: 1. No identified acute cardiopulmonary abnormality. Dictated by: Dictated on workstation # [id number]
== END ==
LOC: RAD 11:09
PROVIDERS: ATTEND Nurse Practitioner Family
DX: R05.9 Cough, unspecified (principal); R06.00 Dyspnea, unspecified; R06.2 Wheezing; R06.02 Shortness of breath
CPT/HCPCS: 36415; 71046; 80053; 84484; 85027; 85379; 86738

== ENCOUNTER 2022-11-10 14:55 | Outpatient (RCR) | payer MEDICARE | END 2022-11-15 | disposition home or self-care (01) | PROVIDERS: ATTEND Nurse Practitioner Family | DX: M54.16 Radiculopathy, lumbar region (principal) ==

== ENCOUNTER 2022-12-13 14:22 | Outpatient (RCR) | payer MEDICARE | END 2022-12-16 | disposition home or self-care (01) | PROVIDERS: ATTEND Nurse Practitioner Family | DX: M54.16 Radiculopathy, lumbar region (principal) ==

== ENCOUNTER 2023-01-10 13:39 | Outpatient (RCR) | payer MEDICARE | END 2023-01-15 | disposition home or self-care (01) | PROVIDERS: ATTEND Nurse Practitioner Family | DX: M54.16 Radiculopathy, lumbar region (principal) ==

== ENCOUNTER 2023-01-31 15:00 | Outpatient (RCR) | payer MEDICARE | END 2023-02-15 | disposition home or self-care (01) | PROVIDERS: ATTEND Nurse Practitioner Family | DX: M54.16 Radiculopathy, lumbar region (principal) ==

== ENCOUNTER 2023-03-14 13:45 | Outpatient (RCR) | payer MEDICARE | END 2023-03-17 | disposition home or self-care (01) | PROVIDERS: ATTEND Nurse Practitioner Family | DX: M54.16 Radiculopathy, lumbar region (principal) ==

== ENCOUNTER 2023-03-29 14:14 | Outpatient (RCR) | payer MEDICARE | END 2023-04-17 | disposition home or self-care (01) | PROVIDERS: ATTEND Nurse Practitioner Family | DX: M54.16 Radiculopathy, lumbar region (principal) ==

== ENCOUNTER 2023-07-02 11:11 | Emergency (ER) | payer MEDICARE ==
[~2023-07-02] VITALS: Ht 162 cm; Wt 59.0 kg
--- NOTE | 2023-07-02 11:32 | ED Head Injury ---
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 REPORTS WORKING WITH HER TRASH BIN AT HOME WHEN SHE FELL INTO IT, STRIKING HER FACE ET BENDING HER NECK BACK, "POPPING IT". NO ACTIVE BLEEDING AT THIS TIME. PT C/O NECK PAIN, DEFORMITY NOTED TO NOSE, BRUISING ET SWELLING NOTED TO LT CHEEK. NO OTHER C/O VOICED. PT DENIES LOC OR STRIKING HEAD ON ANYTHING ELSE. Source: patient Exam Limitations: no limitations History of Present Illness Date Seen by Provider: Jul 02, 2023 Time Seen by Provider: 11:20 Initial Comments 77-year-old female presents to the ER after a fall. States that she tripped on the trash can lid, and fell into the trash bin. She states she landed on her knees but her face hit the trash can. She reports she then went backwards, felt a pop in her neck. She did not fall all the way to the ground, she did not hit the back of her head. She presents with swelling to the left side of her face, she states that her nose was bleeding, it has stopped bleeding at this time. Small superficial laceration next to the left side of her mouth. Patient takes aspirin daily. Allergies and Home Medications Allergies Coded Allergies: Penicillins (Verified Allergy, Unknown, 04/18/18) cephalexin (Verified Allergy, Unknown, 04/18/18) Patient Home Medication List Home Medication List Reviewed: Yes Acetaminophen (Tylenol Arthritis) 650 Mg Tablet.er, 650 MG PO BID PRN for PAIN- MILD, (Reported) Entered as Reported by: MAXIMINO PARDO on 10/05/17 0943 Aspirin (Aspir 81) 81 Mg Tablet.dr, 81 MG PO DAILY, (Reported) Entered as Reported by: SHIVA CARDOSO on 01/23/16 0312 Carboxymethylcellulose Sodium (Lubricant Dry Eye Relief) 15 Ml Drp.lq.gel, OU BID, (Reported) Entered as Reported by: CESAR SHIRLEY on 01/23/16 0448 Estradiol (Estradiol Tablet) 0.5 Mg Tablet, 0.5 MG VG MoWeFr, (Reported) Entered as Reported by: MAXIMINO PARDO on 10/05/17 0943 Flecainide Acetate (Flecainide Acetate) 50 Mg Tablet, 50 MG PO BID, (Reported) Entered as Reported by: NAIN BIRD on 10/05/17 0017 Fluticasone Propionate (Flonase Allergy Relief) 9.9 Ml Durant.susp, 2 SPRAYS NS DAILY PRN for ALLERGIES, (Reported) Entered as Reported by: CESAR SHIRLEY on 01/23/16 0447 Hydrocodone Bit/Acetaminophen (HYDROcodone/APAP 7.5/325 TAB) 1 Each Tablet, 1-2 EACH PO Q4H PRN for PAIN-MODERATE Prescribed by: MICKIE PEREZ on 10/04/18 1123 Lorazepam (Lorazepam) 0.5 Mg Tablet, 0.5 MG PO BID, (Reported) Entered as Reported by: SHIVA CARDOSO on 01/23/16 0312 Lorazepam (Lorazepam) 0.5 Mg Tablet, 0.5 MG PO DAILY PRN for ANXIETY, (Reported) Entered as Reported by: MAXIMINO PARDO on 10/05/17 0943 Multivitamins-Min/FA/Ginkgo (One Daily For Women 50+ Adv Tb) 1 Each Tablet, 1 TAB PO DAILY, (Reported) Entered as Reported by: MAXIMINO PARDO on 10/05/17 0943 Propranolol HCl (Propranolol HCl) 20 Mg Tablet, 20 MG PO UD PRN for TACHYCARDIA, (Reported) Entered as Reported by: SHVIA CARDOSO on 01/23/16 0312 Tramadol HCl (Tramadol HCl) 50 Mg Tablet, 50 MG PO TID PRN for PAIN-MILD, (Reported) Entered as Reported by: LEANNA SHEFFIELD on 04/12/18 1326 Review of Systems Review of Systems Constitutional: see HPI Past Xiveabc-Qoxdrj-Qonris Hx Patient Social History Tobacco Use?: No Use of E-Cig and/or Vaping dev: No Substance use?: No Alcohol Use?: No Pt feels they are or have been: No Immunizations Up To Date Tetanus Booster (TDap): Unknown PED Vaccines UTD: No First/Initial COVID19 Vaccinat: X3 Second COVID19 Vaccination Jerry: X3 Third COVID19 Vaccination Date: X3 Seasonal Allergies Seasonal Allergies: Yes Past Medical History Surgeries: Yes (loop recorder, bladder sling, fistula,C/S X2) Appendectomy, Bladder Surgery, Cardiac, Section, Hysterectomy, Oophorectomy, Tubal Ligation Respiratory: Yes Chronic Bronchitis Cardiac: Yes (TACHYCARDIA; loop recorder placed) Irregular Heartbeat, Palpitations Neurological: No Reproductive Disorders: No Female Reproductive Disorders: Denies Sexually Transmitted Disease: No HIV/AIDS: No Genitourinary: No Gastrointestinal: Yes Gastroesophageal Reflux, Diverticulosis, Gall Bladder Disease, Irritable Bowel Musculoskeletal: No (buldging discs, left sacrol iliac) Arthritis Endocrine: No HEENT: Yes Cataract Loss of Vision: Bilateral Hearing Impairment: Denies Cancer: No Psychosocial: Yes Anxiety, Depression Integumentary: No Blood Disorders: No Family Medical History Alzheimer's disease 19 MOTHER FH: breast cancer 19 MOTHER FH: cardiovascular disease G8 BROTHER FH: scoliosis 19 MOTHER Ventricular fibrillation 19 FATHER ( at 58) Physical Exam Vital Signs Vital Signs - First Documented 07/02/23 11:16 Temp 35.8 Pulse 86 Resp 20 B/P (MAP) 176/93 (120) Pulse Ox 96 O2 Delivery Room Air Capillary Refill : Less Than 3 Seconds Height, Weight, BMI Height: 5'4.00" Weight: 128lbs. 0.0oz. 58.035562ay; 22.00 BMI Method:Stated General Appearance: WD/WN, no apparent distress HEENT: PERRL/EOMI, normal ENT inspection, TMs normal, pharynx normal, other (Swelling and ecchymosis to left cheek) Neck: supple, tender lateral, tender midline Cardiovascular: regular rate, rhythm Respiratory: lungs clear, normal breath sounds, no respiratory distress, no accessory muscle use Extremities: normal range of motion, normal inspection Psychiatric: alert Crainal Nerves: normal hearing, normal speech, PERRL Motor/Sensory: no motor deficit, no sensory deficit Skin: normal color, warm/dry Progress/Results/Core Measures Results/Orders My Orders Orders - RAJAT FERNANDO APRN Ct Head/Face/Cervical Wo (07/02/23 11:27) Knee, Left, 3 Views (07/02/23 11:33) Travon Bandage (07/02/23 12:13) Vital Signs/I&O 07/02/23 07/02/23 11:16 12:41 Temp 35.8 35.8 Pulse 86 86 Resp 20 20 B/P (MAP) 176/93 (120) 156/88 Pulse Ox 96 96 O2 Delivery Room Air Room Air Blood Pressure Mean: 120 Progress Progress Note : Progress Note Patient seen and evaluated, resting comfortably in bed, no acute distress. Based on exam and symptoms, CT of the head, neck, face ordered. 1214 imaging reviewed. No intracranial process or skull fracture, no fracture midface or mandible, no fracture or malalignment of the cervical spine. The x- ray shows no acute fracture. Results discussed with patient. C-collar removed. Patient has full range of motion of neck. Patient instructed to follow-up with primary care provider. Instructed to take Tylenol or ibuprofen as needed for pain. Discharge instructions and return precautions provided. Diagnostic Imaging Diagonstic Imaging: CT Plain Films/CT/US/NM/MRI: facial bones, c-spine, head Comments [facility], [place] NAME: MOSHE MIRELES [facility] REC#: [id number] PT STATUS: REG ER : 1945 PHYSICIAN: RAJAT FERNANDO APRN ADMIT DATE: 07/02/23/ER Signed Date of Exam:07/02/23 CT HEAD/FACE/CERVICAL WO PROCEDURE: CT head, face, cervical spine without contrast. TECHNIQUE: Multiple contiguous axial images were obtained through the head, neck, and facial bones without the use of intravenous contrast. Sagittal and coronal reformations through the cervical spine and facial bones were also performed. All CT scans use one or more of the following dose optimizing techniques: automated exposure control, MA and/or KvP adjustment based on a patient size and exam type, or iterative reconstruction. INDICATION: Trauma COMPARISON: 04/07/2023 FINDINGS: Head: No hyperdense hemorrhage or space-occupying mass. No hydrocephalus or midline shift. No evidence of territorial infarct. Basilar cisterns are patent. No focal scalp swelling. No skull fracture. The mastoid air cells are clear. Face: No fracture of the nasal bones, osseous nasal 222septum or anterior nasal spine. The orbits, zygomatic arches, maxillary sinus sorto, alveolar ridge of the maxilla and pterygoid plates are all intact. Normal alignment of the temporal mandibular joints. No acute mandibular fracture. Paranasal sinuses are clear. No globe rupture or retrobulbar hematoma. Cervical spine: No acute fracture or traumatic malalignment. No high-grade spinal canal narrowing. Airway is patent. No cervical lymphadenopathy. Visualized thyroid is normal. IMPRESSION: 1. No acute intracranial process or skull fracture. 2. No acute fracture in the mid face or mandible. 3. No acute fracture or traumatic malalignment of the cervical spine. Dictated by: Dictated on workstation # [id number] Dict: 07/02/23 1150 Trans: 07/02/231156 [facility] [id number] Interpreted by: VERNA CONWAY MD Electronically signed by: VERNA CONWAY MD 07/02/231156 Diagonstic Imaging: Xray Plain Films/CT/US/NM/MRI: knee Comments [facility], [place] NAME: MOSHE MIRELES [facility] REC#: [id number] PT STATUS: REG ER : 1945 PHYSICIAN: RAJAT FERNANDO APRN ADMIT DATE: 07/02/23/ER Signed Date of Exam:07/02/23 KNEE, LEFT, 3 VIEWS EXAMINATION: Left knee radiograph TECHNIQUE: AP, oblique, and lateral views of the left knee obtained. HISTORY: knee pain COMPARISON: None available. FINDINGS: Soft tissue thickening around the patella. No acute fracture. Mild to moderate joint space narrowing with marginal osteophyte formation. No joint effusion. IMPRESSION: No acute fracture. Dictated by: Dictated on workstation # [id number] Dict: 07/02/23 1201 Trans: 07/02/23 120 [facility] [id number] Interpreted by: IRVIN MEDEIROS DO Electronically signed by: IRVIN MEDEIROS DO 07/02/23 120 Departure Impression Primary Impression: Head injury Additional Impressions: Knee pain Injury of face Disposition: 01 HOME, SELF-CARE Condition: Stable Departure-Patient Inst. Decision time for Depature: 12:14 Referrals: YULIET ORDONEZ MD (PCP/Family) Primary Care Physician Patient Instructions: Head Injury in Adults (DC) Add. Discharge Instructions: Follow-up with primary care provider. You may take Tylenol or ibuprofen as needed for pain. Return for abnormal behavior, difficulty doing normal activities, weakness on one side your body, or any other new, concerning, or worsening symptoms. All discharge instructions reviewed with patient and/or family. Voiced understanding. RAJAT FERNANDO APRN Jul 02, 2023 11:32
--- NOTE | 2023-07-02 11:58 | Diagnostic Imaging Report ---
PROCEDURE: CT head, face, cervical spine without contrast. TECHNIQUE: Multiple contiguous axial images were obtained through the head, neck, and facial bones without the use of intravenous contrast. Sagittal and coronal reformations through the cervical spine and facial bones were also performed. All CT scans use one or more of the following dose optimizing techniques: automated exposure control, MA and/or KvP adjustment based on a patient size and exam type, or iterative reconstruction. INDICATION: Trauma COMPARISON: 04/07/2023 FINDINGS: Head: No hyperdense hemorrhage or space-occupying mass. No hydrocephalus or midline shift. No evidence of territorial infarct. Basilar cisterns are patent. No focal scalp swelling. No skull fracture. The mastoid air cells are clear. Face: No fracture of the nasal bones, osseous nasal 222septum or anterior nasal spine. The orbits, zygomatic arches, maxillary sinus sorto, alveolar ridge of the maxilla and pterygoid plates are all intact. Normal alignment of the temporal mandibular joints. No acute mandibular fracture. Paranasal sinuses are clear. No globe rupture or retrobulbar hematoma. Cervical spine: No acute fracture or traumatic malalignment. No high-grade spinal canal narrowing. Airway is patent. No cervical lymphadenopathy. Visualized thyroid is normal. IMPRESSION: 1. No acute intracranial process or skull fracture. 2. No acute fracture in the mid face or mandible. 3. No acute fracture or traumatic malalignment of the cervical spine. Dictated by: Dictated on workstation # [id number]
--- NOTE | 2023-07-02 12:04 | Diagnostic Imaging Report ---
EXAMINATION: Left knee radiograph TECHNIQUE: AP, oblique, and lateral views of the left knee obtained. HISTORY: knee pain COMPARISON: None available. FINDINGS: Soft tissue thickening around the patella. No acute fracture. Mild to moderate joint space narrowing with marginal osteophyte formation. No joint effusion. IMPRESSION: No acute fracture. Dictated by: Dictated on workstation # [id number]
[2023-07-02 12:27] VITALS: BP 163/84
== END 2023-07-02 12:33 | disposition home or self-care (01) ==
LOC: EDUNIT# 11:11 → ER 11:13
DX: S09.90XA Unspecified injury of head, initial encounter (principal); S00.83XA Contusion of other part of head, initial encounter; M25.562 Pain in left knee; Z79.82 Long term (current) use of aspirin; W01.198A Fall on same level from slipping, tripping and stumbling with subsequent striking against other object, initial encounter
CPT/HCPCS: 70450; 70486; 72125; 73562